=== PATIENT | male | born 1965 | race Caucasian/White ===

== ENCOUNTER 2019-06-09 12:14 | Inpatient (IN) | payer MEDICARE, OTHER ==
[~2019-06-09] VITALS: Ht 180.3 cm; Wt 41.3 kg
[~2019-06-09 12:14] MED LIST: ASPIR 8181 MG PO; B COMPLEX WITH1 EACH PO; Bumetanide PO; CARVEDILOL6.25 MG PO; HUMALOG MI100 UNIT/2 SQ; HUMALOG100 UNIT/1; LEVOTHYROXINE100 MCG PO; Metolazone PO; SIMVASTATIN10 MG PO; SPIRONOLACTONE25 MG PO; TORSEMIDE20 MG PO
--- OUTSIDE RECORDS SUMMARY | 2019-06-09 12:18 | XMS REPORT ---
Author [facility] Address Unknown Phone Unavailable Care Team Providers Care Corporate Responsibility Officer Name Role Phone PRAMOD HANLEY Unavailable Unavailable BEST BAUMANN Unavailable Unavailable Tim COLLIER Unavailable Unavailable Payers Payer Name Policy Type Policy Number Effective Date Expiration Date Problems This patient has no known problems. Allergies, Adverse Reactions, Alerts Allergy Name Allergy Type Status Severity Reaction(s) Onset Date Inactive Date Treating Clinician Comments heparin DA Active U 2018-11-28 00:00:00 heparin DA Active U 2016-02-05 00:00:00 Medications This patient has no known medications. Results Test Description Test Time Test Comments Text Results Atomic Results Result Comments - SP COM CAROTID ANGIO UNIL 2018-12-24 18:20:00 FAX: Nat Mo MD [phone] [place]: St: DIS FAX: Luciano Muller MD [phone] Name: ROHIT MARION [facility] : 1965 Age/S: [address] Unit #: [id number] Loc: [place], [place] [address] Phys: Luciano Muller MD Acct: [id number] Dis Date: 20181203 Status: DIS IN PHONE #: Exam Date: 12/01/2018 1033 FAX #: Reason: SAH EXAMS: CPT CODE: [id number] SP COM CAROTID ANGIO UNIL [id number] PRE PROCEDURAL DIAGNOSIS: 1. Subarachnoid hemorrhage and intracerebral hemorrhage 2. Fall, syncope/dizziness POST PROCEDURAL DIAGNOSIS: 1. Subarachnoid hemorrhage and intracerebral hemorrhage 2. Fall, syncope/dizziness PROCEDURE: 1. Selective catheter ization of bilateral common carotid arteries. 2. Selective catheterization of aortic arch. 3. Selective catheterization of right vertebral artery. 4. Diagnostic angiogram of aortic arch, bilateral common carotid arteries, and right vertebral artery. 5. Ultrasound guided percutaneous entry into right femoral artery. 6. 3-D rotational angiogram via catheterization of the left common carotid artery. 7. 3D rotational angiogram via catheterization of the right vertebral artery. 8. Vascular closure ANESTHESIA: MAC APPROACH: right femoral artery using modified Seldinger technique with a micropuncture set. 5 sheath sheath placed. CONTRAST: 288 cc Omnipaque 300. FLUORO: Time 38.3 min, A plane and B Plane - 2762 mGy PRIMARY SURGEON: Loren Estrada D.O. ESTIMATED BLOOD LOSS: Approximately 150 mL. INFORMED CONSENT: The procedures risks, benefits, and alternatives were discussed with the patient and family. They agreed to proceed. All questions were answered. INDICATION: The patient is a 53 year old Male who presented with syncopal event. The patient was on a treadmill and felt lightheaded. He was found on the ground. He has intracerebral hemorrhage and subarachnoid hemorrhage on CT. CTA of the head done on 11/28/2018 does not reveal any evidence of aneurysm. The cerebral angiogram is considered the gold standard. It is required to best assess for PAGE 1 Signed Report (CONTINUED) FAX: Nat Mo MD [phone] [place]: St: DIS FAX: Luciano Muller MD [phone] Name: ROHIT MARION [facility] : 1965 Age/S: 53/M [address] [place] [address] Blvd Unit #: [id number] Loc: [place], [place] [address] Phys: Luciano Muller MD Acct: [id number] Dis Date: 20181203 Status: DIS IN PHONE #: Exam Date: 12/01/2018 1033 FAX #: Reason: SAH EXAMS: CPT CODE: [id number] SP COM CAROTID ANGIO UNIL [id number] <Continued> evidence of aneurysm or arteriovenous malformation or fistula. Therefore angiographic definition is required to define continued care. TECHNIQUE: After informed consent the patient was brought to the angiography suite and both groin regions were prepped and draped in the usual sterile fashion. The patient demographics, procedure to be performed, patient position, and equipment to be used were confirmed between the performing physicians and support team. Using ultrasound guidance, the right common femoral artery was entered using modified Seldinger technique. A 5 F sheath was placed over a 0.035" PTFE floppy wire using modified Seldinger technique with imaging of the common iliac artery confirming sheath placement. A pigtail catheter was advanced over the aortic arch. Multiple oblique images over the arch at the great vessels was obtained using a pressure injector of 15 cc/sec for 30 cc total. The catheter was straightened with a guide wire and removed. A 5 F diagnostic catheter in conjunction with a .035" angled Glidewire was used to selectively catheterize the bilateral common carotid arteries and right vertebral artery. After each vessel was selected multiple AP, lateral, oblique and magnified angiographic runs were performed with filming over the head and neck. All catheters were removed following confirmation of parent vessel integrity. Hemostasis was attained at the entry site by Mynx. There were no complications during or immediately after the procedure. FINDINGS: AORTIC ARCH: The aortic arch was selectively catheterized. DSA images of aortic arch demonstrate a normal configuration of the arch and great vessels. The arch is class Type I. The origin of the right common carotid artery is on the back wall of the brachiocephalic making it very difficult to access. Visualized daughter branches are normal in distribution. RIGHT COMMON CAROTID: The right common carotid artery was selectively catheterized. The carotid bifurcation is located at the C3-4 level. There is no significant stenosis at the carotid bifurcation. PAGE 2 Signed Report (CONTINUED) FAX: Nat Mo MD [phone] [place]: St: DIS FAX: Luciano Muller MD [phone] Name: ROHIT MARION [facility] : 1965 Age/S: 53/M [address] [place] [address] Blvd Unit #: [id number] Loc: [place] [address] Phys: Luciano Muller MD Acct: [id number] Dis Date: 20181203 Status: DIS IN PHONE #: Exam Date: 12/01/2018 1033 FAX #: Reason: SAH EXAMS: CPT CODE: [id number] SP COM CAROTID ANGIO UNIL [id number] <Continued> RIGHT COMMON CAROTID: The right common carotid artery was selectively catheterized. The upper cervical, petrous, cavernous, and supraclinoid portions of the internal carotid artery opacify normally outside mild atherosclerotic disease and supraclinoid narrowing. The ophthalmic artery opacifies normally. The PCOM artery is small and clears readily. There is duplicate middle cerebral arteries. They opacify normally outside mild atherosclerotic disease. The anterior cerebral artery opacifies normally. There is robust opacification of the anterior communicating artery with opacification of the contralateral A2 distribution. There are normal arterial, capillary and venous phases. No evidence of vasculitis, aneurysm, branch block or AV shunting is seen. There are no areas with absent capillary blush. Major venous sinuses are patent. LEFT COMMON CAROTID (neck): The left common carotid artery was selectively catheterized. The carotid bifurcation is located at the C3-4 level. There is no significant stenosis at the carotid bifurcation. There is mild to moderate narrowing with atherosclerotic plaque at the carotid bulb. This is without flow limitation. LEFT COMMON CAROTID (head): The left common carotid artery was selectively catheterized. The cervical, petrous, cavernous, and supraclinoid portions of the internal carotid artery opacify with mild to moderate atherosclerotic disease. The ophthalmic artery opacifies normally. The PCOM artery opacifies normally. The middle cerebral artery opacifies normally outside some mild atherosclerotic disease. There is a hypoplastic anterior cerebral artery without any significant opacification. There are normal arterial, capillary and venous phases. No evidence of vasculitis, aneurysm, branch block or AV shunting is seen. There are no areas with absent capillary blush. Major venous sinuses are patent. 3D ROTATIONAL ANGIOGRAM (head): 3-D rotational images, post-processed and reviewed on a separate workstation. This was done for better visualization of the left carotid segment over the head. RIGHT VERTEBRAL ARTERY: The right vertebral artery was selectively catheterized. The distal V2, V3, and V4 segments of the right vertebral artery opacify normally. There is a right AICA-PICA complex. There is minimal back-filling of the hypoplastic distal left vertebral artery. There is a left AICA PICA complex. 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 Otherwise the basilar artery, apex, and their branches opacify normally. There is PAGE 3 Signed Report (CONTINUED) FAX: Nat Mo MD [phone] [place]: St: DIS FAX: Luciano Muller MD [phone] Name: ROHIT MARION [facility] : 1965 Age/S: 53/M [address] [place] [address] Blvd Unit #: [id number] Loc: [address] [address] Phys: Luciano Muller MD Acct: [id number] Dis Date: 20181203 Status: DIS IN PHONE #: Exam Date: 12/01/2018 1033 FAX #: Reason: SAH EXAMS: CPT CODE: [id number] [facility] CAROTID ANGIO UNIL [id number] <Continued> also a small fenestration seen in the left proximal GMAT TUTOR. Otherwise the remainder of the left PICA opacifies normally. There is flash filling of the right posterior communicating artery. There is no opacification of the left posterior communicating artery. No evidence of vasculitis, aneurysm, arteriovenous shunting, or branch block. Major venous sinuses are patent. 3D ROTATIONAL ANGIOGRAM (head): A 3D rotational angiogram was required. This allowed for better visualization of the right vertebral artery. This angiogram, distinctly acquired, reconstructed, and reviewed on a separate workstation, demonstrated 3D. IMPRESSION: 1. 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 at 1820 Reported and signed by: Loren Estrada M.D. CC: Nat Castaneda; Luciano Muller MD Technologist: Garfield Young, RT(R); Rolanda Beasley RT(R)(CT) Trnazrd Date/Time/By: 12/24/2018 (1819) : By: [email or web address] Orig Print D/T: S: 12/24/2018 (1822) PAGE 4 Signed Report GLUBED 2018-12-21 15:25:00 GLUBED (test code=GLUBED) 127 MG/DL 70-110 Performed by certified gear milling machine set up operator at [facility] - XR CLAVICLE COMP [id number] 12:07:00 FAX: Nat Mo MD [phone] [place]: St: ADM FAX: Jefferson Miguel [phone] Name: ROHIT MARION [facility] : 1965 Age/S: 53/M [address] [place] [address] Blvd Unit #: [id number] Loc: [place] [address] Phys: Jefferson Charlton MD Acct: [id number] Dis Date: Status: ADM IN PHONE #: [phone] Exam Date: 12/21/2018 1049 FAX #: [phone] Reason: F/U FRACTURE AND ASSESS HEALING EXAMS: CPT CODE: [id number] [place] [id number] CLINICAL HISTORY: Follow-up fracture and assess healing. COMPARISON: Chest x-ray performed on November 29, 2018. Films of left clavicle demonstrate fracture involving the distal end of the left clavicle with fracture line still visible. No significant callus forma tion is noted. Continued follow-up is recommended. Electronically S igned by Cecilia Villareal on 12/21/2018 at 1207 Reported and signed by: Michael Villareal M.D. CC: Nat english; Jefferson Charlton MD Technologist: RT Herrera (R) Trnscrd Date/Time/By: 12/21/2018 (9366) : By: Yuval Orig Print D/T: S: 12/21/2018 (9165) PAGE 1 Signed Report GLUBED 2018-12-21 06:20:00* Test Item Value Reference Range Comments GLUBED (test code=GLUBED) 92 MG/DL 70-110 Performed by certified gear milling machine set up operator at [facility] [id number] 21:39:00* Test Item Value Reference Range Comments GLUBED (test code=GLUBED) 202 MG/DL 70-110 Performed by certified gear milling machine set up operator at [facility] [id number] 18:04:00* Test Item Value Reference Range Comments GLUBED (test code=GLUBED) 123 MG/DL 70-110 Performed by certified gear milling machine set up operator at [facility] CBC W/AUTO [id number] 16:13:00* Test Item Value Reference Range Comments WHITE BLOOD CELL (test code=WBC) 4.81 x10 3/uL 4.5-11.0 RED BLOOD CELL (test code=RBC) 2.37 x10 6/uL 4.00-5.60 HEMOGLOBIN (test code=HGB) 7.6 g/dL 12.5-16.9 HEMATOCRIT (test code=HCT) 23.2 % 37.5-50.7 MEAN CELL VOLUME (test code=MCV) 97.9 fL 81.0-99.0 MEAN CELL HGB (test code=MCH) 32.1 pg 27.0-33.0 MEAN CELL HGB CONCETRATION (test code=MCHC) 32.8 g/dL 33.0-37.0 RED CELL DISTRIBUTION WIDTH CV (test code=RDW) 15.4 % 11.5-14.5 RED CELL DISTRIBUTION WIDTH SD (test code=RDW-SD) 55.2 fL 37.0-54.0 PLATELET COUNT (test code=PLT) 165 x10 3/uL 150-400 MEAN PLATELET VOLUME (test code=MPV) 11.0 fL 7.0-9.0 NEUTROPHIL % (test code=NT%) 78.4 % 56.0-77.0 IMMATURE GRANULOCYTE % (test code=IG%) 0.6 % 0.0-2.0 LYMPHOCYTE % (test code=LY%) 7.9 % 14.0-32.0 MONOCYTE % (test code=MO%) 8.7 % 4.8-9.0 EOSINOPHIL % (test code=EO%) 4.0 % 0.3-3.7 BASOPHIL % (test code=BA%) 0.4 % 0.0-2.0 NUCLEATED RBC % (test code=NRBC%) 0.0 % 0-0 NEUTROPHIL # (test code=NT#) 3.77 x10 3/uL 2.0-7.6 IMMATURE GRANULOCYTE # (test code=IG#) 0.03 x10 3/uL 0.00-0.03 LYMPHOCYTE # (test code=LY#) 0.38 x10 3/uL 1.0-3.8 MONOCYTE # (test code=MO#) 0.42 x10 3/uL 0.1-0.8 EOSINOPHIL # (test code=EO#) 0.19 x10 3/uL 0.0-0.2 BASOPHIL # (test code=BA#) 0.02 x10 3/uL 0.0-0.2 NUCLEATED RBC # (test code=NRBC#) 0.00 x10 3/uL 0.0-0.1 MANUAL DIFF REQUIRED (test code=MDIFF) NO [id number] 11:08:00* Test Item Value Reference Range Comments GLUBED (test code=GLUBED) 137 MG/DL 70-110 Performed by certified gear milling machine set up operator at [facility] [id number] 06:49:00* Test Item Value Reference Range Comments GLUBED (test code=GLUBED) 248 MG/DL 70-110 Performed by certified gear milling machine set up operator at [facility] [id number] 00:24:00* Test Item Value Reference Range Comments GLUBED (test code=GLUBED) 212 MG/DL 70-110 Performed by certified gear milling machine set up operator at [facility] [id number] 22:25:00* Test Item Value Reference Range Comments GLUBED (test code=GLUBED) 137 MG/DL 70-110 Performed by certified gear milling machine set up operator at [facility] [id number] 20:48:00* Test Item Value Reference Range Comments GLUBED (test code=GLUBED) 60 MG/DL 70-110 Performed by certified gear milling machine set up operator at [facility] [id number] 16:25:00* Test Item Value Reference Range Comments GLUBED (test code=GLUBED) 111 MG/DL 70-110 Performed by certified gear milling machine set up operator at [facility] [id number] 12:13:00* Test Item Value Reference Range Comments GLUBED (test code=GLUBED) 121 MG/DL 70-110 Performed by certified gear milling machine set up operator at [facility] [id number] 06:21:00* Test Item Value Reference Range Comments GLUBED (test code=GLUBED) 258 MG/DL 70-110 Performed by certified gear milling machine set up operator at [facility] [id number] 20:46:00* Test Item Value Reference Range Comments GLUBED (test code=GLUBED) 208 MG/DL 70-110 Performed by certified gear milling machine set up operator at [facility] [id number] 16:51:00* Test Item Value Reference Range Comments GLUBED (test code=GLUBED) 87 MG/DL 70-110 Performed by certified gear milling machine set up operator at [facility] [id number] 11:36:00* Test Item Value Reference Range Comments GLUBED (test code=GLUBED) 77 MG/DL 70-110 Performed by certified gear milling machine set up operator at [facility] [id number] 07:45:00* Test Item Value Reference Range Comments GLUBED (test code=GLUBED) 292 MG/DL 70-110 Performed by certified gear milling machine set up operator at [facility] [id number] 06:46:00* Test Item Value Reference Range Comments GLUBED (test code=GLUBED) 459 MG/DL 70-110 Performed by certified gear milling machine set up operator at [facility] [id number] 20:29:00* Test Item Value Reference Range Comments GLUBED (test code=GLUBED) 149 MG/DL 70-110 Performed by certified gear milling machine set up operator at [facility] [id number] 18:03:00* Test Item Value Reference Range Comments GLUBED (test code=GLUBED) 80 MG/DL 70-110 Performed by certified gear milling machine set up operator at [facility] [id number] 12:14:00* Test Item Value Reference Range Comments GLUBED (test code=GLUBED) 129 MG/DL 70-110 Performed by certified gear milling machine set up operator at [facility] [id number] 12:14:00* Test Item Value Reference Range Comments GLUBED (test code=GLUBED) 129 MG/DL 70-110 Performed by certified gear milling machine set up operator at [facility] [id number] 09:39:00* Test Item Value Reference Range Comments GLUBED (test code=GLUBED) 257 MG/DL 70-110 Performed by certified gear milling machine set up operator at [facility] [id number] 06:30:00* Test Item Value Reference Range Comments GLUBED (test code=GLUBED) 122 MG/DL 70-110 Performed by certified gear milling machine set up operator at [facility] [id number] 20:03:00* Test Item Value Reference Range Comments GLUBED (test code=GLUBED) 94 MG/DL 70-110 Performed by certified gear milling machine set up operator at [facility] [id number] 16:25:00* Test Item Value Reference Range Comments GLUBED (test code=GLUBED) 112 MG/DL 70-110 Performed by certified gear milling machine set up operator at [facility] [id number] 14:00:00* Test Item Value Reference Range Comments GLUBED (test code=GLUBED) 123 MG/DL 70-110 Performed by certified gear milling machine set up operator at [facility] [id number] 12:24:00* Test Item Value Reference Range Comments GLUBED (test code=GLUBED) 54 MG/DL 70-110 Performed by certified gear milling machine set up operator at [facility] [id number] 05:49:00* Test Item Value Reference Range Comments GLUBED (test code=GLUBED) 281 MG/DL 70-110 Performed by certified gear milling machine set up operator at [facility] [id number] 20:03:00* Test Item Value Reference Range Comments GLUBED (test code=GLUBED) 177 MG/DL 70-110 Performed by certified gear milling machine set up operator at [facility] [id number] 16:12:00* Test Item Value Reference Range Comments GLUBED (test code=GLUBED) 77 MG/DL 70-110 Performed by certified gear milling machine set up operator at [facility] [id number] 12:09:00* Test Item Value Reference Range Comments GLUBED (test code=GLUBED) 101 MG/DL 70-110 Performed by certified gear milling machine set up operator at [facility] HGB [id number] 07:39:00* Test Item Value Reference Range Comments HEMOGLOBIN (test code=HGB) 8.1 g/dL 12.5-16.9 HEMATOCRIT (test code=HCT) 25.8 % 37.5-50.7 BASIC METABOLIC [id number] 07:29:00* Test Item Value Reference Range Comments SODIUM (test code=NA) 133 mEq/L 134-147 POTASSIUM (test code=K) 5.0 mEq/L 3.4-5.0 CHLORIDE (test code=CL) 98 mEq/L 100-108 CARBON DIOXIDE (test code=CO2) 24 mEq/L 21-33 ANION GAP (test code=GAP) 16 0-20 GLUCOSE (test code=GLU) 280 mg/dL 70-110 BLOOD UREA NITROGEN (test code=BUN) 105 mg/dL 7-18 GLOMERULAR FILTRATION RATE (test code=GFR) 6.8 90-95 Units of measure=ml/min/1.73 m2 CREATININE (test code=CREAT) 8.3 mg/dL 0.6-1.3 CALCIUM (test code=CA) 8.5 mg/dL 8.0-10.5 [id number] 07:29:00* Test Item Value Reference Range Comments PHOSPHOROUS (test code=PHOS) 6.9 MG/DL 2.5-4.9 [id number] 06:21:00* Test Item Value Reference Range Comments GLUBED (test code=GLUBED) 238 MG/DL 70-110 Performed by certified gear milling machine set up operator at [facility] [id number] 05:29:00* Test Item Value Reference Range Comments GLUBED (test code=GLUBED) 54 MG/DL 70-110 Performed by certified gear milling machine set up operator at [facility] [id number] 05:29:00* Test Item Value Reference Range Comments GLUBED (test code=GLUBED) 12 MG/DL 70-110 Performed by certified gear milling machine set up operator at [facility] [id number] 20:44:00* Test Item Value Reference Range Comments GLUBED (test code=GLUBED) 297 MG/DL 70-110 Performed by certified gear milling machine set up operator at [facility] [id number] 17:15:00* Test Item Value Reference Range Comments GLUBED (test code=GLUBED) 85 MG/DL 70-110 Performed by certified gear milling machine set up operator at [facility] [id number] 11:24:00* Test Item Value Reference Range Comments GLUBED (test code=GLUBED) 285 MG/DL 70-110 Performed by certified gear milling machine set up operator at [facility] [id number] 06:20:00* Test Item Value Reference Range Comments GLUBED (test code=GLUBED) 213 MG/DL 70-110 Performed by certified gear milling machine set up operator at [facility] [id number] 21:27:00* Test Item Value Reference Range Comments GLUBED (test code=GLUBED) 150 MG/DL 70-110 Performed by certified gear milling machine set up operator at [facility] [id number] 17:45:00* Test Item Value Reference Range Comments GLUBED (test code=GLUBED) 89 MG/DL 70-110 Performed by certified gear milling machine set up operator at [facility] BASIC METABOLIC [id number] 15:26:00* Test Item Value Reference Range Comments SODIUM (test code=NA) 137 mEq/L 134-147 POTASSIUM (test code=K) 4.6 mEq/L 3.4-5.0 CHLORIDE (test code=CL) 102 mEq/L 100-108 CARBON DIOXIDE (test code=CO2) 21 mEq/L 21-33 ANION GAP (test code=GAP) 19 0-20 GLUCOSE (test code=GLU) 199 mg/dL 70-110 BLOOD UREA NITROGEN (test code=BUN) 129 mg/dL 7-18 GLOMERULAR FILTRATION RATE (test code=GFR) 5.6 90-95 Units of measure=ml/min/1.73 m2 CREATININE (test code=CREAT) 9.8 mg/dL 0.6-1.3 CALCIUM (test code=CA) 8.0 mg/dL 8.0-10.5 [id number] 15:26:00* Test Item Value Reference Range Comments PHOSPHOROUS (test code=PHOS) 7.6 MG/DL 2.5-4.9 CBC W/AUTO [id number] 15:06:00* Test Item Value Reference Range Comments WHITE BLOOD CELL (test code=WBC) 8.38 x10 3/uL 4.5-11.0 RED BLOOD CELL (test code=RBC) 2.57 x10 6/uL 4.00-5.60 HEMOGLOBIN (test code=HGB) 8.1 g/dL 12.5-16.9 HEMATOCRIT (test code=HCT) 25.7 % 37.5-50.7 MEAN CELL VOLUME (test code=MCV) 100.0 fL 81.0-99.0 MEAN CELL HGB (test code=MCH) 31.5 pg 27.0-33.0 MEAN CELL HGB CONCETRATION (test code=MCHC) 31.5 g/dL 33.0-37.0 RED CELL DISTRIBUTION WIDTH CV (test code=RDW) 14.6 % 11.5-14.5 RED CELL DISTRIBUTION WIDTH SD (test code=RDW-SD) 53.8 fL 37.0-54.0 PLATELET COUNT (test code=PLT) 134 x10 3/uL 150-400 MEAN PLATELET VOLUME (test code=MPV) 12.7 fL 7.0-9.0 NEUTROPHIL % (test code=NT%) 83.2 % 56.0-77.0 IMMATURE GRANULOCYTE % (test code=IG%) 0.5 % 0.0-2.0 LYMPHOCYTE % (test code=LY%) 6.1 % 14.0-32.0 MONOCYTE % (test code=MO%) 7.3 % 4.8-9.0 EOSINOPHIL % (test code=EO%) 2.4 % 0.3-3.7 BASOPHIL % (test code=BA%) 0.5 % 0.0-2.0 NUCLEATED RBC % (test code=NRBC%) 0.0 % 0-0 NEUTROPHIL # (test code=NT#) 6.98 x10 3/uL 2.0-7.6 IMMATURE GRANULOCYTE # (test code=IG#) 0.04 x10 3/uL 0.00-0.03 LYMPHOCYTE # (test code=LY#) 0.51 x10 3/uL 1.0-3.8 MONOCYTE # (test code=MO#) 0.61 x10 3/uL 0.1-0.8 EOSINOPHIL # (test code=EO#) 0.20 x10 3/uL 0.0-0.2 BASOPHIL # (test code=BA#) 0.04 x10 3/uL 0.0-0.2 NUCLEATED RBC # (test code=NRBC#) 0.00 x10 3/uL 0.0-0.1 MANUAL DIFF REQUIRED (test code=MDIFF) NO [id number] 11:44:00* Test Item Value Reference Range Comments GLUBED (test code=GLUBED) 312 MG/DL 70-110 Performed by certified gear milling machine set up operator at [facility] [id number] 07:04:00* Test Item Value Reference Range Comments GLUBED (test code=GLUBED) 43 MG/DL 70-110 Performed by certified gear milling machine set up operator at [facility] [id number] 06:10:00* Test Item Value Reference Range Comments GLUBED (test code=GLUBED) 138 MG/DL 70-110 Performed by certified gear milling machine set up operator at [facility] [id number] 20:08:00* Test Item Value Reference Range Comments GLUBED (test code=GLUBED) 357 MG/DL 70-110 Performed by certified gear milling machine set up operator at [facility] [id number] 16:48:00* Test Item Value Reference Range Comments GLUBED (test code=GLUBED) 77 MG/DL 70-110 Performed by certified gear milling machine set up operator at [facility] [id number] 11:57:00* Test Item Value Reference Range Comments GLUBED (test code=GLUBED) 155 MG/DL 70-110 Performed by certified gear milling machine set up operator at [facility] [id number] 06:33:00* Test Item Value Reference Range Comments GLUBED (test code=GLUBED) 148 MG/DL 70-110 Performed by certified gear milling machine set up operator at [facility] [id number] 19:54:00* Test Item Value Reference Range Comments GLUBED (test code=GLUBED) 130 MG/DL 70-110 Performed by certified gear milling machine set up operator at [facility] [id number] 16:11:00* Test Item Value Reference Range Comments GLUBED (test code=GLUBED) 102 MG/DL 70-110 Performed by certified gear milling machine set up operator at [facility] [id number] 11:39:00* Test Item Value Reference Range Comments GLUBED (test code=GLUBED) 176 MG/DL 70-110 Performed by certified gear milling machine set up operator at [facility] [id number] 06:25:00* Test Item Value Reference Range Comments GLUBED (test code=GLUBED) 132 MG/DL 70-110 Performed by certified gear milling machine set up operator at [facility] [id number] 21:22:00* Test Item Value Reference Range Comments GLUBED (test code=GLUBED) 113 MG/DL 70-110 Performed by certified gear milling machine set up operator at [facility] [id number] 21:19:00* Test Item Value Reference Range Comments GLUBED (test code=GLUBED) 164 MG/DL 70-110 Performed by certified gear milling machine set up operator at [facility] [id number] 17:18:00* Test Item Value Reference Range Comments GLUBED (test code=GLUBED) 82 MG/DL 70-110 Performed by certified gear milling machine set up operator at [facility] [id number] 11:23:00* Test Item Value Reference Range Comments GLUBED (test code=GLUBED) 115 MG/DL 70-110 Performed by certified gear milling machine set up operator at [facility] [id number] 06:45:00* Test Item Value Reference Range Comments GLUBED (test code=GLUBED) 137 MG/DL 70-110 Performed by certified gear milling machine set up operator at [facility] [id number] 06:12:00* Test Item Value Reference Range Comments GLUBED (test code=GLUBED) 49 MG/DL 70-110 Performed by certified gear milling machine set up operator at [facility] [id number] 20:46:00* Test Item Value Reference Range Comments GLUBED (test code=GLUBED) 120 MG/DL 70-110 Performed by certified gear milling machine set up operator at [facility] [id number] 19:13:00* Test Item Value Reference Range Comments GLUBED (test code=GLUBED) 189 MG/DL 70-110 Performed by certified gear milling machine set up operator at [facility] [id number] 11:19:00* Test Item Value Reference Range Comments GLUBED (test code=GLUBED) 386 MG/DL 70-110 Performed by certified gear milling machine set up operator at [facility] [id number] 07:38:00* Test Item Value Reference Range Comments GLUBED (test code=GLUBED) 133 MG/DL 70-110 Performed by certified gear milling machine set up operator at [facility] [id number] 07:38:00* Test Item Value Reference Range Comments GLUBED (test code=GLUBED) 30 MG/DL 70-110 Performed by certified gear milling machine set up operator at [facility] [id number] 19:57:00* Test Item Value Reference Range Comments GLUBED (test code=GLUBED) 94 MG/DL 70-110 Performed by certified gear milling machine set up operator at [facility] [id number] 18:21:00* Test Item Value Reference Range Comments GLUBED (test code=GLUBED) 102 MG/DL 70-110 Performed by certified gear milling machine set up operator at [facility] [id number] 16:53:00* Test Item Value Reference Range Comments GLUBED (test code=GLUBED) 135 MG/DL 70-110 Performed by certified gear milling machine set up operator at [facility] [id number] 11:56:00* Test Item Value Reference Range Comments GLUBED (test code=GLUBED) 162 MG/DL 70-110 Performed by certified gear milling machine set up operator at [facility] [id number] 07:00:00* Test Item Value Reference Range Comments GLUBED (test code=GLUBED) 157 MG/DL 70-110 Performed by certified gear milling machine set up operator at [facility] [id number] 21:14:00* Test Item Value Reference Range Comments GLUBED (test code=GLUBED) 211 MG/DL 70-110 Performed by certified gear milling machine set up operator at [facility] [id number] 16:51:00* Test Item Value Reference Range Comments GLUBED (test code=GLUBED) 97 MG/DL 70-110 Performed by certified gear milling machine set up operator at [facility] [id number] 11:28:00* Test Item Value Reference Range Comments GLUBED (test code=GLUBED) 386 MG/DL 70-110 Performed by certified gear milling machine set up operator at [facility] [id number] 06:24:00* Test Item Value Reference Range Comments GLUBED (test code=GLUBED) 239 MG/DL 70-110 Performed by certified gear milling machine set up operator at [facility] T4 [id number] 22:58:00* Test Item Value Reference Range Comments T4 FREE (test code=T4F) 1.4 ng/dL 0.77-1.61 THYROID STIMULATING [id number] 22:58:00* Test Item Value Reference Range Comments THYROID STIMULATING HORMONE (test code=TSH) 1.82 0.42-5.47 Results in brandyn-International Units/mL HGBA1C%2018-12-06 22:56:00* Test Item Value Reference Range Comments HGBA1C% (test code=HGBA1C%) 6.8 %A1C 4.8-6.0 [id number] 22:25:00* Test Item Value Reference Range Comments GLUBED (test code=GLUBED) 398 MG/DL 70-110 Performed by certified gear milling machine set up operator at [facility] [id number] 19:02:00* Test Item Value Reference Range Comments GLUBED (test code=GLUBED) 185 MG/DL 70-110 Performed by certified gear milling machine set up operator at [facility] [id number] 11:29:00* Test Item Value Reference Range Comments GLUBED (test code=GLUBED) 343 MG/DL 70-110 Performed by certified gear milling machine set up operator at [facility] [id number] 09:56:00* Test Item Value Reference Range Comments GLUBED (test code=GLUBED) 433 MG/DL 70-110 Performed by certified gear milling machine set up operator at [facility] [id number] 08:34:00* Test Item Value Reference Range Comments GLUBED (test code=GLUBED) 444 MG/DL 70-110 Performed by certified gear milling machine set up operator at [facility] [id number] 19:45:00* Test Item Value Reference Range Comments GLUBED (test code=GLUBED) 320 MG/DL 70-110 Performed by certified gear milling machine set up operator at [facility] [id number] 16:31:00* Test Item Value Reference Range Comments GLUBED (test code=GLUBED) 302 MG/DL 70-110 Performed by certified gear milling machine set up operator at [facility] [id number] 12:45:00* Test Item Value Reference Range Comments GLUBED (test code=GLUBED) 386 MG/DL 70-110 Performed by certified gear milling machine set up operator at [facility] [id number] 11:44:00* Test Item Value Reference Range Comments GLUBED (test code=GLUBED) 407 MG/DL 70-110 Performed by certified gear milling machine set up operator at [facility] [id number] 07:02:00* Test Item Value Reference Range Comments GLUBED (test code=GLUBED) 143 MG/DL 70-110 Performed by certified gear milling machine set up operator at [facility] [id number] 07:02:00* Test Item Value Reference Range Comments GLUBED (test code=GLUBED) 570 MG/DL 70-110 Performed by certified gear milling machine set up operator at [facility] [id number] 07:02:00* Test Item Value Reference Range Comments GLUBED (test code=GLUBED) 569 MG/DL 70-110 Performed by certified gear milling machine set up operator at [facility] [id number] 07:02:00* Test Item Value Reference Range Comments GLUBED (test code=GLUBED) 497 MG/DL 70-110 Performed by certified gear milling machine set up operator at [facility] [id number] 23:52:00* Test Item Value Reference Range Comments GLUBED (test code=GLUBED) 210 MG/DL 70-110 Performed by certified gear milling machine set up operator at [facility] [id number] 23:52:00* Test Item Value Reference Range Comments GLUBED (test code=GLUBED) 439 MG/DL 70-110 Performed by certified gear milling machine set up operator at [facility] [id number] 11:25:00* Test Item Value Reference Range Comments GLUBED (test code=GLUBED) 262 MG/DL 70-110 Performed by certified gear milling machine set up operator at [facility] VITAMIN [id number] 08:51:00* Test Item Value Reference Range Comments VITAMIN B12 (test code=VITB12) 952 pg/mL 193-986 FOLIC [id number] 08:51:00* Test Item Value Reference Range Comments FOLIC ACID (test code=FOL) 5.7 ng/mL 3.1-17.5 THYROID STIMULATING [id number] 08:51:00* Test Item Value Reference Range Comments THYROID STIMULATING HORMONE (test code=TSH) 2.98 0.42-5.47 Results in brandyn-International Units/mL VITAMIN D 98-[id number] 08:51:00* Test Item Value Reference Range Comments VITAMIN D 25-HYDROXY (test code=VITD25) 14.0 ng/mL 30-100 VITAMIN [id number] 08:32:00* Test Item Value Reference Range Comments VITAMIN B12 (test code=VITB12) pg/mL 193-986 FOLIC [id number] 08:32:00* Test Item Value Reference Range Comments FOLIC ACID (test code=FOL) ng/mL 3.1-17.5 THYROID STIMULATING [id number] 08:32:00* Test Item Value Reference Range Comments THYROID STIMULATING HORMONE (test code=TSH) 0.42-5.47 VITAMIN D 60-[id number] 08:32:00* Test Item Value Reference Range Comments VITAMIN D 25-HYDROXY (test code=VITD25) 14.0 ng/mL 30-100 [id number] 07:56:00* Test Item Value Reference Range Comments GLUBED (test code=GLUBED) 452 MG/DL 70-110 Performed by certified gear milling machine set up operator at [facility] [id number] 07:56:00* Test Item Value Reference Range Comments GLUBED (test code=GLUBED) 466 MG/DL 70-110 Performed by certified gear milling machine set up operator at [facility] [id number] 06:16:00* Test Item Value Reference Range Comments GLUBED (test code=GLUBED) 250 MG/DL 70-110 Performed by certified gear milling machine set up operator at [facility] [id number] 21:22:00* Test Item Value Reference Range Comments GLUBED (test code=GLUBED) 286 MG/DL 70-110 Performed by certified gear milling machine set up operator at [facility] [id number] 18:01:00* Test Item Value Reference Range Comments GLUBED (test code=GLUBED) 440 MG/DL 70-110 Performed by certified gear milling machine set up operator at [facility] [id number] 11:39:00* Test Item Value Reference Range Comments GLUBED (test code=GLUBED) 177 MG/DL 70-110 Performed by certified gear milling machine set up operator at [facility] CBC W/AUTO [id number] 07:28:00* Test Item Value Reference Range Comments WHITE BLOOD CELL (test code=WBC) 8.05 x10 3/uL 4.5-11.0 RED BLOOD CELL (test code=RBC) 3.15 x10 6/uL 4.00-5.60 HEMOGLOBIN (test code=HGB) 10.1 g/dL 12.5-16.9 HEMATOCRIT (test code=HCT) 32.9 % 37.5-50.7 MEAN CELL VOLUME (test code=MCV) 104.4 fL 81.0-99.0 MEAN CELL HGB (test code=MCH) 32.1 pg 27.0-33.0 MEAN CELL HGB CONCETRATION (test code=MCHC) 30.7 g/dL 33.0-37.0 RED CELL DISTRIBUTION WIDTH CV (test code=RDW) 15.5 % 11.5-14.5 RED CELL DISTRIBUTION WIDTH SD (test code=RDW-SD) 59.1 fL 37.0-54.0 PLATELET COUNT (test code=PLT) 126 x10 3/uL 150-400 MEAN PLATELET VOLUME (test code=MPV) 11.4 fL 7.0-9.0 NEUTROPHIL % (test code=NT%) 78.4 % 56.0-77.0 IMMATURE GRANULOCYTE % (test code=IG%) 0.5 % 0.0-2.0 LYMPHOCYTE % (test code=LY%) 8.8 % 14.0-32.0 MONOCYTE % (test code=MO%) 9.1 % 4.8-9.0 EOSINOPHIL % (test code=EO%) 2.6 % 0.3-3.7 BASOPHIL % (test code=BA%) 0.6 % 0.0-2.0 NUCLEATED RBC % (test code=NRBC%) 0.0 % 0-0 NEUTROPHIL # (test code=NT#) 6.31 x10 3/uL 2.0-7.6 IMMATURE GRANULOCYTE # (test code=IG#) 0.04 x10 3/uL 0.00-0.03 LYMPHOCYTE # (test code=LY#) 0.71 x10 3/uL 1.0-3.8 MONOCYTE # (test code=MO#) 0.73 x10 3/uL 0.1-0.8 EOSINOPHIL # (test code=EO#) 0.21 x10 3/uL 0.0-0.2 BASOPHIL # (test code=BA#) 0.05 x10 3/uL 0.0-0.2 NUCLEATED RBC # (test code=NRBC#) 0.00 x10 3/uL 0.0-0.1 MANUAL DIFF REQUIRED (test code=MDIFF) NO BASIC METABOLIC [id number] 07:21:00* Test Item Value Reference Range Comments SODIUM (test code=NA) 141 mEq/L 134-147 POTASSIUM (test code=K) 4.7 mEq/L 3.4-5.0 CHLORIDE (test code=CL) 106 mEq/L 100-108 CARBON DIOXIDE (test code=CO2) 24 mEq/L 21-33 ANION GAP (test code=GAP) 16 0-20 GLUCOSE (test code=GLU) 116 mg/dL 70-110 BLOOD UREA NITROGEN (test code=BUN) 82 mg/dL 7-18 GLOMERULAR FILTRATION RATE (test code=GFR) 5.8 90-95 Units of measure=ml/min/1.73 m2 CREATININE (test code=CREAT) 9.5 mg/dL 0.6-1.3 CALCIUM (test code=CA) 8.1 mg/dL 8.0-10.5 [id number] 05:55:00* Test Item Value Reference Range Comments GLUBED (test code=GLUBED) 114 MG/DL 70-110 Performed by certified gear milling machine set up operator at [facility] [id number] 00:02:00* Test Item Value Reference Range Comments GLUBED (test code=GLUBED) 134 MG/DL 70-110 Performed by certified gear milling machine set up operator at [facility] [id number] 18:44:00* Test Item Value Reference Range Comments GLUBED (test code=GLUBED) 304 MG/DL 70-110 Performed by certified gear milling machine set up operator at [facility] CBC W/AUTO [id number] 13:10:00* Test Item Value Reference Range Comments WHITE BLOOD CELL (test code=WBC) 7.99 x10 3/uL 4.5-11.0 RED BLOOD CELL (test code=RBC) 3.45 x10 6/uL 4.00-5.60 HEMOGLOBIN (test code=HGB) 11.2 g/dL 12.5-16.9 HEMATOCRIT (test code=HCT) 36.4 % 37.5-50.7 MEAN CELL VOLUME (test code=MCV) 105.5 fL 81.0-99.0 MEAN CELL HGB (test code=MCH) 32.5 pg 27.0-33.0 MEAN CELL HGB CONCETRATION (test code=MCHC) 30.8 g/dL 33.0-37.0 RED CELL DISTRIBUTION WIDTH CV (test code=RDW) 15.3 % 11.5-14.5 RED CELL DISTRIBUTION WIDTH SD (test code=RDW-SD) 59.5 fL 37.0-54.0 PLATELET COUNT (test code=PLT) 98 x10 3/uL 150-400 IMMATURE PLATELET FRACTION (test code=IPF) 3.6 % 0.9-11.2 MEAN PLATELET VOLUME (test code=MPV) 11.7 fL 7.0-9.0 NEUTROPHIL % (test code=NT%) 89.2 % 56.0-77.0 IMMATURE GRANULOCYTE % (test code=IG%) 0.3 % 0.0-2.0 LYMPHOCYTE % (test code=LY%) 3.5 % 14.0-32.0 MONOCYTE % (test code=MO%) 6.8 % 4.8-9.0 EOSINOPHIL % (test code=EO%) 0.1 % 0.3-3.7 BASOPHIL % (test code=BA%) 0.1 % 0.0-2.0 NUCLEATED RBC % (test code=NRBC%) 0.0 % 0-0 NEUTROPHIL # (test code=NT#) 7.13 x10 3/uL 2.0-7.6 IMMATURE GRANULOCYTE # (test code=IG#) 0.02 x10 3/uL 0.00-0.03 LYMPHOCYTE # (test code=LY#) 0.28 x10 3/uL 1.0-3.8 MONOCYTE # (test code=MO#) 0.54 x10 3/uL 0.1-0.8 EOSINOPHIL # (test code=EO#) 0.01 x10 3/uL 0.0-0.2 BASOPHIL # (test code=BA#) 0.01 x10 3/uL 0.0-0.2 NUCLEATED RBC # (test code=NRBC#) 0.00 x10 3/uL 0.0-0.1 MANUAL DIFF REQUIRED (test code=MDIFF) NO PLT [id number] 13:10:00* Test Item Value Reference Range Comments PLATELET ESTIMATE (test code=PLTEST) 148-185 THOUSAND ADEQUATE PLATELET MORPHOLOGY (test code=PLTMORPH) LARGE PLATELETS [id number] 12:43:00* Test Item Value Reference Range Comments GLUBED (test code=GLUBED) 338 MG/DL 70-110 Performed by certified gear milling machine set up operator at [facility] [id number] 07:37:00* Test Item Value Reference Range Comments GLUBED (test code=GLUBED) 304 MG/DL 70-110 Performed by certified gear milling machine set up operator at [facility] CBC W/AUTO [id number] 07:28:00* Test Item Value Reference Range Comments WHITE BLOOD CELL (test code=WBC) 7.99 x10 3/uL 4.5-11.0 RED BLOOD CELL (test code=RBC) 3.45 x10 6/uL 4.00-5.60 HEMOGLOBIN (test code=HGB) 11.2 g/dL 12.5-16.9 HEMATOCRIT (test code=HCT) 36.4 % 37.5-50.7 MEAN CELL VOLUME (test code=MCV) 105.5 fL 81.0-99.0 MEAN CELL HGB (test code=MCH) 32.5 pg 27.0-33.0 MEAN CELL HGB CONCETRATION (test code=MCHC) 30.8 g/dL 33.0-37.0 RED CELL DISTRIBUTION WIDTH CV (test code=RDW) 15.3 % 11.5-14.5 RED CELL DISTRIBUTION WIDTH SD (test code=RDW-SD) 59.5 fL 37.0-54.0 PLATELET COUNT (test code=PLT) 98 x10 3/uL 150-400 IMMATURE PLATELET FRACTION (test code=IPF) 3.6 % 0.9-11.2 MEAN PLATELET VOLUME (test code=MPV) 11.7 fL 7.0-9.0 NEUTROPHIL % (test code=NT%) 89.2 % 56.0-77.0 IMMATURE GRANULOCYTE % (test code=IG%) 0.3 % 0.0-2.0 LYMPHOCYTE % (test code=LY%) 3.5 % 14.0-32.0 MONOCYTE % (test code=MO%) 6.8 % 4.8-9.0 EOSINOPHIL % (test code=EO%) 0.1 % 0.3-3.7 BASOPHIL % (test code=BA%) 0.1 % 0.0-2.0 NUCLEATED RBC % (test code=NRBC%) 0.0 % 0-0 NEUTROPHIL # (test code=NT#) 7.13 x10 3/uL 2.0-7.6 IMMATURE GRANULOCYTE # (test code=IG#) 0.02 x10 3/uL 0.00-0.03 LYMPHOCYTE # (test code=LY#) 0.28 x10 3/uL 1.0-3.8 MONOCYTE # (test code=MO#) 0.54 x10 3/uL 0.1-0.8 EOSINOPHIL # (test code=EO#) 0.01 x10 3/uL 0.0-0.2 BASOPHIL # (test code=BA#) 0.01 x10 3/uL 0.0-0.2 NUCLEATED RBC # (test code=NRBC#) 0.00 x10 3/uL 0.0-0.1 MANUAL DIFF REQUIRED (test code=MDIFF) NO PLT [id number] 07:28:00* Test Item Value Reference Range Comments PLATELET ESTIMATE (test code=PLTEST) THOUSAND ADEQUATE CBC W/AUTO [id number] 07:28:00* Test Item Value Reference Range Comments WHITE BLOOD CELL (test code=WBC) 7.99 x10 3/uL 4.5-11.0 RED BLOOD CELL (test code=RBC) 3.45 x10 6/uL 4.00-5.60 HEMOGLOBIN (test code=HGB) 11.2 g/dL 12.5-16.9 HEMATOCRIT (test code=HCT) 36.4 % 37.5-50.7 MEAN CELL VOLUME (test code=MCV) 105.5 fL 81.0-99.0 MEAN CELL HGB (test code=MCH) 32.5 pg 27.0-33.0 MEAN CELL HGB CONCETRATION (test code=MCHC) 30.8 g/dL 33.0-37.0 RED CELL DISTRIBUTION WIDTH CV (test code=RDW) 15.3 % 11.5-14.5 RED CELL DISTRIBUTION WIDTH SD (test code=RDW-SD) 59.5 fL 37.0-54.0 PLATELET COUNT (test code=PLT) 98 x10 3/uL 150-400 IMMATURE PLATELET FRACTION (test code=IPF) 3.6 % 0.9-11.2 MEAN PLATELET VOLUME (test code=MPV) 11.7 fL 7.0-9.0 NEUTROPHIL % (test code=NT%) 89.2 % 56.0-77.0 IMMATURE GRANULOCYTE % (test code=IG%) 0.3 % 0.0-2.0 LYMPHOCYTE % (test code=LY%) 3.5 % 14.0-32.0 MONOCYTE % (test code=MO%) 6.8 % 4.8-9.0 EOSINOPHIL % (test code=EO%) 0.1 % 0.3-3.7 BASOPHIL % (test code=BA%) 0.1 % 0.0-2.0 NUCLEATED RBC % (test code=NRBC%) 0.0 % 0-0 NEUTROPHIL # (test code=NT#) 7.13 x10 3/uL 2.0-7.6 IMMATURE GRANULOCYTE # (test code=IG#) 0.02 x10 3/uL 0.00-0.03 LYMPHOCYTE # (test code=LY#) 0.28 x10 3/uL 1.0-3.8 MONOCYTE # (test code=MO#) 0.54 x10 3/uL 0.1-0.8 EOSINOPHIL # (test code=EO#) 0.01 x10 3/uL 0.0-0.2 BASOPHIL # (test code=BA#) 0.01 x10 3/uL 0.0-0.2 NUCLEATED RBC # (test code=NRBC#) 0.00 x10 3/uL 0.0-0.1 MANUAL DIFF REQUIRED (test code=MDIFF) NO PLT [id number] 07:28:00* Test Item Value Reference Range Comments PLATELET ESTIMATE (test code=PLTEST) THOUSAND ADEQUATE - CT HEAD/BRAIN W/O [id number] 07:15:00 Name: ROHIT MARION [facility] : 1965 Age/S: 53 / M [address] [place] [address] Unit #: [id number] Loc: [facility] [place] [address] Phys: Hakan Gillis SCHOLARSHIP COUNSELOR Acct: [id number] Dis Date: Status: ADM IN PHONE #: [phone] Exam Date: 12/02/2018 0403 FAX #: [phone] Reason: sah EXAMS: CPT CODE: [id number] CT HEAD/BRAIN W/O CONT 26332 CT head without contrast 12/02/2018 HISTORY: Subarachnoid hemorrhage PROCEDURE: Multiple axial images from the skull base to the skull vertex were obtained without contrast. Coronal and sagittal reconstructed images were performed CT imaging performed at this location utilizes radiation dose optimization techniques which include one or more of the following: -Automated exposure control -Adjustment of the mA and/or kV according to patient size -Use of iterative reconstruction technique CT Radiation Dose DLP 1981 mGy-cm Comparison is made to 11/29/2018 FINDINGS: The right basal ganglia hemorrhage is not significantly changed measuring 5.0 x 3.0 x 2.4 cm. Subarachnoid hemorrhage in the right sylvian fissure is slightly decreased. There is new small volume hemorrhage in the dependent portion of the right lateral ventricle on axial image 50 and the atria of the left lateral ventricle on axial image 51. 4 mm of leftward midline shift is not significantly changed. Small volume anterior right frontal subarachnoid hemorrhage is noted. No new infarct is noted. The vasogenic edema around the large right basal ganglia hemorrhage is unchanged. The visualized mastoid air cells are clear. Right nasal septal deviation is noted. There is no air-fluid level in the visualized paranasal sinuses. Distal internal carotid arterial calcifications are present. IMPRESSION: 1. No change in 5.0 cm right basal ganglia hemorrhage with mild surrounding vasogenic edema and 4 mm leftward midline shift. 2. Slight decreased right sylvian fissure subarachnoid hemorrhage. 3. New small volume intraventricular hemorrhage in both lateral ventricles. No hydrocephalus. SL: [id number] at 0715 Reported and signed by: Ariel Granados M.D. PAGE 1 Signed Report (CONTINUED) Name: ROHIT MARION [facility] : 1965 Age/S: 53 / M [address] [place] [address] Unit #: [id number] Loc: [facility] [place] [address] Phys: Elis, SCHOLARSHIP COUNSELOR Acct: [id number] Dis Date: Status: ADM IN PHONE #: [phone] Exam Date: 12/02/2018 040 FAX #: [phone] Reason: sah EXAMS: CPT CODE: [id number] CT HEAD/BRAIN W/O CONT 48160 < Continued> CC: Elis SCHOLARSHIP COUNSELOR; Nat Castaneda; Luciano Muller MD Technologist:RT Darius(R) CTDI: DLP: Trnscb Date/Time: 12/02/2018 (714) [email or web address] Orig Print D/T: S: 12/02/2018 (07) PAGE 2 Signed Report BASIC METABOLIC [id number] 07:14:00* Test Item Value Reference Range Comments SODIUM (test code=NA) 140 mEq/L 134-147 POTASSIUM (test code=K) 5.0 mEq/L 3.4-5.0 CHLORIDE (test code=CL) 107 mEq/L 100-108 CARBON DIOXIDE (test code=CO2) 22 mEq/L 21-33 ANION GAP (test code=GAP) 16 0-20 GLUCOSE (test code=GLU) 309 mg/dL 70-110 BLOOD UREA NITROGEN (test code=BUN) 57 mg/dL 7-18 GLOMERULAR FILTRATION RATE (test code=GFR) 7.4 90-95 Units of measure=ml/min/1.73 m2 CREATININE (test code=CREAT) 7.7 mg/dL 0.6-1.3 CALCIUM (test code=CA) 8.4 mg/dL 8.0-10.5 [id number] 00:59:00* Test Item Value Reference Range Comments SODIUM (test code=NA) 139 mEq/L 134-147 COMMENTS: While on hyperosmolar [id number] 00:34:00* Test Item Value Reference Range Comments GLUBED (test code=GLUBED) 206 MG/DL 70-110 Performed by certified gear milling machine set up operator at [facility] [id number] 18:09:00* Test Item Value Reference Range Comments SODIUM (test code=NA) 140 mEq/L 134-147 COMMENTS: While on hyperosmolar [id number] 18:01:00* Test Item Value Reference Range Comments GLUBED (test code=GLUBED) 199 MG/DL 70-110 Performed by certified gear milling machine set up operator at [facility] COMPREHENSIVE METABOLIC [id number] 13:40:00* Test Item Value Reference Range Comments SODIUM (test code=NA) 137 mEq/L 134-147 POTASSIUM (test code=K) 4.8 mEq/L 3.4-5.0 CHLORIDE (test code=CL) 103 mEq/L 100-108 CARBON DIOXIDE (test code=CO2) 23 mEq/L 21-33 ANION GAP (test code=GAP) 16 0-20 GLUCOSE (test code=GLU) 317 mg/dL 70-110 BLOOD UREA NITROGEN (test code=BUN) 87 mg/dL 7-18 GLOMERULAR FILTRATION RATE (test code=GFR) 5.9 90-95 Units of measure=ml/min/1.73 m2 CREATININE (test code=CREAT) 9.4 mg/dL 0.6-1.3 Previously reported result: 9.4 mg/dLEdited by: LAURA on 12/01/18: 1340: CREAT previously reported as: 9.4 DH mg/dL previous high TOTAL PROTEIN (test code=PROT) 6.9 g/dL 6.4-8.2 ALBUMIN (test code=ALB) 3.30 g/dL 3.4-5.0 CALCIUM (test code=CA) 8.0 mg/dL 8.0-10.5 BILIRUBIN TOTAL (test code=BILT) 0.4 MG/DL <1.5 SGOT/AST (test code=AST) 11 IUnit/L 15-37 SGPT/ALT (test code=ALT) 11 IUnit/L 15-65 ALKALINE PHOSPHATASE TOTAL (test code=ALKP) 139 IUnit/L 20-125 [id number] 12:53:00* Test Item Value Reference Range Comments SODIUM (test code=NA) 134 mEq/L 134-147 COMMENTS: While on hyperosmolar [id number] 12:30:00* Test Item Value Reference Range Comments GLUBED (test code=GLUBED) 224 MG/DL 70-110 Performed by certified gear milling machine set up operator at [facility] ACUTE HEPATITIS [id number] 08:11:00* Test Item Value Reference Range Comments AB HEPATITIS A IGM (test code=HAVMAB) NON REACTIVE INDEX NON REACT. AG HEPATITIS B SURFACE (test code=HBSAG) NON REACTIVE INDEX NonReactive AB HEPATITIS B CORE IGM (test code=HBCMAB) NON REACTIVE INDEX NON REACT. AB HEPATITIS C (test code=HCVAB) NON REACTIVE INDEX NON REACT. COMMENTS: At start of hemodialysisAB HEPATITIS B [id number] 08:11:00* Test Item Value Reference Range Comments AB HEPATITIS B SURFACE (test code=HBSAB) 77.8 mIU/mL Immunity>9.9 Status of Immunity Anti-HBs Level Inconsistent with Immunity 0.0 - 9.9Consistent with Immunity >9.9Performed At: [facility] [address] [id number] Erwin Kolb MD Ph:[phone] COMMENTS: At start of [id number] 06:14:00* Test Item Value Reference Range Comments GLUBED (test code=GLUBED) 298 MG/DL 70-110 Performed by certified gear milling machine set up operator at [facility] PROTHROMBIN [id number] 06:02:00* Test Item Value Reference Range Comments PROTHROMBIN TIME PATIENT (test code=PTP) 12.3 SECONDS 9.3-12.9 INTERNATIONAL NORMAL RATIO (test code=INR) 1.1 0.8-1.2 TARGET INR BY INDICATION Indication INR1. Prophylaxis of venous thrombosis 2.0 - 3.0 (orthopedic surgery), Prophylaxis of venous thrombosis (other than high-risk surgery), Treatment of Deep Vein Thrombosis/Pulmonary Embolism, Prevention of systemic embolism - Tissue heart valves, Acute Myocardial Infarction (to prevent systemic embolism), Valvular heart disease, Atrial Fibrillation, Bileaflet mechanical valve in aortic position.2. Mechanical prosthetic valves (high risk), 2.5 - 3.5 Presence of Lupus Anticoagulant or Antiphospholipid Antibodies, Prevention of systemic embolism - Acute Myocardial Infarction (to prevent recurrent infarct). THROMBOPLASTIN TIME [id number] 06:02:00* Test Item Value Reference Range Comments THROMBOPLASTIN TIME PARTIAL (test code=PTT) 32.3 Seconds 25.0-39.5 Therapeutic Range: 50.4 - 88.3 Seconds Effective 06/01/2018 COMPREHENSIVE METABOLIC [id number] 05:59:00* Test Item Value Reference Range Comments SODIUM (test code=NA) 137 mEq/L 134-147 POTASSIUM (test code=K) 4.8 mEq/L 3.4-5.0 CHLORIDE (test code=CL) 103 mEq/L 100-108 CARBON DIOXIDE (test code=CO2) 23 mEq/L 21-33 ANION GAP (test code=GAP) 16 0-20 GLUCOSE (test code=GLU) 317 mg/dL 70-110 BLOOD UREA NITROGEN (test code=BUN) 87 mg/dL 7-18 GLOMERULAR FILTRATION RATE (test code=GFR) 5.9 90-95 Units of measure=ml/min/1.73 m2 CREATININE (test code=CREAT) 9.4 mg/dL 0.6-1.3 previous high TOTAL PROTEIN (test code=PROT) 6.9 g/dL 6.4-8.2 ALBUMIN (test code=ALB) 3.30 g/dL 3.4-5.0 CALCIUM (test code=CA) 8.0 mg/dL 8.0-10.5 BILIRUBIN TOTAL (test code=BILT) 0.4 MG/DL <1.5 SGOT/AST (test code=AST) 11 IUnit/L 15-37 SGPT/ALT (test code=ALT) 11 IUnit/L 15-65 ALKALINE PHOSPHATASE TOTAL (test code=ALKP) 139 IUnit/L 20-125 CBC W/AUTO [id number] 05:33:00* Test Item Value Reference Range Comments WHITE BLOOD CELL (test code=WBC) 6.62 x10 3/uL 4.5-11.0 RED BLOOD CELL (test code=RBC) 3.12 x10 6/uL 4.00-5.60 HEMOGLOBIN (test code=HGB) 10.1 g/dL 12.5-16.9 HEMATOCRIT (test code=HCT) 32.7 % 37.5-50.7 MEAN CELL VOLUME (test code=MCV) 104.8 fL 81.0-99.0 MEAN CELL HGB (test code=MCH) 32.4 pg 27.0-33.0 MEAN CELL HGB CONCETRATION (test code=MCHC) 30.9 g/dL 33.0-37.0 RED CELL DISTRIBUTION WIDTH CV (test code=RDW) 15.5 % 11.5-14.5 RED CELL DISTRIBUTION WIDTH SD (test code=RDW-SD) 59.4 fL 37.0-54.0 PLATELET COUNT (test code=PLT) 106 x10 3/uL 150-400 MEAN PLATELET VOLUME (test code=MPV) 11.4 fL 7.0-9.0 NEUTROPHIL % (test code=NT%) 74.1 % 56.0-77.0 IMMATURE GRANULOCYTE % (test code=IG%) 0.2 % 0.0-2.0 LYMPHOCYTE % (test code=LY%) 8.0 % 14.0-32.0 MONOCYTE % (test code=MO%) 11.2 % 4.8-9.0 EOSINOPHIL % (test code=EO%) 6.0 % 0.3-3.7 BASOPHIL % (test code=BA%) 0.5 % 0.0-2.0 NUCLEATED RBC % (test code=NRBC%) 0.0 % 0-0 NEUTROPHIL # (test code=NT#) 4.91 x10 3/uL 2.0-7.6 IMMATURE GRANULOCYTE # (test code=IG#) 0.01 x10 3/uL 0.00-0.03 LYMPHOCYTE # (test code=LY#) 0.53 x10 3/uL 1.0-3.8 MONOCYTE # (test code=MO#) 0.74 x10 3/uL 0.1-0.8 EOSINOPHIL # (test code=EO#) 0.40 x10 3/uL 0.0-0.2 BASOPHIL # (test code=BA#) 0.03 x10 3/uL 0.0-0.2 NUCLEATED RBC # (test code=NRBC#) 0.00 x10 3/uL 0.0-0.1 MANUAL DIFF REQUIRED (test code=MDIFF) NO [id number] 01:21:00* Test Item Value Reference Range Comments SODIUM (test code=NA) 134 mEq/L 134-147 COMMENTS: While on hyperosmolar [id number] 01:04:00* Test Item Value Reference Range Comments GLUBED (test code=GLUBED) 323 MG/DL 70-110 Performed by certified gear milling machine set up operator at [facility] [id number] 18:41:00* Test Item Value Reference Range Comments SODIUM (test code=NA) 137 mEq/L 134-147 COMMENTS: While on hyperosmolar [id number] 18:24:00* Test Item Value Reference Range Comments GLUBED (test code=GLUBED) 188 MG/DL 70-110 Performed by certified gear milling machine set up operator at [facility] [id number] 11:34:00* Test Item Value Reference Range Comments GLUBED (test code=GLUBED) 181 MG/DL 70-110 Performed by certified gear milling machine set up operator at [facility] [id number] 07:36:00* Test Item Value Reference Range Comments GLUBED (test code=GLUBED) 326 MG/DL 70-110 Performed by certified gear milling machine set up operator at [facility] [id number] 06:17:00* Test Item Value Reference Range Comments GLUBED (test code=GLUBED) 362 MG/DL 70-110 Performed by certified gear milling machine set up operator at [facility] BASIC METABOLIC [id number] 05:59:00* Test Item Value Reference Range Comments SODIUM (test code=NA) 133 mEq/L 134-147 POTASSIUM (test code=K) 4.9 mEq/L 3.4-5.0 CHLORIDE (test code=CL) 99 mEq/L 100-108 CARBON DIOXIDE (test code=CO2) 28 mEq/L 21-33 ANION GAP (test code=GAP) 11 0-20 GLUCOSE (test code=GLU) 333 mg/dL 70-110 BLOOD UREA NITROGEN (test code=BUN) 50 mg/dL 7-18 GLOMERULAR FILTRATION RATE (test code=GFR) 7.7 90-95 Units of measure=ml/min/1.73 m2 CREATININE (test code=CREAT) 7.4 mg/dL 0.6-1.3 CALCIUM (test code=CA) 8.5 mg/dL 8.0-10.5 CBC W/AUTO [id number] 05:31:00* Test Item Value Reference Range Comments WHITE BLOOD CELL (test code=WBC) 6.58 x10 3/uL 4.5-11.0 RED BLOOD CELL (test code=RBC) 3.24 x10 6/uL 4.00-5.60 HEMOGLOBIN (test code=HGB) 10.4 g/dL 12.5-16.9 HEMATOCRIT (test code=HCT) 33.7 % 37.5-50.7 MEAN CELL VOLUME (test code=MCV) 104.0 fL 81.0-99.0 MEAN CELL HGB (test code=MCH) 32.1 pg 27.0-33.0 MEAN CELL HGB CONCETRATION (test code=MCHC) 30.9 g/dL 33.0-37.0 RED CELL DISTRIBUTION WIDTH CV (test code=RDW) 15.9 % 11.5-14.5 RED CELL DISTRIBUTION WIDTH SD (test code=RDW-SD) 59.6 fL 37.0-54.0 PLATELET COUNT (test code=PLT) 121 x10 3/uL 150-400 MEAN PLATELET VOLUME (test code=MPV) 11.8 fL 7.0-9.0 NEUTROPHIL % (test code=NT%) 75.5 % 56.0-77.0 IMMATURE GRANULOCYTE % (test code=IG%) 0.2 % 0.0-2.0 LYMPHOCYTE % (test code=LY%) 6.5 % 14.0-32.0 MONOCYTE % (test code=MO%) 12.3 % 4.8-9.0 EOSINOPHIL % (test code=EO%) 4.7 % 0.3-3.7 BASOPHIL % (test code=BA%) 0.8 % 0.0-2.0 NUCLEATED RBC % (test code=NRBC%) 0.0 % 0-0 NEUTROPHIL # (test code=NT#) 4.97 x10 3/uL 2.0-7.6 IMMATURE GRANULOCYTE # (test code=IG#) 0.01 x10 3/uL 0.00-0.03 LYMPHOCYTE # (test code=LY#) 0.43 x10 3/uL 1.0-3.8 MONOCYTE # (test code=MO#) 0.81 x10 3/uL 0.1-0.8 EOSINOPHIL # (test code=EO#) 0.31 x10 3/uL 0.0-0.2 BASOPHIL # (test code=BA#) 0.05 x10 3/uL 0.0-0.2 NUCLEATED RBC # (test code=NRBC#) 0.00 x10 3/uL 0.0-0.1 MANUAL DIFF REQUIRED (test code=MDIFF) NO [id number] 00:32:00* Test Item Value Reference Range Comments GLUBED (test code=GLUBED) 269 MG/DL 70-110 Performed by certified gear milling machine set up operator at [facility] ACUTE HEPATITIS [id number] 18:19:00* Test Item Value Reference Range Comments AB HEPATITIS A IGM (test code=HAVMAB) NON REACTIVE INDEX NON REACT. AG HEPATITIS B SURFACE (test code=HBSAG) NON REACTIVE INDEX NonReactive AB HEPATITIS B CORE IGM (test code=HBCMAB) NON REACTIVE INDEX NON REACT. AB HEPATITIS C (test code=HCVAB) NON REACTIVE INDEX NON REACT. COMMENTS: At start of hemodialysisAB HEPATITIS B [id number] 18:19:00* Test Item Value Reference Range Comments AB HEPATITIS B SURFACE (test code=HBSAB) COMMENTS: At start of hemodialysisACUTE HEPATITIS [id number] 17:52:00* Test Item Value Reference Range Comments AB HEPATITIS A IGM (test code=HAVMAB) INDEX NON REACT. AG HEPATITIS B SURFACE (test code=HBSAG) NON REACTIVE INDEX NonReactive AB HEPATITIS B CORE IGM (test code=HBCMAB) INDEX NON REACT. AB HEPATITIS C (test code=HCVAB) INDEX NON REACT. COMMENTS: At start of hemodialysisAB HEPATITIS B [id number] 17:52:00* Test Item Value Reference Range Comments AB HEPATITIS B SURFACE (test code=HBSAB) COMMENTS: At start of [id number] 17:36:00* Test Item Value Reference Range Comments GLUBED (test code=GLUBED) 162 MG/DL 70-110 Performed by certified gear milling machine set up operator at [facility] [id number] 12:46:00* Test Item Value Reference Range Comments GLUBED (test code=GLUBED) 199 MG/DL 70-110 Performed by certified gear milling machine set up operator at [facility] [id number] 11:58:00* Test Item Value Reference Range Comments GLUBED (test code=GLUBED) 144 MG/DL 70-110 Performed by certified gear milling machine set up operator at [facility] - XR CHEST 1 [id number] 09:50:00 FAX: Nat Mo MD [phone] [place]: St: [facility] FAX: Luciano Muller MD [phone] FAX: Loren Lizarraga DO [phone] Name: ROHIT MARION [facility] : 1965 Age/S: 53/M [address] [place] [address] Unit #: [id number] Loc: [address] [address] Phys: Loren Estrada DO Acct: [id number] Dis Date: Status: ADM IN PH ONE #: [phone] Exam Date: 11/29/2018 0950 FAX #: [phone] Reason: PRE PROCEDURE EXAMS: CPT CODE: [id number] XR CHEST 1 V [id number] CHEST RADIOGRA PH ONE VIEW 11/29/2018 AT 0811 HOURS. CLINICAL HISTORY: Preprocedu re. Subarachnoid hemorrhage. COMPARISON STUDIES: Chest one view fr om yesterday at 1245 hours. FINDINGS: One view of the chest was obtained. Enlarged cardiac silhouette with prior coronary stenting and triple lead AICD battery. Mild central pulmonary vascular congestion with no edema or consolidation. Ill-defined bibasilar subsegmental atelectasi s. No pleural effusion. No destructive bone lesions. IMPR ESSION: 1. Mild central pulmonary vascular congestion with no edema or consolidation. 2. Enlarged cardiac silhouette with coronary stent ing and AICD battery. SL: ER-H Elec tronically Signed by Cecilia Diehl on 1 at 0950 Reported and signed by: Archie Diehl M.D. CC: Nat Castaneda; Luciano Muller MD; Loren Estrada DO Technologist: Ines Cormier RT(R) Trnscrd Date/Time/By: 11/29/2018 (0950) : By: [email or web address] Orig Print D/T: S: 11/29/2018 (0953) PAGE 1 Signed Report PROTHROMBIN [id number] 08:27:00* Test Item Value Reference Range Comments PROTHROMBIN TIME PATIENT (test code=PTP) 12.9 SECONDS 9.3-12.9 INTERNATIONAL NORMAL RATIO (test code=INR) 1.2 0.8-1.2 TARGET INR BY INDICATION Indication INR1. Prophylaxis of venous thrombosis 2.0 - 3.0 (orthopedic surgery), Prophylaxis of venous thrombosis (other than high-risk surgery), Treatment of Deep Vein Thrombosis/Pulmonary Embolism, Prevention of systemic embolism - Tissue heart valves, Acute Myocardial Infarction (to prevent systemic embolism), Valvular heart disease, Atrial Fibrillation, Bileaflet mechanical valve in aortic position.2. Mechanical prosthetic valves (high risk), 2.5 - 3.5 Presence of Lupus Anticoagulant or Antiphospholipid Antibodies, Prevention of systemic embolism - Acute Myocardial Infarction (to prevent recurrent infarct). [id number] 06:09:00* Test Item Value Reference Range Comments GLUBED (test code=GLUBED) 497 MG/DL 70-110 Performed by certified gear milling machine set up operator at [facility] [id number] 06:09:00* Test Item Value Reference Range Comments GLUBED (test code=GLUBED) 490 MG/DL 70-110 Performed by certified gear milling machine set up operator at [facility] [id number] 06:07:00* Test Item Value Reference Range Comments GLUBED (test code=GLUBED) 369 MG/DL 70-110 Performed by certified gear milling machine set up operator at [facility] BASIC METABOLIC [id number] 06:02:00* Test Item Value Reference Range Comments SODIUM (test code=NA) 135 mEq/L 134-147 POTASSIUM (test code=K) 5.2 mEq/L 3.4-5.0 CHLORIDE (test code=CL) 98 mEq/L 100-108 CARBON DIOXIDE (test code=CO2) 28 mEq/L 21-33 ANION GAP (test code=GAP) 14 0-20 GLUCOSE (test code=GLU) 205 mg/dL 70-110 BLOOD UREA NITROGEN (test code=BUN) 94 mg/dL 7-18 GLOMERULAR FILTRATION RATE (test code=GFR) 5.6 90-95 Units of measure=ml/min/1.73 m2 CREATININE (test code=CREAT) 9.8 mg/dL 0.6-1.3 CALCIUM (test code=CA) 8.3 mg/dL 8.0-10.5 - CT HEAD/BRAIN W/O [id number] 05:55:00 Name: ROHIT MARION [facility] : 1965 Age/S: 53 / M [address] [place] [address] Blvd Unit #: [id number] Loc: [place] [address] Phys: Elis,June [employer]OLAR[employer] COUNSELOR Acct: [id number] Dis Date: Status: ADM IN PHONE #: [phone] Exam Date: 11/29/2018451 FAX #: [phone] Reason: sah EXAMS: CPT CODE: [id number] CT HEAD/BRAIN W/O CONT 83110 EXAM: CT, CT HEAD/BRAIN W/O CONTRAST: 11/29/2018, 0447 hours HISTORY: sah COMPARISON: CT angiogram head dated 11/28/2018, [address] head dated 11/28/2018, 1139 hours. TECHNIQUE: CT images were obtained from the foramen magnum to the vertex without the use of intravenous contrast on a multidetector CT. CT imaging was performed with exposure control parameters to reduce radiation dose. Coronal and sagittal reconstructions were obtained. CT radiation dose DLP: 993.60 mGy-cm FINDINGS: Beam hardening artifact limits the optimal evaluation of base of brain and posterior fossa. BRAIN PARENCHYMA: Again identified is intra-axial hemorrhage in the right orbitofrontal region measuring 2.6 x 2.2x 2.3 cm ( AP x TR x CC), similar in size as compared to the prior study with interval increase attenuation. There is increa sing edema in the right frontal lobe with partial effacement of the right lateral ventricle and 3 to 4 mm right to left midline shift. Stable sligh t shift of the interhemispheric fissure to the left. Interval new intra -axial hemorrhage in the right temporal lobe versus accumulating right temporal area subarachnoid hemorrhage. Follow-up noncontrast CT of the head can be obtained for further assessment. Subarachnoid hemorrhage along the right frontal temporal region extending into the sylvian fissure and suprasellar cisterns as seen previously,, grossly stable, however limited limited for evaluation due to recent contrast injection. Intracra nial vascular calcification seen. ORBITS, MASTOIDS AND PARANASAL S INUSES: The visualized orbits are unremarkable. The visualized paranasal s inuses are unremarkable. The mastoid air cells are clear. SKULL: There are no osseous abnormalities. If there is furt her concern for intracranial pathology or acute stroke, MRI of the brain m ay be performed for complete assessment. PAGE 1 Signed Report (CONTINUED) Name: ROHIT MARION [facility] : 1965 Age/S: 53 / M [address] [place] [address] Blvd Unit #: [id number] Loc: [place] [address] Phys: Hakan Gillis NP Acct: [id number] Dis Date: Status: ADM IN PHONE #: [phone] Exam Date: 11/29 045 FAX #: [phone] Reason: sah EXAMS: CPT CODE: [id number] CT HEAD/BRAIN W/O CONT 70 450 <Continued> IMPRESSION: 1. Recently injected contrast limiting the evaluation of the intracranial hemorrhage. 2. Right frontal orbital region intra-axial hemorrhage slightly dense in appearance, stable in size with increase edema since prior study. 3 to 4 mm right to left midline shift and partial effacement of the frontal horn of the left lateral ventricle. Interval new intra-axial hemorrhage in the right temporal lobe versus accumulating right temporal area subarachnoid hemorrhage. Follow-up noncontrast CT of the head can be obtained for further assessment. 3. Right frontotemporal region subarachnoid hemorrhage extending into sylvian fissure and suprasellar cistern. SL: JSAPRILD-H at 0555 Reported and signed by: Solis Ernst M.D. CC: Hakan Gillis NP; Nat Castaneda; Luciano Muller MD Technologist:RT Bowen(R)(CT) CTDI: DLP: Trnscb Date/Time: 11/29/2018 (0555) [email or web address] Orig Print D/T: S: 11/29/2018 (0558) PAGE 2 Signed Report THROMBOPLASTIN TIME [id number] 05:14:00* Test Item Value Reference Range Comments THROMBOPLASTIN TIME PARTIAL (test code=PTT) 34.6 Seconds 25.0-39.5 Therapeutic Range: 50.4 - 88.3 Seconds Effective 06/01/2018 CBC W/AUTO [id number] 04:49:00* Test Item Value Reference Range Comments WHITE BLOOD CELL (test code=WBC) 6.03 x10 3/uL 4.5-11.0 RED BLOOD CELL (test code=RBC) 3.14 x10 6/uL 4.00-5.60 HEMOGLOBIN (test code=HGB) 10.1 g/dL 12.5-16.9 HEMATOCRIT (test code=HCT) 32.2 % 37.5-50.7 MEAN CELL VOLUME (test code=MCV) 102.5 fL 81.0-99.0 MEAN CELL HGB (test code=MCH) 32.2 pg 27.0-33.0 MEAN CELL HGB CONCETRATION (test code=MCHC) 31.4 g/dL 33.0-37.0 RED CELL DISTRIBUTION WIDTH CV (test code=RDW) 15.6 % 11.5-14.5 RED CELL DISTRIBUTION WIDTH SD (test code=RDW-SD) 57.0 fL 37.0-54.0 PLATELET COUNT (test code=PLT) 118 x10 3/uL 150-400 MEAN PLATELET VOLUME (test code=MPV) 11.3 fL 7.0-9.0 NEUTROPHIL % (test code=NT%) 75.4 % 56.0-77.0 IMMATURE GRANULOCYTE % (test code=IG%) 0.2 % 0.0-2.0 LYMPHOCYTE % (test code=LY%) 8.8 % 14.0-32.0 MONOCYTE % (test code=MO%) 13.8 % 4.8-9.0 EOSINOPHIL % (test code=EO%) 1.3 % 0.3-3.7 BASOPHIL % (test code=BA%) 0.5 % 0.0-2.0 NUCLEATED RBC % (test code=NRBC%) 0.0 % 0-0 NEUTROPHIL # (test code=NT#) 4.55 x10 3/uL 2.0-7.6 IMMATURE GRANULOCYTE # (test code=IG#) 0.01 x10 3/uL 0.00-0.03 LYMPHOCYTE # (test code=LY#) 0.53 x10 3/uL 1.0-3.8 MONOCYTE # (test code=MO#) 0.83 x10 3/uL 0.1-0.8 EOSINOPHIL # (test code=EO#) 0.08 x10 3/uL 0.0-0.2 BASOPHIL # (test code=BA#) 0.03 x10 3/uL 0.0-0.2 NUCLEATED RBC # (test code=NRBC#) 0.00 x10 3/uL 0.0-0.1 MANUAL DIFF REQUIRED (test code=MDIFF) NO [id number] 02:49:00* Test Item Value Reference Range Comments GLUBED (test code=GLUBED) 260 MG/DL 70-110 Performed by certified gear milling machine set up operator at [facility] [id number] 01:56:00* Test Item Value Reference Range Comments TROPONIN-I (test code=TROPI) 0.058 ng/mL 0.000-0.045 Negative: <=0.045 Positive: >=0.046 Correlation with serial results, other cardiac markers andclinical findings is necessary to determine the clinicalsignificance of this result. Results using different methodologies should not be comparedto one another as quantitative results may vary by method. VENOUS BLOOD [id number] 01:05:00* Test Item Value Reference Range Comments VENOUS BLOOD GAS PH (test code=PHV) 7.44 7.33-7.45 VENOUS BLOOD GAS PCO2 (test code=PCO2V) 45 mmHg 43-47 VENOUS BLOOD GAS PO2 (test code=PO2V) 53 mmHg 10-50 VBG HCO3 (test code=HCO3V) 30.6 mmol/L 22-27 VBG BASE EXCESS (test code=POORNIMA) 6.0 mmol/L -4.0-4.0 VENOUS BLOOD GAS O2 SAT. (test code=O2SATV) 89 % 60-80 VENOUS BLOOD GAS DELIVERY (test code=DELV) Room Air Performed by certified gear milling machine set up operator at [facility] VENOUS BLOOD GAS TEMP (test code=TEMPV) 98.0 F VENOUS BLOOD GAS SITE (test code=SITEV) Other VENOUS TCO2 (test code=TCO2V) 32 BASIC METABOLIC [id number] 00:24:00* Test Item Value Reference Range Comments SODIUM (test code=NA) 132 mEq/L 134-147 POTASSIUM (test code=K) 5.3 mEq/L 3.4-5.0 CHLORIDE (test code=CL) 95 mEq/L 100-108 CARBON DIOXIDE (test code=CO2) 27 mEq/L 21-33 ANION GAP (test code=GAP) 15 0-20 GLUCOSE (test code=GLU) 529 mg/dL 70-110 BLOOD UREA NITROGEN (test code=BUN) 92 mg/dL 7-18 GLOMERULAR FILTRATION RATE (test code=GFR) 5.7 90-95 Units of measure=ml/min/1.73 m2 CREATININE (test code=CREAT) 9.7 mg/dL 0.6-1.3 CALCIUM (test code=CA) 8.1 mg/dL 8.0-10.5 [id number] 00:24:00* Test Item Value Reference Range Comments PHOSPHOROUS (test code=PHOS) 3.5 MG/DL 2.5-4.9 [id number] 00:24:00* Test Item Value Reference Range Comments MAGNESIUM (test code=MAG) 2.80 mg/dL 1.8-2.4 CBC W/AUTO [id number] 00:04:00* Test Item Value Reference Range Comments WHITE BLOOD CELL (test code=WBC) 6.67 x10 3/uL 4.5-11.0 RED BLOOD CELL (test code=RBC) 3.12 x10 6/uL 4.00-5.60 HEMOGLOBIN (test code=HGB) 10.1 g/dL 12.5-16.9 HEMATOCRIT (test code=HCT) 32.5 % 37.5-50.7 MEAN CELL VOLUME (test code=MCV) 104.2 fL 81.0-99.0 MEAN CELL HGB (test code=MCH) 32.4 pg 27.0-33.0 MEAN CELL HGB CONCETRATION (test code=MCHC) 31.1 g/dL 33.0-37.0 RED CELL DISTRIBUTION WIDTH CV (test code=RDW) 15.5 % 11.5-14.5 RED CELL DISTRIBUTION WIDTH SD (test code=RDW-SD) 58.4 fL 37.0-54.0 PLATELET COUNT (test code=PLT) 101 x10 3/uL 150-400 MEAN PLATELET VOLUME (test code=MPV) 11.4 fL 7.0-9.0 NEUTROPHIL % (test code=NT%) 87.7 % 56.0-77.0 IMMATURE GRANULOCYTE % (test code=IG%) 0.4 % 0.0-2.0 LYMPHOCYTE % (test code=LY%) 3.4 % 14.0-32.0 MONOCYTE % (test code=MO%) 7.9 % 4.8-9.0 EOSINOPHIL % (test code=EO%) 0.3 % 0.3-3.7 BASOPHIL % (test code=BA%) 0.3 % 0.0-2.0 NUCLEATED RBC % (test code=NRBC%) 0.0 % 0-0 NEUTROPHIL # (test code=NT#) 5.84 x10 3/uL 2.0-7.6 IMMATURE GRANULOCYTE # (test code=IG#) 0.03 x10 3/uL 0.00-0.03 LYMPHOCYTE # (test code=LY#) 0.23 x10 3/uL 1.0-3.8 MONOCYTE # (test code=MO#) 0.53 x10 3/uL 0.1-0.8 EOSINOPHIL # (test code=EO#) 0.02 x10 3/uL 0.0-0.2 BASOPHIL # (test code=BA#) 0.02 x10 3/uL 0.0-0.2 NUCLEATED RBC # (test code=NRBC#) 0.00 x10 3/uL 0.0-0.1 MANUAL DIFF REQUIRED (test code=MDIFF) NO [id number] 21:43:00* Test Item Value Reference Range Comments TROPONIN-I (test code=TROPI) 0.045 ng/mL 0.000-0.045 Negative: <=0.045 Positive: >=0.046 Correlation with serial results, other cardiac markers andclinical findings is necessary to determine the clinicalsignificance of this result. Results using different methodologies should not be comparedto one another as quantitative results may vary by method. [id number] 21:25:00* Test Item Value Reference Range Comments GLUBED (test code=GLUBED) 428 MG/DL 70-110 Performed by certified gear milling machine set up operator at [facility] BASIC METABOLIC [id number] 20:31:00* Test Item Value Reference Range Comments SODIUM (test code=NA) 133 mEq/L 134-147 POTASSIUM (test code=K) 5.2 mEq/L 3.4-5.0 CHLORIDE (test code=CL) 97 mEq/L 100-108 CARBON DIOXIDE (test code=CO2) 25 mEq/L 21-33 ANION GAP (test code=GAP) 16 0-20 GLUCOSE (test code=GLU) 323 mg/dL 70-110 BLOOD UREA NITROGEN (test code=BUN) 73 mg/dL 7-18 GLOMERULAR FILTRATION RATE (test code=GFR) 6.4 90-95 Units of measure=ml/min/1.73 m2 CREATININE (test code=CREAT) 8.7 mg/dL 0.6-1.3 CALCIUM (test code=CA) 8.4 mg/dL 8.0-10.5 LIPID PROFILE (CORONARY RISK)[id number] 20:31:00* Test Item Value Reference Range Comments TRIGLYCERIDES (test code=TRIG) 53 mg/dL 40-150 CHOLESTEROL (test code=CHOL) 108 mg/dL <200 CHOLESTEROL/HDL RATIO (test code=CHOLHDL) 2.00 RATIO 3.43-4.97 RISK ASSOCIATED WITH CHOL/HDL RATIOS: RISK MALE FEMALE1/2 AVERAGE 3.43 3.27AVERAGE 4.97 4.442X AVERAGE 9.55 7.053X AVERAGE 23.39 11.04 NOTE THAT THE REFERENCE VALUE IS RELATEDTO RISK LEVELS RECOMMENDED BY THE NATL.HEART, LUNG, AND BLOOD INST. HDL CHOLESTEROL (test code=HDL) 54.0 mg/dL 32-72 LIPOPROTEIN LDL (test code=LDL) 55 mg/dL 0-100 <100 [id number] NEAR OPTIMAL/ABOVE [id number] [id number] HIGH>BE=182 VERY HIGH*Guidelines provided by the National Cholesterol EducationProgram Adult Treatment Panel III HEPATIC FUNCTION [id number] 20:31:00* Test Item Value Reference Range Comments TOTAL PROTEIN (test code=PROT) 7.1 g/dL 6.4-8.2 ALBUMIN (test code=ALB) 3.70 g/dL 3.4-5.0 BILIRUBIN TOTAL (test code=BILT) 0.6 MG/DL <1.5 BILIRUBIN DIRECT (test code=BILD) 0.20 MG/DL 0.0-0.30 BILIRUBIN INDIRECT (test code=BILIND) 0.40 MG/DL SGOT/AST (test code=AST) 16 IUnit/L 15-37 SGPT/ALT (test code=ALT) 15 IUnit/L 15-65 ALKALINE PHOSPHATASE TOTAL (test code=ALKP) 167 IUnit/L 20-125 [id number] 20:31:00* Test Item Value Reference Range Comments PHOSPHOROUS (test code=PHOS) 3.7 MG/DL 2.5-4.9 [id number] 20:31:00* Test Item Value Reference Range Comments MAGNESIUM (test code=MAG) 2.80 mg/dL 1.8-2.4 THYROID STIMULATING [id number] 20:31:00* Test Item Value Reference Range Comments THYROID STIMULATING HORMONE (test code=TSH) 2.56 0.42-5.47 Results in brandyn-International Units/mL CALCIUM [id number] 20:31:00* Test Item Value Reference Range Comments CALCIUM IONIZED (test code=MARVA) 1.06 MMOL/L 1.12-1.32 HGBA1C%2018-11-28 20:17:00* Test Item Value Reference Range Comments HGBA1C% (test code=HGBA1C%) 5.6 %A1C 4.8-6.0 CBC W/AUTO [id number] 20:09:00* Test Item Value Reference Range Comments WHITE BLOOD CELL (test code=WBC) 9.11 x10 3/uL 4.5-11.0 RED BLOOD CELL (test code=RBC) 3.45 x10 6/uL 4.00-5.60 HEMOGLOBIN (test code=HGB) 11.1 g/dL 12.5-16.9 HEMATOCRIT (test code=HCT) 36.0 % 37.5-50.7 MEAN CELL VOLUME (test code=MCV) 104.3 fL 81.0-99.0 MEAN CELL HGB (test code=MCH) 32.2 pg 27.0-33.0 MEAN CELL HGB CONCETRATION (test code=MCHC) 30.8 g/dL 33.0-37.0 RED CELL DISTRIBUTION WIDTH CV (test code=RDW) 15.6 % 11.5-14.5 RED CELL DISTRIBUTION WIDTH SD (test code=RDW-SD) 58.8 fL 37.0-54.0 PLATELET COUNT (test code=PLT) 122 x10 3/uL 150-400 MEAN PLATELET VOLUME (test code=MPV) 11.8 fL 7.0-9.0 NEUTROPHIL % (test code=NT%) 86.6 % 56.0-77.0 IMMATURE GRANULOCYTE % (test code=IG%) 0.3 % 0.0-2.0 LYMPHOCYTE % (test code=LY%) 4.0 % 14.0-32.0 MONOCYTE % (test code=MO%) 8.6 % 4.8-9.0 EOSINOPHIL % (test code=EO%) 0.2 % 0.3-3.7 BASOPHIL % (test code=BA%) 0.3 % 0.0-2.0 NUCLEATED RBC % (test code=NRBC%) 0.0 % 0-0 NEUTROPHIL # (test code=NT#) 7.89 x10 3/uL 2.0-7.6 IMMATURE GRANULOCYTE # (test code=IG#) 0.03 x10 3/uL 0.00-0.03 LYMPHOCYTE # (test code=LY#) 0.36 x10 3/uL 1.0-3.8 MONOCYTE # (test code=MO#) 0.78 x10 3/uL 0.1-0.8 EOSINOPHIL # (test code=EO#) 0.02 x10 3/uL 0.0-0.2 BASOPHIL # (test code=BA#) 0.03 x10 3/uL 0.0-0.2 NUCLEATED RBC # (test code=NRBC#) 0.00 x10 3/uL 0.0-0.1 MANUAL DIFF REQUIRED (test code=MDIFF) NO PLT [id number] 20:09:00* Test Item Value Reference Range Comments PLATELET ESTIMATE (test code=PLTEST) 144-180 THOUSAND ADEQUATE PLATELET MORPHOLOGY (test code=PLTMORPH) NORMAL BASIC METABOLIC [id number] 20:05:00* Test Item Value Reference Range Comments SODIUM (test code=NA) 133 mEq/L 134-147 POTASSIUM (test code=K) 5.2 mEq/L 3.4-5.0 CHLORIDE (test code=CL) 97 mEq/L 100-108 CARBON DIOXIDE (test code=CO2) 25 mEq/L 21-33 ANION GAP (test code=GAP) 16 0-20 GLUCOSE (test code=GLU) 323 mg/dL 70-110 BLOOD UREA NITROGEN (test code=BUN) 73 mg/dL 7-18 GLOMERULAR FILTRATION RATE (test code=GFR) 90-95 CREATININE (test code=CREAT) mg/dL 0.6-1.3 CALCIUM (test code=CA) 8.4 mg/dL 8.0-10.5 LIPID PROFILE (CORONARY RISK)2018-11-28 20:05:00* Test Item Value Reference Range Comments TRIGLYCERIDES (test code=TRIG) mg/dL 40-150 CHOLESTEROL (test code=CHOL) mg/dL <200 CHOLESTEROL/HDL RATIO (test code=CHOLHDL) RATIO 3.43-4.97 HDL CHOLESTEROL (test code=HDL) mg/dL 32-72 LIPOPROTEIN LDL (test code=LDL) mg/dL 0-100 HEPATIC FUNCTION [id number] 20:05:00* Test Item Value Reference Range Comments TOTAL PROTEIN (test code=PROT) g/dL 6.4-8.2 ALBUMIN (test code=ALB) g/dL 3.4-5.0 BILIRUBIN TOTAL (test code=BILT) MG/DL <1.5 BILIRUBIN DIRECT (test code=BILD) MG/DL 0.0-0.30 SGOT/AST (test code=AST) IUnit/L 15-37 SGPT/ALT (test code=ALT) IUnit/L 15-65 ALKALINE PHOSPHATASE TOTAL (test code=ALKP) IUnit/L 20-125 [id number] 20:05:00* Test Item Value Reference Range Comments PHOSPHOROUS (test code=PHOS) MG/DL 2.5-4.9 [id number] 20:05:00* Test Item Value Reference Range Comments MAGNESIUM (test code=MAG) mg/dL 1.8-2.4 THYROID STIMULATING [id number] 20:05:00* Test Item Value Reference Range Comments THYROID STIMULATING HORMONE (test code=TSH) 0.42-5.47 CALCIUM [id number] 20:05:00* Test Item Value Reference Range Comments CALCIUM IONIZED (test code=MARVA) 1.06 MMOL/L 1.12-1.32 BASIC METABOLIC [id number] 20:01:00* Test Item Value Reference Range Comments SODIUM (test code=NA) mEq/L 134-147 POTASSIUM (test code=K) mEq/L 3.4-5.0 CHLORIDE (test code=CL) mEq/L 100-108 CARBON DIOXIDE (test code=CO2) mEq/L 21-33 ANION GAP (test code=GAP) 0-20 GLUCOSE (test code=GLU) mg/dL 70-110 BLOOD UREA NITROGEN (test code=BUN) mg/dL 7-18 GLOMERULAR FILTRATION RATE (test code=GFR) 90-95 CREATININE (test code=CREAT) mg/dL 0.6-1.3 CALCIUM (test code=CA) mg/dL 8.0-10.5 LIPID PROFILE (CORONARY RISK)2018-11-28 20:01:00* Test Item Value Reference Range Comments TRIGLYCERIDES (test code=TRIG) mg/dL 40-150 CHOLESTEROL (test code=CHOL) mg/dL <200 CHOLESTEROL/HDL RATIO (test code=CHOLHDL) RATIO 3.43-4.97 HDL CHOLESTEROL (test code=HDL) mg/dL 32-72 LIPOPROTEIN LDL (test code=LDL) mg/dL 0-100 HEPATIC FUNCTION [id number] 20:01:00* Test Item Value Reference Range Comments TOTAL PROTEIN (test code=PROT) g/dL 6.4-8.2 ALBUMIN (test code=ALB) g/dL 3.4-5.0 BILIRUBIN TOTAL (test code=BILT) MG/DL <1.5 BILIRUBIN DIRECT (test code=BILD) MG/DL 0.0-0.30 SGOT/AST (test code=AST) IUnit/L 15-37 SGPT/ALT (test code=ALT) IUnit/L 15-65 ALKALINE PHOSPHATASE TOTAL (test code=ALKP) IUnit/L 20-125 [id number] 20:01:00* Test Item Value Reference Range Comments PHOSPHOROUS (test code=PHOS) MG/DL 2.5-4.9 [id number] 20:01:00* Test Item Value Reference Range Comments MAGNESIUM (test code=MAG) mg/dL 1.8-2.4 THYROID STIMULATING [id number] 20:01:00* Test Item Value Reference Range Comments THYROID STIMULATING HORMONE (test code=TSH) 0.42-5.47 CALCIUM [id number] 20:01:00* Test Item Value Reference Range Comments CALCIUM IONIZED (test code=MARVA) 1.06 MMOL/L 1.12-1.32 CBC W/AUTO [id number] 19:47:00* Test Item Value Reference Range Comments WHITE BLOOD CELL (test code=WBC) 9.11 x10 3/uL 4.5-11.0 RED BLOOD CELL (test code=RBC) 3.45 x10 6/uL 4.00-5.60 HEMOGLOBIN (test code=HGB) 11.1 g/dL 12.5-16.9 HEMATOCRIT (test code=HCT) 36.0 % 37.5-50.7 MEAN CELL VOLUME (test code=MCV) 104.3 fL 81.0-99.0 MEAN CELL HGB (test code=MCH) 32.2 pg 27.0-33.0 MEAN CELL HGB CONCETRATION (test code=MCHC) 30.8 g/dL 33.0-37.0 RED CELL DISTRIBUTION WIDTH CV (test code=RDW) 15.6 % 11.5-14.5 RED CELL DISTRIBUTION WIDTH SD (test code=RDW-SD) 58.8 fL 37.0-54.0 PLATELET COUNT (test code=PLT) 122 x10 3/uL 150-400 MEAN PLATELET VOLUME (test code=MPV) 11.8 fL 7.0-9.0 NEUTROPHIL % (test code=NT%) 86.6 % 56.0-77.0 IMMATURE GRANULOCYTE % (test code=IG%) 0.3 % 0.0-2.0 LYMPHOCYTE % (test code=LY%) 4.0 % 14.0-32.0 MONOCYTE % (test code=MO%) 8.6 % 4.8-9.0 EOSINOPHIL % (test code=EO%) 0.2 % 0.3-3.7 BASOPHIL % (test code=BA%) 0.3 % 0.0-2.0 NUCLEATED RBC % (test code=NRBC%) 0.0 % 0-0 NEUTROPHIL # (test code=NT#) 7.89 x10 3/uL 2.0-7.6 IMMATURE GRANULOCYTE # (test code=IG#) 0.03 x10 3/uL 0.00-0.03 LYMPHOCYTE # (test code=LY#) 0.36 x10 3/uL 1.0-3.8 MONOCYTE # (test code=MO#) 0.78 x10 3/uL 0.1-0.8 EOSINOPHIL # (test code=EO#) 0.02 x10 3/uL 0.0-0.2 BASOPHIL # (test code=BA#) 0.03 x10 3/uL 0.0-0.2 NUCLEATED RBC # (test code=NRBC#) 0.00 x10 3/uL 0.0-0.1 MANUAL DIFF REQUIRED (test code=MDIFF) NO PLT [id number] 19:47:00* Test Item Value Reference Range Comments PLATELET ESTIMATE (test code=PLTEST) THOUSAND ADEQUATE CBC W/AUTO [id number] 19:47:00* Test Item Value Reference Range Comments WHITE BLOOD CELL (test code=WBC) 9.11 x10 3/uL 4.5-11.0 RED BLOOD CELL (test code=RBC) 3.45 x10 6/uL 4.00-5.60 HEMOGLOBIN (test code=HGB) 11.1 g/dL 12.5-16.9 HEMATOCRIT (test code=HCT) 36.0 % 37.5-50.7 MEAN CELL VOLUME (test code=MCV) 104.3 fL 81.0-99.0 MEAN CELL HGB (test code=MCH) 32.2 pg 27.0-33.0 MEAN CELL HGB CONCETRATION (test code=MCHC) 30.8 g/dL 33.0-37.0 RED CELL DISTRIBUTION WIDTH CV (test code=RDW) 15.6 % 11.5-14.5 RED CELL DISTRIBUTION WIDTH SD (test code=RDW-SD) 58.8 fL 37.0-54.0 PLATELET COUNT (test code=PLT) 122 x10 3/uL 150-400 MEAN PLATELET VOLUME (test code=MPV) 11.8 fL 7.0-9.0 NEUTROPHIL % (test code=NT%) 86.6 % 56.0-77.0 IMMATURE GRANULOCYTE % (test code=IG%) 0.3 % 0.0-2.0 LYMPHOCYTE % (test code=LY%) 4.0 % 14.0-32.0 MONOCYTE % (test code=MO%) 8.6 % 4.8-9.0 EOSINOPHIL % (test code=EO%) 0.2 % 0.3-3.7 BASOPHIL % (test code=BA%) 0.3 % 0.0-2.0 NUCLEATED RBC % (test code=NRBC%) 0.0 % 0-0 NEUTROPHIL # (test code=NT#) 7.89 x10 3/uL 2.0-7.6 IMMATURE GRANULOCYTE # (test code=IG#) 0.03 x10 3/uL 0.00-0.03 LYMPHOCYTE # (test code=LY#) 0.36 x10 3/uL 1.0-3.8 MONOCYTE # (test code=MO#) 0.78 x10 3/uL 0.1-0.8 EOSINOPHIL # (test code=EO#) 0.02 x10 3/uL 0.0-0.2 BASOPHIL # (test code=BA#) 0.03 x10 3/uL 0.0-0.2 NUCLEATED RBC # (test code=NRBC#) 0.00 x10 3/uL 0.0-0.1 MANUAL DIFF REQUIRED (test code=MDIFF) NO PLT [id number] 19:47:00* Test Item Value Reference Range Comments PLATELET ESTIMATE (test code=PLTEST) THOUSAND ADEQUATE PLT RESPONSE TO [id number] 19:02:00* Test Item Value Reference Range Comments PLT RESPONSE TO ASPIRIN (test code=ASPRES) 460 ARU Reference RangePre-Aspirin 620-672 ARU>=550 ARU - Platelet dysfunction consistent with aspirin has not has not been detected.< 550 ARU - Platelet dysfunction consistent with aspirin has been detected.Results should be interpreted in conjunction with otherlaboratory and clinical data available to the clinician. PLT RESPONSE TO [id number] 19:02:00* Test Item Value Reference Range Comments PLT RESPONSE TO PLAVIX (test code=PLAVRES) 169 PRU 182-335 Values <180 PRU are specific evidence of a P2Y12 inhibitoreffect LIPOPROTEIN [id number] 19:01:00* Test Item Value Reference Range Comments LIPOPROTEIN LDL (test code=LDL) 54 mg/dL 0-100 <100 [id number] NEAR OPTIMAL/ABOVE [id number] [id number] HIGH>LK=878 VERY HIGH*Guidelines provided by the National Cholesterol EducationProgram Adult Treatment Panel III [id number] 18:38:00* Test Item Value Reference Range Comments TROPONIN-I (test code=TROPI) 0.046 ng/mL 0.000-0.045 Negative: <=0.045 Positive: >=0.046 Correlation with serial results, other cardiac markers andclinical findings is necessary to determine the clinicalsignificance of this result. Results using different methodologies should not be comparedto one another as quantitative results may vary by method. COMMENTS: 3 troponins total (including troponin done in ED)- XR KNEE 1 OR 2 V BI 2018-11-28 18:32:00 FAX: Denita Moncada [phone] [place]: St: ADM FAX: Nat Mo MD [phone] FAX: Luciano Muller MD [phone] Name: ROHIT MARION [facility] : 1965 Age/S: 53/M [address] [place] [address] Unit #: [id number] Loc: [address] [address] Phys: Denita Moncada Acct: [id number] Dis Date: Status: ADM IN PH ONE #: [phone] Exam Date: 11/28/2018 1820 FAX #: [phone] Reason: PAIN, EDEMA EXAMS: CPT CODE: [id number] XR KNEE 1 OR 2 [place] BI [address] PROCEDURE: Right knee AP lateral radiographs. Left knee AP lateral radiographs. INDICATION: PAIN, EDEMA . COMPARISON: None. FINDINGS: RIGHT: Extensive severe vascular wall calcifications are p resent. No acute bony fracture or dislocation. No joint effusion. LEFT: Extensive severe vascular wall calcifications. No acute bony fracture or dislocation. No joint effusion. IMPRESSION: 1. No acute abnormality identified in the right knee. 2. No acute a bnormality identified in the left knee. 3. Extensive severe vascular wa ll calcifications bilaterally. SL: LORENA at 1832 Reported and si gned by: Jefferson Amador M.D. CC: Denita Moncada; Nat Castaneda; Luciano Muller MD Technologist: RT Vikash(R) Trnscrd Date/Time/By: 11/28/2018 (1831) : By: [email or web address] Orig Print D/T: S: 11/28/2018 (1834) PAGE 1 Signed Report [id number] 18:09:00* Test Item Value Reference Range Comments GLUBED (test code=GLUBED) 312 MG/DL 70-110 Performed by certified gear milling machine set up operator at [facility] - CT ANGIO [id number] 16:05:00 Name: ROHIT MARION [facility] : 1965 Age/S: 53 / M [address] [place] [address] Unit #: [id number] Loc: [place] [address] Phys: Fran Zapata MD Acct: [id number] Dis Date: Status: ADM IN PHONE #: [phone] Exam Date: 11/28/2018 1511 FAX #: [phone] Reason: acute injury, CT w/ SAH EXAMS: CPT CODE: [id number] CT [place] HEAD [address] Clinical Indication: Subarachnoid hemorrhage. Comparison: Brain CT 11/28/2018 TECHNIQUE: Sequential trans-axial images of the head was obtained with a multi-detector helical CT after iodinated contrast administration. Axial, coronal and sagittal MIP reconstructions were obtained. IV CONTRAST: 100 mL of Isovue IV. CT Radiation Dose DLP: 374.24 mGy-cm. DLP means Dose Length Product, a radiation dose metric that does not report individual patient dose, but is a reference value related to the radiation output of the scanner used for this exam. CT imaging performed at this location utilizes radiation dose optimization techniques which include one or more of the following: -Automated exposure control -Adjustment of the mA and/or kV according to patient size -Use of iterative reconstruction technique FINDINGS: ANTERIOR CIRCULATION: Right internal carotid artery: Atherosclerosis results in moderate stenosis. No aneurysm. Right anterior cerebral artery: Patent. No aneurysm. Right middle cerebral artery: Markedly attenuated M1 segment and sylvian segments. No aneurysm identified. Left internal carotid artery: Atherosclerosis results in moderate stenosis. Left anterior cerebral artery: Hypoplastic A1 segment, variant of normal. Otherwise patent. Left middle cerebral artery: Patent. Anterior communicating artery: No signs of aneurysm. Posterior communicating artery: Patent on the left and not visualized on the right. PAGE 1 Signed Report (CONTINUED) Name: ROHIT MARION [facility] : 1965 Age/S: 53 / M [address] [place] [address] Blvd Unit #: [id number] Loc: [place] [address] Phys: Fran Zapata MD Acct: [id number] Dis Date: Status: ADM IN PHONE #: [phone] Exam Date: 11/28/2018 1511 FAX #: [phone] Reason: acute injury, CT w/ SAH EXAMS: CPT CODE: [id number] CT [place] HEAD [address] < Continued> POSTERIOR CIRCULATION: Right vertebral artery: Atherosclerotic results in mild/moderate stenosis. Right posterior inferior cerebellar artery: Patent. Left vertebral artery: Marked atherosclerosis in the intracranial segment. Severe stenosis beginning at partially imaged distal V2 segment and intracranially, with partial occlusion suspected (series 2, image 145). Left posterior inferior cerebellar artery: Not well-visualized. Basilar artery: Fenestrated proximally, variant of normal. No occlusion Right superior cerebellar artery: Patent. Right posterior cerebral artery: Patent. Left superior cerebellar artery: Patent. Left posterior cerebral artery: Patent. CONTRAST ENHANCED BRAIN: There appears to be new intra-axial hemorrhage in the right orbital frontal region that measures approximately 2.6 cm x 2.2 cm (series 2, image 98). Redemonstration of subarachnoid hemorrhage in the right cerebral hemisphere. Gliosis in the superior right frontal lobe. IMPRESSION: 1. No signs of aneurysm despite the presence of subarachnoid hemorrhage centered in the right suprasellar cistern. Despite this, ruptured aneurysm cannot be excluded. 2. New intra-axial hemorrhage in the right orbitofrontal region measures 2.6 cm x 2.2 cm. 3. Markedly attenuated right middle cerebral artery, which can represent spasm due to the subarachnoid hemorrhage. 4. 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 PAGE 2 Signed Report (CONTINUED) Name: ROHIT MARION [facility] : 1965 Age/S: 53 / M [address] [place] [address] Blvd Unit #: [id number] Loc: [place] [address] Phys: Fran Zapata MD Acct: [id number] Dis Date: Status: ADM IN PHONE #: [phone] Exam Date: 11/28/2018 1511 FAX #: [phone] Reason: acute injury, CT w/ SAH EXAMS: CPT CODE: [id number] CT [place] HEAD [address] <Continued> Dr. Dave discussed the results via phone with Dr. Zapata at 4:03 PM, 11/28/2018 SL: [id number] at 1605 Reported and signed by: Nelson Dave M.D. CC: Nat Castaneda; Fran Zapata MD Technologist:Shalini Isbell, RT(R)(CT) CTD I: DLP: Trnscb Date/Time: 11/28/2018 (160) [email or web address] Orig Print D/T: S: 11/28/2018 (1608) PAGE 3 Signed Report [id number] 15:55:00* Test Item Value Reference Range Comments GLUBED (test code=GLUBED) 252 MG/DL 70-110 Performed by certified gear milling machine set up operator at [facility] [id number] 14:58:00* Test Item Value Reference Range Comments TROPONIN-I (test code=TROPI) 0.032 ng/mL 0.000-0.045 Negative: <=0.045 Positive: >=0.046 Correlation with serial results, other cardiac markers andclinical findings is necessary to determine the clinicalsignificance of this result. Results using different methodologies should not be comparedto one another as quantitative results may vary by method. COMMENTS: 3 troponins total (including troponin done in ED)- XR SHOULDER 2 + V [id number] 14:36:00 FAX: Nat Mo MD [phone] [place]: St: PRE FAX: Fran Ambrose MD [phone] Name: ROHIT MARION [facility] : 1965 Age/S: 53/M [address] [place] [address] Unit #: [id number] Loc: [address] [place] [address] Phys: Fran Zapata MD Acct: [id number] Dis Date: Status: PRE ER PHONE #: [phone] Exam Date: 11/28/2018 1422 FAX #: [phone] Reason: acute injury EXAMS: CPT CODE: [id number] XR SHOULDER 2 + V [place] [address]226 Patient: ROHIT MARION. : 1965; Age: 53 years; Gender: Male. MR: [id number]. Ordering physician: Fran Zapata MD. LEFT SHOULDER 3 VIEWS. HISTORY: Acute injury of left shoulder with pain. COMPARISON: None. IMPRESSION: Transscapular, internal and external rotation views of the left shoulder were obtained. Mildly displaced fracture of distal left clavicle noted, with clavicular shaft mildly displaced inferiorly in relation to distal fracture fragment. There is also suggestion of possible mild malalignment of the AC joint possibly representing grade 1-2 AC joint injury. Glenohumeral joint is well-preserved. Surrounding soft tissue is unremarkable. SL: [id number] at 1436 Reported and signed by: Dave Montoya M.D. CC: Nat Castaneda; Fran Zapata MD Technologist: Tana Hoyt, RT(R); Quin Candelaria, RT(R) [facility] Date/Time/By: 11/28/2018 (1291) : By: [email or web address] Orig Print D/T: S: 11/28/2018 (5403) PAGE 1 Signed Report [id number] 14:35:00* Test Item Value Reference Range Comments GLUBED (test code=GLUBED) 66 MG/DL 70-110 Performed by certified gear milling machine set up operator at [facility] - XR CHEST 1 [id number] 12:56:00 FAX: Nat Mo MD [phone] [place]: St: REG FAX: Zain Bolanos MD Name: ROHIT MARION [facility] : 1965 Age/S: 53/M [address] [facility] Unit #: [id number] Loc: [place] [address] Phys: Zain Bolanos MD Acct: [id number] Dis Date: Status: REG ER PHONE #: [phone] Exam Date: 11/28/2018 1250 FAX #: [phone] Reason: trauma EXAMS: CPT CODE: [id number] XR CHEST 1 V 17987 HISTORY: Syncope. COMPARISON: September 30, 2016. Small bibasal effusions with dependent changes without infiltrates or congestion. Mild bullous changes in the upper lobes. Left ICD with the leads in the right atrium and right ventricle remains unchanged. Mild cardiomegaly.. IMPRESSION: Small bibasal effusions with dependent changes without infiltrates or congestion. Mild bullous changes in the upper lobes. at 8898 Reported and signed by: Orlando Mendez M.D. CC: Nat Castaneda; Zain Bolanos MD Technologist: LILIAM GANNON RT(R) Trnscrd Date/Time/By: 11/28/2018 (1256) : By: [email or web address] Orig Print D/T: S: 11/28/2018 (1821) PAGE 1 Signed Report - CT C-SPINE W/O [id number] 12:38:00 Name: ROHIT MARION [facility] : 1965 Age/S: 53 / M [address] Unit #: [id number] Loc: [place] [address] Phys: Zain Bolanos MD Acct: [id number] Dis Date: Status: REG ER PHONE #: [phone] Exam Date: 11/28/2018 1205 FAX #: [phone] Reason: fall EXAMS: CPT CODE: [id number] CT C-SPINE W/O CONTRAST 57938 HISTORY: Pain after fall. COMPARISON: None available. CT cervical spine without contrast: Automated exposure control. No acute fracture of the cervical spine. No prevertebral soft tissue swelling. Scattered posterior osteophytes. No canal or foraminal stenosis. Heterogeneous thyroid glands. Superior mediastinum is unremarkable. Lung apices are clear. Anatomic alignment. Vertebral body heights are maintained. Disc spaces are preserved. Uncovertebral joints are narrowed. IMPRESSION: No acute fracture. Anatomic alignment. Vertebral body heights are maintained. at 1238 Reported and signed by: Orlando Mendez M.D. CC: Nat Castaneda; Zain Bolanos MD Technologist:Malika Muse RT(R),CT CTDI: DLP: Trnscb Date/Time: 11/28/2018 (1238) [email or web address] Orig Print D/T: S: 11/28/2018 (1241) PAGE 1 Signed Report B- TYPE NATRIURETIC [id number] 12:19:00* Test Item Value Reference Range Comments B-TYPE NATRIURETIC PEPTIDE (test code=BNP) 1048.12 pgram/mL 0-100 - CT HEAD/BRAIN W/O [id number] 11:54:00 Name: ROHIT MARION [facility] : 1965 Age/S: 53 / M [address] Unit #: [id number] Loc: [place] [address] Phys: Zain Bolanos MD Acct: [id number] Dis Date: Status: REG ER PHONE #: [phone] Exam Date: 11/28/2018 1145 FAX #: [phone] Reason: syncope, head trauma, plavix EXAMS: CPT CODE: [id number] CT HEAD/BRAIN W/O CONT 54836 HISTORY: Syncope and head trauma and on Plavix. COMPARISON: None available. CT brain without contrast: Automated exposure control Subarachnoid hemorrhage in the right frontal and temporal cortex extending slightly into the suprasellar cistern. Minimal inferior left frontal subarachnoid hemorrhage as well. No extra-axial fluid collections. No acute territorial vascular infarction. Alonso-white matter differentiation is preserved. The sulci, gyri, ventricles, subarachnoid spaces and basal cisterns otherwise are normal for patient's age. No herniation, hydrocephalus or midline shift. Mild chronic white matter ischemic disease. 4th ventricle is midline. Intraorbital contents are unremarkable. Visualized paranasal sinuses are clear. No bony calvarial defect is noted. IMPRESSION: Acute right frontal and temporal subarach noid hemorrhage extending into the suprasellar cistern without mass effe ct. These findings were discussed with Dr. Bolanos at 11:52 AM. FOR INTERNAL CODING PURPOSES ONLY RESULT CODE: CVR at 1154 Reported and signed by: Orlando Mendez M.D. CC: Zain Bolanos MD chnologist:Ilda Lizama RT(R)(CT) CTDI: DLP: Trnscb Date/ Time: 11/28/2018 (5568) [email or web address] Orig Print D/T: S: 11/16 (2908) PAGE 1 Signed Report BASIC METABOLIC [id number] 11:42:00* Test Item Value Reference Range Comments SODIUM (test code=NA) 141 mmol/L 136-145 POTASSIUM (test code=K) 5.3 mmol/L 3.5-5.1 Specimen 1+ Hemolysed.Some results MAY NOT be accurate due to hemolysis. CHLORIDE (test code=CL) 100.0 mmol/L 98-107 CARBON DIOXIDE (test code=CO2) 31.0 mmol/L 21-32 ANION GAP (test code=GAP) 15.3 10-20 GLUCOSE (test code=GLU) 90 mg/dL 74-106 BLOOD UREA NITROGEN (test code=BUN) 72 mg/dL 7-18 GLOMERULAR FILTRATION RATE (test code=GFR) 7 mL/min >=60 Estimated GFR by using Modified MDRD formula.Chronic kidney disease is defined as either kidney damageor GFR <60 mL/min/1.73 m2 for >3 months. CREATININE (test code=CREAT) 8.50 mg/dL 0.7-1.3 BUN/CREATININE RATIO (test code=BUN/CREA) 8.5 10-20 CALCIUM (test code=CA) 8.9 mg/dL 8.5-10.1 [id number] 11:42:00* Test Item Value Reference Range Comments TROPONIN-I (test code=TROPI) 0.026 ng/mL 0-0.045 PROTHROMBIN [id number] 11:37:00* Test Item Value Reference Range Comments PROTHROMBIN TIME PATIENT (test code=PTP) 12.0 seconds 9.0-14.0 INTERNATIONAL NORMAL RATIO (test code=INR) 1.0 0.8-1.2 The therapeutic range for oral anticoagulant therapy formost indications is an international normalized ratio (INR)of between 2.0 and 3.0. The recommended therapeutic INRrange for various clinical situations is listed below: Clinical Situation INR range Pulmonary e mbolism treatment (2.0-3.0)Venous thrombosis treatmentVenous thrombosis prophylaxis (high risk surgery)Prevention of systemic embolism from: Acute myocardial infarction Valvular heart disease Atrial fibrillation Mechanical prosthetic heart valves (2.5-3.5) IS PATIENT ON ANTICOAGULANTS? NTHROMBOPLASTIN TIME [id number] 11:37:00* Test Item Value Reference Range Comments THROMBOPLASTIN TIME PARTIAL (test code=PTT) 33.0 seconds 25.0-36.5 IS PATIENT ON ANTICOAGULANTS? [id number] 11:37:00* Test Item Value Reference Range Comments MAGNESIUM (test code=MAG) 3.0 mg/dL 1.8-2.4 BASIC METABOLIC [id number] 11:35:00* Test Item Value Reference Range Comments SODIUM (test code=NA) 141 mmol/L 136-145 POTASSIUM (test code=K) 5.3 mmol/L 3.5-5.1 Specimen 1+ Hemolysed.Some results MAY NOT be accurate due to hemolysis. CHLORIDE (test code=CL) 100.0 mmol/L 98-107 CARBON DIOXIDE (test code=CO2) mmol/L 21-32 ANION GAP (test code=GAP) 10-20 GLUCOSE (test code=GLU) mg/dL 74-106 BLOOD UREA NITROGEN (test code=BUN) mg/dL 7-18 GLOMERULAR FILTRATION RATE (test code=GFR) mL/min >=60 CREATININE (test code=CREAT) mg/dL 0.7-1.3 BUN/CREATININE RATIO (test code=BUN/CREA) 10-20 CALCIUM (test code=CA) mg/dL 8.5-10.1 [id number] 11:35:00* Test Item Value Reference Range Comments TROPONIN-I (test code=TROPI) ng/mL 0-0.045 CBC W/O [id number] 11:29:00* Test Item Value Reference Range Comments WHITE BLOOD CELL (test code=WBC) 6.8 K/mm3 4.5-12.5 RED BLOOD CELL (test code=RBC) 3.82 mill/mm3 4.0-5.8 HEMOGLOBIN (test code=HGB) 12.0 gram/dL 13.0-17.5 HEMATOCRIT (test code=HCT) 39.4 % 42.0-52.0 MEAN CELL VOLUME (test code=MCV) 103.1 fL 80-98 MEAN CELL HGB (test code=MCH) 31.4 picogram 27.0-33.0 MEAN CELL HGB CONCETRATION (test code=MCHC) 30.5 gram/dL 33.0-36.0 RED CELL DISTRIBUTION WIDTH (test code=RDW) 15.6 % 11.6-16.2 PLATELET COUNT (test code=PLT) 156 K/mm3 150-450 MEAN PLATELET VOLUME (test code=MPV) 11.3 fL 6.7-11.0 BASIC METABOLIC [id number] 11:29:00* Test Item Value Reference Range Comments SODIUM (test code=NA) 141 mmol/L 136-145 POTASSIUM (test code=K) 5.3 mmol/L 3.5-5.1 CHLORIDE (test code=CL) 100.0 mmol/L 98-107 CARBON DIOXIDE (test code=CO2) mmol/L 21-32 ANION GAP (test code=GAP) 10-20 GLUCOSE (test code=GLU) mg/dL 74-106 BLOOD UREA NITROGEN (test code=BUN) mg/dL 7-18 GLOMERULAR FILTRATION RATE (test code=GFR) mL/min >=60 CREATININE (test code=CREAT) mg/dL 0.7-1.3 BUN/CREATININE RATIO (test code=BUN/CREA) 10-20 CALCIUM (test code=CA) mg/dL 8.5-10.1 [id number] 11:29:00* Test Item Value Reference Range Comments TROPONIN-I (test code=TROPI) ng/mL 0-0.045 T4, [id number] 16:41:00* Test Item Value Reference Range Comments FREE T4 (BEAKER) (test fznp=806) 1.42 ng/dL 0.70-1.48 TSH/FREE T4 IF [id number] 15:31:00* Test Item Value Reference Range Comments THYROID STIMULATING HORMONE (BEAKER) (test rxfv=592) 6.50 uIU/mL 0.35-4.94 HEMOGLOBIN [id number] 13:25:00* Test Item Value Reference Range Comments HEMOGLOBIN A1C (BEAKER) (test vepu=255) 6.0 % 4.3-6.1 COMPREHENSIVE METABOLIC [id number] 10:26:00* Test Item Value Reference Range Comments TOTAL PROTEIN (BEAKER) (test odpk=299) 7.3 gm/dL 6.0-8.3 ALBUMIN (BEAKER) (test pdvb=5263) 4.0 g/dL 3.5-5.0 ALKALINE PHOSPHATASE (BEAKER) (test qfbv=474) < U/L 40-150 BILIRUBIN TOTAL (BEAKER) (test qdjg=471) 0.6 mg/dL 0.2-1.2 SODIUM (BEAKER) (test htsu=095) 141 meq/L 136-145 POTASSIUM (BEAKER) (test tvpw=633) 4.0 meq/L 3.5-5.1 CHLORIDE (BEAKER) (test vxfl=188) 98 meq/L 98-107 CO2 (BEAKER) (test ubsr=436) 30 meq/L 22-29 BLOOD UREA NITROGEN (BEAKER) (test owvf=498) < mg/dL 7-21 CREATININE (BEAKER) (test cjyv=667) 4.69 mg/dL 0.57-1.25 GLUCOSE RANDOM (BEAKER) (test jywy=480) 119 mg/dL 70-105 CALCIUM (BEAKER) (test cfcn=770) 8.8 mg/dL 8.4-10.2 AST (SGOT) (BEAKER) (test vxow=002) 12 U/L 5-34 ALT (SGPT) (BEAKER) (test zeio=034) 11 U/L 6-55 EGFR (BEAKER) (test lado=1075) 13 mL/min/1.73 sq m ESTIMATED GFR IS NOT ACCURATE CREATININE CLEARANCE IN PREDICTING GLOMERULAR FILTRATION RATE. ESTIMATED GFR IS NOT APPLICABLE FOR DIALYSIS PATIENTS. [id number] 10:19:00* Test Item Value Reference Range Comments MAGNESIUM (BEAKER) (test aeme=867) 2.0 mg/dL 1.6-2.6 CBC W/PLT COUNT & AUTO [id number] 10:08:00* Test Item Value Reference Range Comments WHITE BLOOD CELL COUNT (BEAKER) (test zhtq=952) 6.3 K/ L 3.5-10.5 RED BLOOD CELL COUNT (BEAKER) (test moea=781) 3.47 M/ L 4.63-6.08 HEMOGLOBIN (BEAKER) (test nowe=025) 10.6 GM/DL 13.7-17.5 HEMATOCRIT (BEAKER) (test suvg=183) 35.1 % 40.1-51.0 MEAN CORPUSCULAR VOLUME (BEAKER) (test lrpl=032) 101.2 fL 79.0-92.2 MEAN CORPUSCULAR HEMOGLOBIN (BEAKER) (test rhda=351) 30.5 pg 25.7-32.2 MEAN CORPUSCULAR HEMOGLOBIN CONC (BEAKER) (test oept=236) 30.2 GM/DL 32.3-36.5 RED CELL DISTRIBUTION WIDTH (BEAKER) (test ylxi=489) 16.1 % 11.6-14.4 PLATELET COUNT (BEAKER) (test uemf=485) 168 K/CU MM 150-450 MEAN PLATELET VOLUME (BEAKER) (test ehru=987) 10.3 fL 9.4-12.4 NUCLEATED RED BLOOD CELLS (BEAKER) (test grep=137) 0 /100 WBC 0-0 NEUTROPHILS RELATIVE PERCENT (BEAKER) (test ykzy=310) 77 % LYMPHOCYTES RELATIVE PERCENT (BEAKER) (test rcow=836) 8 % MONOCYTES RELATIVE PERCENT (BEAKER) (test aymi=845) 10 % EOSINOPHILS RELATIVE PERCENT (BEAKER) (test mepj=593) 5 % BASOPHILS RELATIVE PERCENT (BEAKER) (test osbl=999) 1 % NEUTROPHILS ABSOLUTE COUNT (BEAKER) (test txgy=141) 4.79 K/ L 1.78-5.38 LYMPHOCYTES ABSOLUTE COUNT (BEAKER) (test zcut=667) 0.47 K/ L 1.32-3.57 MONOCYTES ABSOLUTE COUNT (BEAKER) (test pixe=693) 0.63 K/ L 0.30-0.82 EOSINOPHILS ABSOLUTE COUNT (BEAKER) (test bzvk=283) 0.29 K/ L 0.04-0.54 BASOPHILS ABSOLUTE COUNT (BEAKER) (test mnsd=343) 0.06 K/ L 0.01-0.08 IMMATURE GRANULOCYTES-RELATIVE PERCENT (BEAKER) (test glvj=4252) 0 % 0-1 FLOW PRA CLASS I AND [id number] 15:25:00* Test Item Value Reference Range Comments DATE OF SERUM (BEAKER) (test ntqq=9867) 148093 SERUM # (BEAKER) (test hifm=0667) [id number] FLOW PRA CLASS I AND II (test ognd=3785) See Scanned Report HEMOGLOBIN [id number] 15:51:00* Test Item Value Reference Range Comments HEMOGLOBIN A1C (BEAKER) (test ivfq=083) 6.0 % 4.3-6.1 TSH/FREE T4 IF [id number] 12:34:00* Test Item Value Reference Range Comments THYROID STIMULATING HORMONE (BEAKER) (test jkuy=557) 2.22 uIU/mL 0.35-4.94 [id number] 12:12:00* Test Item Value Reference Range Comments PREALBUMIN (BEAKER) (test vfbk=904) 28 mg/dL 14-45 B-TYPE NATRIURETIC FACTOR (BNP)2016-07-29 11:57:00* Test Item Value Reference Range Comments B-TYPE NATRIURETIC PEPTIDE (BEAKER) (test lkzf=139) 918 pg/mL 0-100 BASIC METABOLIC [id number] 11:56:00* Test Item Value Reference Range Comments SODIUM (BEAKER) (test slqg=241) 137 meq/L 136-145 POTASSIUM (BEAKER) (test pnys=983) 4.4 meq/L 3.5-5.1 CHLORIDE (BEAKER) (test kmek=595) 96 meq/L 98-107 CO2 (BEAKER) (test rccp=556) 28 meq/L 22-29 BLOOD UREA NITROGEN (BEAKER) (test wgzl=793) 63 mg/dL 7-21 CREATININE (BEAKER) (test ewth=666) 4.73 mg/dL 0.57-1.25 GLUCOSE RANDOM (BEAKER) (test atfi=352) 188 mg/dL 70-105 CALCIUM (BEAKER) (test bqco=266) 9.0 mg/dL 8.4-10.2 EGFR (BEAKER) (test slol=4878) 13 mL/min/1.73 sq m ESTIMATED GFR IS NOT ACCURATE CREATININE CLEARANCE IN PREDICTING GLOMERULAR FILTRATION RATE. ESTIMATED GFR IS NOT APPLICABLE FOR DIALYSIS PATIENTS. URIC [id number] 11:54:00* Test Item Value Reference Range Comments URIC ACID (BEAKER) (test gwnl=281) 7.8 mg/dL 2.6-7.2 [id number] 11:54:00* Test Item Value Reference Range Comments MAGNESIUM (BEAKER) (test byfm=079) 2.5 mg/dL 1.6-2.6 LIPID [id number] 11:54:00* Test Item Value Reference Range Comments TRIGLYCERIDES (BEAKER) (test itod=907) 51 mg/dL CHOLESTEROL (BEAKER) (test qazg=857) 128 mg/dL HDL CHOLESTEROL (BEAKER) (test ivyz=566) 54 mg/dL LDL CHOLESTEROL CALCULATED (BEAKER) (test qhtt=304) 64 mg/dL Triglyceride Reference Range: Low Risk <150 Borderline 150-199 High Risk 200-499 Very High Risk >=500Cholesterol Reference Range: Low Risk <200 Borderline 200-239 High Risk >240HDL Cholesterol Reference Range: Low Risk >=60 High Risk <40LDL Cholesterol Reference Range: Optimal <100 Near Optimal 100-129 Borderline 130-159 High 160-189 Very High >=190 HEPATIC FUNCTION [id number] 11:54:00* Test Item Value Reference Range Comments TOTAL PROTEIN (BEAKER) (test olzy=299) 7.5 gm/dL 6.0-8.3 ALBUMIN (BEAKER) (test pddd=4527) 4.3 g/dL 3.5-5.0 BILIRUBIN TOTAL (BEAKER) (test zeem=731) 0.7 mg/dL 0.2-1.2 BILIRUBIN DIRECT (BEAKER) (test hami=286) 0.3 mg/dL 0.1-0.5 ALKALINE PHOSPHATASE (BEAKER) (test ised=777) 125 U/L 40-150 AST (SGOT) (BEAKER) (test mbql=831) 14 U/L 5-34 ALT (SGPT) (BEAKER) (test nijl=645) 16 U/L 6-55 CBC W/PLT COUNT & AUTO [id number] 11:48:00* Test Item Value Reference Range Comments WHITE BLOOD CELL COUNT (BEAKER) (test bvyr=058) 5.6 K/ L 4.0-10.0 RED BLOOD CELL COUNT (BEAKER) (test ovbt=127) 3.74 M/ L 4.20-5.80 HEMOGLOBIN (BEAKER) (test znsq=701) 12.3 GM/DL 13.0-16.8 HEMATOCRIT (BEAKER) (test oaan=811) 37.5 % 40.0-50.0 MEAN CORPUSCULAR VOLUME (BEAKER) (test gikm=538) 100.0 fL 82.0-98.0 MEAN CORPUSCULAR HEMOGLOBIN (BEAKER) (test oilg=192) 33.0 pg 27.0-33.0 MEAN CORPUSCULAR HEMOGLOBIN CONC (BEAKER) (test yjtf=166) 32.8 GM/DL 32.0-36.0 RED CELL DISTRIBUTION WIDTH (BEAKER) (test iqsp=904) 13.8 % 10.3-14.2 PLATELET COUNT (BEAKER) (test khkp=273) 118 K/CU MM 150-430 MEAN PLATELET VOLUME (BEAKER) (test slhq=084) 8.1 fL 6.5-10.5 NUCLEATED RED BLOOD CELLS (BEAKER) (test mqix=365) 0 /100 WBC 0-0 NEUTROPHILS RELATIVE PERCENT (BEAKER) (test wlea=761) 69 % LYMPHOCYTES RELATIVE PERCENT (BEAKER) (test sugu=712) 12 % MONOCYTES RELATIVE PERCENT (BEAKER) (test zgip=876) 10 % EOSINOPHILS RELATIVE PERCENT (BEAKER) (test hmzg=149) 8 % BASOPHILS RELATIVE PERCENT (BEAKER) (test jpoj=210) 1 % NEUTROPHILS ABSOLUTE COUNT (BEAKER) (test adio=913) 3.87 K/ L 1.80-8.00 LYMPHOCYTES ABSOLUTE COUNT (BEAKER) (test yuda=873) 0.68 K/ L 1.48-4.50 MONOCYTES ABSOLUTE COUNT (BEAKER) (test dapg=714) 0.57 K/ L 0.00-1.30 EOSINOPHILS ABSOLUTE COUNT (BEAKER) (test aamo=060) 0.43 K/ L 0.00-0.50 BASOPHILS ABSOLUTE COUNT (BEAKER) (test ivuw=447) 0.03 K/ L 0.00-0.20 0.00PROTHROMBIN [id number] 11:45:00* Test Item Value Reference Range Comments PROTIME (BEAKER) (test qytf=186) 14.5 seconds 11.7-14.7 INR (BEAKER) (test ztwe=139) 1.1 <=5.9 RECOMMENDED COUMADIN/WARFARIN INR THERAPY RANGESSTANDARD DOSE: 2.0 - 3.0 Inclu johnny: PROPHYLAXIS for venous thrombosis, systemic embolization; TREATMENT for brynn ous thrombosis and/or pulmonary embolus.HIGH RISK: Target INR is 2.5-3.5 for pat ients with mechanical heart valves.TISSUE [id number] 13:42:00Surgical Pathology Report Case: [id number] Authorizing Provider: Birdie Collier M D Ordering Provider: Birdie Collier MD Ordering Location: [facility] Collected: 05/01/2016 0933 Patholog ist: Izabel Sy, Received: 05/01/2016 1100 MD Specimens: A) - Polyp, Colon - R ight/Ascending, w/ hot snare B) - Polyp, Colon - Rectum, w/ hot snare A. COLON, RIGHT /ASCENDING, HOT SNARE POLYPECTOMY: - TUBULOVILLOUS ADENOMA - INKED MARGIN IS FREE OF DYSPLASIA - NO HIGH GRADE DYSPLASIA OR INVASIVE CARCINOMA SEENB. RECTUM, POLYP, HOT SNARE POLYPECTOMY: - TUBULOVILLOUS ADENOM A - INKED MARGIN IS FREE OF DYSPLASIA - NO HIGH GRADE DYSPLASIA OR INVASIV E CARCINOMA SEEN Signing Pathologist Direct Phone Line: [phone] X [facility] Right/ascending colon polypB . Rectum polypSpecimen A: Received in formalin labeled "polyp, colon right/ascen ding" is a 2.5 x 2.0 x 0.6 cm, pink-goodson, irregular, polypoid fragment of soft ti ssue.The resection margin is inked, the specimen is serially sectioned and entir aden submitted in cassettes A1-A2.Specimen B: Received in formalin labeled "polyp , colon rectum" is a 1.0 x 0.6 x 0.5 cm, pink-goodson, irregular, polypoid fragment of soft tissue. The specimen is bisected and entirely submitted in cassette B1. DB/ewPERFORMEDPOCT-GLUCOSE [id number] 10:20:00* Test Item Value Reference Range Comments POC-GLUCOSE METER (ZipMatch) (test xpgm=3192) 198 mg/dL 70-110 TESTED AT [facility] [address] [facility] [address] [id number] 08:09:00* Test Item Value Reference Range Comments GLUCOSE RANDOM (GAIL) (test jzni=995) 159 mg/dL 70-105 Effective 01/03/2014: Reference Range Change-Adult onlyNew: 70-105 Previous: [id number] 07:39:00* Test Item Value Reference Range Comments HEMOGLOBIN (GAIL) (test qauu=530) 11.9 GM/DL 13.0-16.8
--- OUTSIDE RECORDS SUMMARY | 2019-06-09 12:19 | XMS REPORT | Summary of Care ---
Author Author Kelvin Campbell, [employer] Unknown Address [facility] Phone Unavailable Care Team Providers Care Land Le[employer] Information Clerk Name Role Phone MEG Brooks, LAURENT Paulino Unavailable WYATT Brooks, JAMIE Unavailable Unavailable YOLANDA Brooks, DANIEL Unavailable Unavailable MEG RIVERA GA, LAURENT Benjamin Unavailable Unavailable BUCK RIVERA GA, NIRAJ RIVERA Unavailable Unavailable FELICIA BENNETT MD, CARON Cm Unavailable Unavailable Wyatt RIVERA, Jamie Unavailable Unavailable Unavailable Unavailable Functional Status Name Dates Details Functional status health issues are not documented Status: Name Dates Details Cognitive status health issues are not documented Status: Problems Name Dates Details Anemia (285.9, D64.9) Status: Active Essential hypertension (401.9, I10) Status: Active Edema (782.3, R60.9) Status: Active Fracture of metatarsal (825.25, S92.309A) Status: Active Type 1 diabetes mellitus on insulin therapy (250.01, E10.9) Status: Active Visual impairment (369.9, H54.7) Status: Active Abnormal chest x-ray (793.2, R93.89) Status: Active Venous stasis ulcer, unspecified laterality Status: Active Atherosclerosis of [place] coronary artery without angina pectoris (414.01, I25.10) Status: Active Bilateral leg ulcer (707.10, L97.919) Status: Active Congestive heart failure (428.0, I50.9) Status: Active Diabetes mellitus type 1 (250.01, E10.9) Status: Active Hyperlipidemia (272.4, E78.5) Status: Active Callus of foot (700, L84) Status: Active Neuropathy, diabetic (250.60, E11.40) Status: Active Hypothyroidism (244.9, E03.9) Status: Active End stage renal failure on dialysis (585.6, N18.6) Status: Active 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 * Refills: 0 Active GlucaGen HypoKit 1 MG Injection Solution Reconstituted USE DIRECTED in case of severe hypoglycemia * Quantity: 1 Refills: 4 LAURENT WEAVER M.D. * Start : 06-Sep-2013 Active BD Pen Needle Mini U/F 31G X 5 MM use to inject insulin 5 times daily * Quantity: 5 Refills: 1 JAMIE ZAVALA M.D. * Start : 13-Sep-2013 Active 100 Unit Box HumaLOG KwikPen 100 UNIT/ML Subcutaneous Solution Pen-injector inject per ICR 1:15 g qAC, but 1:20 g on exercise days, and CF 1:60>180 mg/dL MDD:40 U * Quantity: 3 Refills: 0 JAMIE ZAVALA M.D. * Start : 22-May-2015 Active 5 x 3 ML Pen Plavix 75 MG Oral Tablet TAKE 1 TABLET DAILY. * Refills: 0 Active Renvela 800 MG Oral Tablet Take 1 tablet 3 times daily; * Refills: 0 Active Simvastatin 10 MG Oral Tablet TAKE 1 TABLET DAILY. * Refills: 0 Active Accu-Chek Guide In Vitro Strip USE TO CHECK GLUCOSE FIVE TIMES DAILY TO SIX TIMES DAILY * Quantity: 600 Refills: 0 DANIEL GUERRERO M.D. * Start : 17-Apr-2016 Active Carvedilol 3.125 MG Oral Tablet TAKE 1 TABLET TWICE DAILY WITH MEALS. * Quantity: 180 Refills: 1 Active Lasix 20 MG Oral Tablet TAKE 1 TABLET DAILY. * Refills: 0 Active Lantus SoloStar 100 UNIT/ML Subcutaneous Solution Pen-injector INJECT 9 UNITS SUBCUTANEOUSLY IN THE MORNING AND THEN INJECT 5 UNITS SUBCUTANEOU SLY IN THE EVENING (MAX OF 30 UNITS PER DAY) * Quantity: 2 Refills: 0 JAMIE ZAVALA M.D. * Start : 11-Aug-2016 Active 5 x 3 ML Pen Amiodarone HCl - 200 MG Oral Tablet 1 tab bid * Refills: 0 Active Mexiletine HCl - 150 MG Oral Capsule * Refills: 0 Active Accu-Chek FastClix Lancets check BS 5-6 times daily * Quantity: 6 Refills: 0 JAMIE ZAVALA M.D. * Start : 19-Mar-2017 Active 102 Unit Box Sensipar 30 MG Oral Tablet 1 tab 3 times a week * Refills: 0 Active Gabapentin 100 MG Oral Capsule take 1 cap PO QHS * Quantity: 90 Refills: 0 JAMIE ZAVALA M.D. 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 History of hypertension (V12.59, Z86.79) Status: Resolved Procedures Procedure Dates Details History of Thyroid Surgery Sub-Total Thyroidectomy Completed History of Cataract Surgery Completed History of Knee Arthroscopy (Therapeutic) Completed History of Cardio-defib Pulse Generator Implantation Date Completed History of Cardiac Cath Procedure Outcome: Successful Completed Immunization Name Dates Details Influenza on: 03-Dec-2016 Influenza on: 26-Oct-2017 Fluzone Quadrivalent 0.5 ML Intramuscular Suspension on: 22-Oct-2018 Family History Name Dates Details Family history of malignant neoplasm (V16.9, Z80.9) Status: Active Social History Name Dates Details - Status: Name Dates Details Never smoked tobacco (finding) Vital Signs Date Test Result Details [id number] Systolic blood pressure 101 mm[Hg] Status: Comments: Location: LUE; Position: Sitting Diastolic blood pressure 65 mm[Hg] Status: Comments: Location: LUE; Position: Sitting Body height 71 in Status: Weight 155.125 lb Status: Body mass index (BMI) [Ratio] 21.64 kg/m2 Status: Body surface area Derived from formula 1.89 m2 Status: Heart Rate 69 /min Status: Results Date Description Value Details Results not documented Plan of Care Name Dates Details Planned Observations Planned Goals not documented Planned Encounters Appointment; LAURENT WEAVER M.D. On: 13-May-2019 14:45 Instructions Name Dates Details Instructions not documented Encounters Appointment; JAMIE ZAVALA M.D. Encounter Diagnosis: Problem not documented On: 18-Jun-2017 9:00 Appointment; JAMIE ZAVALA M.D. Encounter Diagnosis: Problem not documented On: 22-Sep-2017 9:00 Appointment; SHYANNE LAKHANI M.D. Encounter Diagnosis: Problem not documented On: 06-Oct-2017 11:30 Appointment; CARON DUARTE Encounter Diagnosis: Problem not documented On: 12-Nov-2017 14:45 Appointment; JAMIE ZAVALA M.D. Encounter Diagnosis: Problem not documented On: 22-Dec-2017 9:30 Appointment; TARA, LATONIA Encounter Diagnosis: Problem not documented On: 20-Jan-2018 8:45 Appointment; JAMIE ZAVALA M.D. Encounter Diagnosis: Problem not documented On: 23-Mar-2018 9:00 Appointment; CARON DUARTE Encounter Diagnosis: Problem not documented On: 22-Apr-2018 14:00 Appointment; LAURENT WEAVER M.D. Encounter Diagnosis: Problem not documented On: 04-May-2018 11:00 Appointment; JAMIE ZAVALA M.D. Encounter Diagnosis: Problem not documented On: 24-Jun-2018 9:00 Appointment; JAMIE ZAVALA M.D. Encounter Diagnosis: Problem not documented On: 28-Sep-2018 9:00 Appointment; CARON DUARTE Encounter Diagnosis: Problem not documented On: 21-Oct-2018 14:00 Appointment; LAURENT WEAVER M.D. Encounter Diagnosis: Problem not documented On: 12-Nov-2018 13:30 Appointment; JAMIE ZAVALA M.D. Encounter Diagnosis: Problem not documented On: 18-Apr-2019 14:00
--- OUTSIDE RECORDS SUMMARY | 2019-06-09 12:19 | XMS REPORT | Summary of Care ---
Author Author [facility] Address [address] [place] [address] Phone Unavailable Care Team Providers Care Line Puller Name Role Phone MEG Brooks, LAURENT Unavailable Unavailable WYATT Brooks, JAMIE Unavailable Unavailable YOLANDA Brooks, DANIEL Unavailable Unavailable MEG RIVERA [place], LAURENT Benjamin Unavailable Lora JANE MD [place], NIRAJ RIVERA Unavailable Unavailable FELICIA BENNETT MD, [...] ulcer, unspecified laterality Status: Active Atherosclerosis of [place] coronary artery without angina pectoris (414.01, I25.10) Status: Active Bilateral leg ulcer (707.10, L97.919) Status: Active Congestive heart failure (428.0, I50.9) Status: Active Diabetes mellitus type 1 (250.01, E10.9) Status: Active Hyperlipidemia (272.4, E78.5) Status: Active Callus of foot (700, L84) Status: Active Neuropathy, diabetic (250.60, E11.40) Status: Active 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 * Quantity: 180 Refills: 1 Active Gabapentin 100 MG Oral Capsule take 1 cap PO QHS * Quantity: 90 Refills: 0 JAMIE ZAVALA M.D. * Start : 23-Mar-2018 Active BD Pen Needle Mini U/F 31G X 5 MM use to inject insulin 5 times daily * Quantity: 5 Refills: 1 JAMIE ZAVALA M.D. * Start : 13-Sep-2013 Active 100 Unit Box Amiodarone HCl - 200 MG Oral Tablet 1 tab bid * Refills: 0 Active Lantus SoloStar 100 UNIT/ML Subcutaneous Solution Pen-injector INJECT 9 UNITS SUBCUTANEOUSLY IN THE MORNING AND THEN INJECT 5 UNITS SUBCUTANEOU SLY IN THE EVENING (MAX OF 30 UNITS PER DAY) * Quantity: 2 Refills: 0 JAMIE ZAVALA M.D. * Start : 11-Aug-2016 Active 5 x 3 ML Pen Accu-Chek FastClix Lancets check BS 5-6 times daily * Quantity: 6 Refills: 0 JAMIE ZAVALA M.D. * Start : 19-Mar-2017 Active 102 Unit Box Sensipar 30 MG Oral Tablet 1 tab 3 times a week * Refills: 0 Active HumaLOG KwikPen 100 UNIT/ML Subcutaneous Solution Pen-injector inject per ICR 1:15 g qAC, but 1:20 g on exercise days, and CF 1:60>180 mg/dL MDD:40 U * Quantity: 3 Refills: 0 JAMIE ZAVALA M.D. * Start : 22-May-2015 Active 5 x 3 ML Pen Accu-Chek Guide In Vitro Strip USE TO CHECK GLUCOSE FIVE TIMES DAILY TO SIX TIMES DAILY * Quantity: 600 Refills: 0 DANIEL GUERRERO M.D. * Start : 17-Apr-2016 Active Simvastatin 10 MG Oral Tablet TAKE 1 TABLET DAILY. * Refills: 0 Active Renvela 800 MG Oral Tablet Take 1 tablet 3 times daily; * Refills: 0 Active Plavix 75 MG Oral Tablet TAKE 1 TABLET DAILY. * Refills: 0 Active GlucaGen HypoKit 1 MG Injection Solution Reconstituted USE DIRECTED in case of severe hypoglycemia * Quantity: 1 Refills: 4 LAURENT WEAVER M.D. * Start : 06-Sep-2013 Active Aspirin 81 MG TABS TAKE 1 TABLET DAILY. * Refills: 0 Active Lasix 20 MG Oral Tablet TAKE 1 TABLET DAILY. * Refills: 0 Active Mexiletine HCl - 150 MG Oral Capsule * Refills: 0 Active Allergies and Adverse Reactions Name Dates [...] (finding) Vital Signs Date Test Result Details No Known Vitals to report Results Date Description Value Details Results not documented Plan of Care Name Dates Details Planned Observations Planned Goals not documented Planned Encounters Appointment; JAMIE ZAVALA M.D. On: 18-Apr-2019 14:00 Appointment; LAURENT WEAVER M.D. On: 13-May-2019 14:45 [...] Problem not documented On: 22-Dec-2017 9:30 Appointment; LATONIA PACHECO Encounter Diagnosis: Problem not documented On: 20-Jan-2018 [...]
--- OUTSIDE RECORDS SUMMARY | 2019-06-09 12:19 | XMS REPORT | Summary of Care ---
Author Author Kanchan Warren R.N. Unknown Address [facility] Phone Unavailable Care Team Providers Care Milk Pasteurizer Name Role Phone MEG Brooks, LAURENT Unavailable Unavailable Kelvin Campbell, Kanchan Unavailable Unavailable WYATT Brooks, JAMIE Unavailable Unavailable YOLANDA Brooks, DANIEL Unavailable Unavailable MEG RIVERA [place], LAURENT Benjamin Unavailable Unavailable BUCK RIVERA [place], NIRAJ RIVERA Unavailable Unavailable FELICIA BENNETT MD, [...] ulcer, unspecified laterality Status: Active Atherosclerosis of [place] coronary artery without angina pectoris (414.01, I25.10) [...] ONE TABLET BY MOUTH DAILY Quantity: 90 LAURENT WEAVER M.D. * Start : 30-May-2015 Active Aspirin 81 [...] Appointment; LAURENT WEAVER M.D. On: 13-May-2019 14:45 Interventions Provided Medication Changes* Accu-Chek FastClix Lancets - Renew * Accu-Chek Guide In Vitro Strip - Renew Instructions Name Dates Details Instructions not documented [...] Problem not documented On: 22-Dec-2017 9:30 Appointment; [facility], [facility] Encounter Diagnosis: Problem not documented On: 20-Jan-2018 [...]
--- OUTSIDE RECORDS SUMMARY | 2019-06-09 12:19 | XMS REPORT | Summary of Care ---
Author Author LUCAS Brooks, JAMIE Organization Unknown Address [facility] Phone Unavailable Care Team Providers Care Engineering Research Manager Name Role Phone MEG Brooks, LAURENT Unavailable Unavailable LUCAS Brooks, JAMIE Unavailable Unavailable MEG RIVERA [place], LAURENT Benjamin Unavailable Unavailable BUCK RIVERA [place], NIRAJ RIVERA Unavailable Unavailable FELICIA BENNETT MD, CARON Cm Unavailable Unavailable Jamie Schneider MD Unavailable Unavailable Unavailable Unavailable Functional Status Name [...] ulcer, unspecified laterality Status: Active Atherosclerosis of [place] coronary artery without angina pectoris (414.01, I25.10) Status: Active Bilateral leg ulcer (707.10, L97.919) Status: Active Congestive heart failure (428.0, I50.9) Status: Active Diabetes mellitus type 1 (250.01, E10.9) Status: Active Hyperlipidemia (272.4, E78.5) Status: Active Callus of foot (700, L84) Status: Active Hypothyroidism (244.9, E03.9) Status: Active End stage renal failure on dialysis (585.6, N18.6) Status: Active Uncontrolled type 1 diabetes mellitus with chronic kidney disease on chronic dialysis (250.43, E10.22) Status: Active Neuropathy, diabetic (250.60, E11.40) Status: Active Medications Name Dates Details Levothyroxine [...] 5 times daily * Quantity: 5 Refills: 0 JAMIE SCHNEIDER M.D. * Start : 13-Sep-2013 Active 100 Unit Box HumaLOG KwikPen 100 UNIT/ML Subcutaneous Solution Pen-injector inject per ICR 1:15 g qAC, but 1:20 g on exercise days, and CF 1:60>180 mg/dL MDD:40 U * Quantity: 3 Refills: 0 JAMIE SCHNEIDER M.D. * Start : 22-May-2015 Active 5 [...] TIMES DAILY * Quantity: 600 Refills: 0 JAMEI SCHNEIDER M.D. * Start : 17-Apr-2016 Active Carvedilol 3.125 MG Oral Tablet TAKE 1 TABLET TWICE DAILY WITH MEALS. * Quantity: 180 Refills: 1 Active Lasix 20 MG Oral Tablet TAKE 1 TABLET DAILY. * Refills: 0 Active Lantus SoloStar 100 UNIT/ML Subcutaneous Solution Pen-injector INJECT 9 UNITS SUBCUTANEOUSLY IN THE MORNING AND THEN INJECT 4 UNITS SUBCUTANEOU SLY IN THE EVENING (MAX OF 30 UNITS PER DAY) * Quantity: 2 Refills: 0 JAMIE SCHNEIDER M.D. * Start : 11-Aug-2016 Active 5 x 3 ML Pen Amiodarone HCl - 200 MG Oral Tablet 1 tab bid * Refills: 0 Active Mexiletine HCl - 150 MG Oral Capsule * Refills: 0 Active Accu-Chek FastClix Lancets check BS 5-6 times daily * Quantity: 6 Refills: 0 JAMIE SCHNEIDER M.D. * Start : 19-Mar-2017 Active 102 Unit Box Sensipar 30 MG Oral Tablet 1 tab 3 times a week * Refills: 0 Active Gabapentin 100 MG Oral Capsule take 1 cap PO QHS * Quantity: 90 Refills: 0 JAMIE SCHNEIDER M.D. * Start : 23-Mar-2018 Active Allergies [...] (finding) Vital Signs Date Test Result Details :03 Systolic blood pressure 101 mm[Hg] Status: Comments: Location: LUE; Position: Sitting Diastolic blood pressure 65 mm[Hg] Status: Comments: Location: LUE; Position: Sitting Body height 71 in Status: Weight 155.125 lb Status: Body mass index (BMI) [Ratio] 21.64 kg/m2 Status: Body surface area Derived from formula 1.89 m2 Status: Heart Rate 69 /min Status: Results Date Description Value Details :03 Glucose (Point of Care In Office) Glucose POC Lifescan 120 :04 [O] Hemoglobin A1c (in office) HEMOGLOBIN A1c 5.4 Plan of Care Name Dates Details Planned Observations Planned Goals not documented Planned Encounters Appointment; LAURENT WEAVER M.D. On: 13-May-2019 14:45 Appointment; JAMIE SCHNEIDER M.D. On: 19-Jul-2019 9:30 Interventions Provided Medication Changes* Accu-Chek Guide In Vitro Strip - Renew * BD Pen Needle Mini U/F 31G X 5 MM - Renew * Gabapentin 100 MG Oral Capsule - Renew * HumaLOG KwikPen 100 UNIT/ML Subcutaneous Solution Pen-injector - Renew * Lantus SoloStar 100 UNIT/ML Subcutaneous Solution Pen-injector - Renew Labs/Procedures/Imaging* [O] Hemoglobin A1c (in office); Done: 18 Apr 2019 * Glucose (Point of Care In Office); Done: 18 Apr 2019 Discussion/Summary* 54 yo M with DM1 on HD and has diabetic neuropathy here for f/u. * A1c is 5.4%, has trended down considerably with increase in hypoglycemia. Cont SMBG 6-8xs daily. Rec continuing Lantus 9 U in AM but decrease to 4 U in PM, should not be snacking every night to avoid hypoglycemia. Stressed using his Humalog ICR 1:15 g qAC and CF 1:60>180, which he reports still having the scale. If only having 15 g then take only 1 U not 4 U to avoid lows. He reported he understood. Cont ICR 1:20 g on days he exercises. Rec mnt and exercise. BP is good. Cont gabapentin 100 mg qHS PRN. F/U in 3 mos. Instructions Name Dates Details Instructions not documented Encounters Appointment; JAMIE SCHNEIDER M.D. Encounter Diagnosis: Problem not documented On: 18-Jun-2017 9:00 Appointment; JAMIE SCHNEIDER M.D. Encounter Diagnosis: Problem not documented On: 22-Sep-2017 9:00 Appointment; SYHANNE LAKHANI M.D. Encounter Diagnosis: Problem not documented On: 06-Oct-2017 11:30 Appointment; CARON DUARTE Encounter Diagnosis: Problem not documented On: 12-Nov-2017 14:45 Appointment; JAMIE SCHNEIDER M.D. Encounter Diagnosis: Problem not documented On: 22-Dec-2017 9:30 Appointment; LATONIA PACHECO Encounter Diagnosis: Problem not documented On: 20-Jan-2018 8:45 Appointment; JAMIE SCHNEIDER M.D. Encounter Diagnosis: Problem not documented On: 23-Mar-2018 9:00 Appointment; CARON DUARTE Encounter Diagnosis: Problem not documented On: 22-Apr-2018 14:00 Appointment; LAURENT WEAVER M.D. Encounter Diagnosis: Problem not documented On: 04-May-2018 11:00 Appointment; JAMIE SCHNEIDER M.D. Encounter Diagnosis: Problem not documented On: 24-Jun-2018 9:00 Appointment; JAMIE SCHNEIDER M.D. Encounter Diagnosis: Problem not documented On: 28-Sep-2018 9:00 Appointment; CARON DUARTE Encounter Diagnosis: Problem not documented On: 21-Oct-2018 14:00 Appointment; LAURENT WEAVER M.D. Encounter Diagnosis: Problem not documented On: 12-Nov-2018 13:30 Appointment; JAMIE SCHNEIDER M.D. Encounter Diagnosis: Problem not documented On: 18-Apr-2019 14:00
--- OUTSIDE RECORDS SUMMARY | 2019-06-09 12:19 | XMS REPORT | Summary of Care ---
Author Author [facility] Address [address] [place] [address] Phone Unavailable Care Team Providers Care Practice Consultant Name Role Phone MEG Brooks, LAURENT Unavailable Unavailable WYATT Brooks, JAMIE Unavailable Unavailable YOLANDA Brooks, DANIEL Unavailable Unavailable MEG RIVERA [place], LAURENT Benjamin Unavailable Lora JANE MD [place], NIRAJ RIVERA Unavailable Unavailable FELICIA BENNETT MD, [...] ulcer, unspecified laterality Status: Active Atherosclerosis of [place] coronary artery without angina pectoris (414.01, I25.10) [...] N18.6) Status: Active Medications Name Dates Details Aspirin 81 MG TABS TAKE 1 TABLET DAILY. Active GlucaGen HypoKit 1 MG Injection Solution Reconstituted USE DIRECTED in case of severe hypoglycemia * Quantity: 1 Refills: 4 LAURENT WEAVER M.D. * Start : 06-Sep-2013 Active Levothyroxine Sodium 88 MCG Oral Tablet TAKE ONE TABLET BY MOUTH DAILY * Quantity: 90 Refills: 1 LAURENT WEAVER M.D. * Start : 30-May-2015 Active BD Pen Needle Mini U/F 31G [...] 1 TABLET DAILY. * Refills: 0 Active Simvastatin 10 MG Oral Tablet TAKE 1 TABLET DAILY. * Refills: 0 Active Renvela 800 MG Oral Tablet Take 1 tablet 3 times daily; * Refills: 0 Active Carvedilol 3.125 MG Oral Tablet TAKE 1 TABLET TWICE DAILY WITH MEALS. * Quantity: 180 Refills: 1 Active Lasix 20 MG Oral Tablet TAKE 1 TABLET DAILY. * Refills: 0 Active Mexiletine HCl - 150 MG Oral Capsule * Refills: 0 Active Amiodarone HCl - 200 MG Oral Tablet 1 tab bid * Refills: 0 Active Sensipar 30 MG Oral Tablet 1 tab 3 times a week * Refills: 0 Active Gabapentin 100 MG Oral Capsule take 1 cap PO QHS * Quantity: 90 Refills: 0 JAMIE ZAVALA M.D. * Start : 23-Mar-2018 Active Accu-Chek FastClix Lancets check BS 5-6 times daily * Quantity: 6 Refills: 0 JAMIE ZAVALA M.D. * Start : 19-Mar-2017 Active 102 Unit Box Accu-Chek Guide In Vitro Strip USE TO CHECK GLUCOSE FIVE TIMES DAILY TO SIX TIMES DAILY * Quantity: 600 Refills: 0 DANIEL GUERRERO M.D. * Start : 17-Apr-2016 Active Lantus SoloStar 100 UNIT/ML Subcutaneous Solution Pen-injector INJECT 9 UNITS SUBCUTANEOUSLY IN THE MORNING AND THEN INJECT 5 UNITS SUBCUTANEOU SLY IN THE EVENING (MAX OF 30 UNITS PER DAY) * Quantity: 2 Refills: 0 JAMIE ZAVALA M.D. Start : 11-Aug-2016 Active 5 x 3 ML Pen Allergies and Adverse Reactions Name Dates Details [...] Details - Status: Name Dates Details Never smoker Vital Signs Date Test Result Details No [...] M.D. Encounter Diagnosis: Problem not documented On: 19-Mar-2017 9:30 Appointment; LAURENT WEAVER M.D. Encounter Diagnosis: Problem not documented On: 31-Mar-2017 9:45 Appointment; JAMIE ZAVALA M.D. Encounter Diagnosis: Problem [...]
--- OUTSIDE RECORDS SUMMARY | 2019-06-09 12:19 | XMS REPORT | Summary of Care ---
Author Author YOLANDA Brooks, DANIEL Garza Unknown Address Unknown Phone Unavailable Care Team Providers Care Mass Spectrometry Manager Name Role Phone MEG Brooks, LAURENT Unavailable Unavailable Kelvin Campbell, Kanchan Unavailable Unavailable WYATT Brooks, JAMIE Unavailable Unavailable YOLANDA Brooks, DANIEL Unavailable Unavailable MEG RIVERA [place], LAURENT Benjamin Unavailable Unavailable BUCK RIVERA [place], NIRAJ RIVERA Unavailable Unavailable FELICIA BENNETT MD, [...] ulcer, unspecified laterality Status: Active Atherosclerosis of [place] coronary artery without angina pectoris (414.01, I25.10) [...]
--- OUTSIDE RECORDS SUMMARY | 2019-06-09 12:19 | XMS REPORT | Summary of Care ---
Author Author Malika Martel M.A. Organization Unknown Address Unknown Phone Unavailable Care Team Providers Care Chemistry Intern Name Role Phone Malika Martel M.A. Unavailable Unavailable MEG Brooks, LAURENT Unavailable Unavailable WYATT Brooks, JAMIE Unavailable Unavailable MEG RIVERA [place], LAURENT Benjamin Unavailable Unavailable BUCK RIVERA [place], NIRJA RIVERA Unavailable Unavailable FELICIA MARTEL MD, CARON Cm Unavailable Unavailable Wyatt RIVERA, [...] ulcer, unspecified laterality Status: Active Atherosclerosis of [place] coronary artery without angina pectoris (414.01, I25.10) [...] TAKE ONE TABLET BY MOUTH DAILY Quantity: 30 MEG Barth.Aba, LAURENT * Start : 30-May-2015 Active Aspirin 81 MG TABS TAKE 1 TABLET DAILY. * Refills: 0 Active GlucaGen HypoKit 1 MG Injection Solution Reconstituted USE DIRECTED in case of severe hypoglycemia * Quantity: 1 Refills: 4 MEG Brooks, LAURENT * Start : 06-Sep-2013 Active BD Pen Needle Mini U/F 31G X 5 MM use to inject insulin 5 times daily * Quantity: 5 Refills: 0 JAMIE ZAVALA M.D. * Start : 13-Sep-2013 [...] TIMES DAILY * Quantity: 600 Refills: 0 JAMIE ZAVALA M.D. * Start : 17-Apr-2016 Active Carvedilol [...] Planned Encounters Appointment; LAURENT WEAVER M.D. On: 16-Jun-2019 9:30 Appointment; JAMIE ZAVALA M.D. On: 19-Jul-2019 9:30 Interventions Provided Medication Changes* Levothyroxine Sodium 88 MCG Oral Tablet - Renew Instructions Name Dates Details Instructions [...]
--- OUTSIDE RECORDS SUMMARY | 2019-06-09 12:19 | XMS REPORT | Summary of Care ---
Author Author [facility] Address [address] [place] [address] Phone Unavailable Care Team Providers Care Buttonhole Maker Hand Name Role Phone MEG Brooks, LAURENT Unavailable Unavailable WYATT Brooks, JAMIE Unavailable Unavailable YOLANDA Brooks, DANIEL Unavailable Unavailable MEG RIVERA [place], LAURENT Benjamin Unavailable Lora JANE MD [place], NIRAJ RIVERA Unavailable Unavailable FELICIA BENNETT MD, [...] ulcer, unspecified laterality Status: Active Atherosclerosis of [place] coronary artery without angina pectoris (414.01, I25.10) [...] (finding) Vital Signs Date Test Result Details [id number] Systolic blood pressure 101 mm[Hg] Status: Comments: Location: E; Position: Sitting Diastolic blood pressure 65 mm[Hg] [...]
--- OUTSIDE RECORDS SUMMARY | 2019-06-09 12:19 | XMS REPORT | Summary of Care ---
Author Author WYATT Brooks, JAMIE Garza Unknown Address [facility] Phone Unavailable Care Team Providers Care Electric Scoop Operator Name Role Phone MEG Brooks, LAURENT Unavailable Unavailable Kelvin Campbell, Kanchan Unavailable Unavailable WYATT Brooks, JAMIE Unavailable Unavailable YOLANDA Brooks, DANIEL Unavailable Unavailable MEG RIVERA [place], LAURENT Benjamin Unavailable Unavailable BUCK RIVERA [place], NIRAJ RIVERA Unavailable Unavailable FELICIA BENNETT MD, [...] ulcer, unspecified laterality Status: Active Atherosclerosis of [place] coronary artery without angina pectoris (414.01, I25.10) [...]
--- OUTSIDE RECORDS SUMMARY | 2019-06-09 12:19 | XMS REPORT | Summary of Care ---
Author Author [facility] Address [address] [place] [address] Phone Unavailable Care Team Providers Care Accounts Receivable Accountant Name Role Phone MEG Brooks, LAURENT Unavailable Unavailable WYATT Brooks, JAMIE Unavailable Unavailable YOLANDA Brooks, DANIEL Unavailable Unavailable MEG RIVERA [place], LAURENT Benjamin Unavailable Lora JANE MD [place], NIRAJ RIVERA Unavailable Unavailable FELICIA BENNETT MD, [...] ulcer, unspecified laterality Status: Active Atherosclerosis of [place] coronary artery without angina pectoris (414.01, I25.10) [...] TABLET BY MOUTH DAILY Quantity: 90 MEG Brooks, LAURENT * Start : 30-May-2015 Active Aspirin 81 MG TABS TAKE 1 TABLET DAILY. * Refills: 0 Active GlucaGen HypoKit 1 MG Injection Solution Reconstituted USE DIRECTED in case of severe hypoglycemia * Quantity: 1 Refills: 4 MEG Brooks, LAURENT * Start : 06-Sep-2013 Active Carvedilol 3.125 MG Oral Tablet TAKE 1 TABLET TWICE DAILY WITH MEALS. * Quantity: 180 Refills: 1 Active Accu-Chek FastClix Lancets check BS 5-6 times daily * Quantity: 6 Refills: 0 JAMIE ZAVALA M.D. * Start : 19-Mar-2017 Active 102 Unit Box Lantus SoloStar 100 UNIT/ML Subcutaneous Solution Pen-injector [...] GUERRERO M.D. * Start : 17-Apr-2016 Active Lasix 20 MG Oral Tablet TAKE 1 TABLET DAILY. * Refills: 0 Active Amiodarone HCl - 200 MG Oral Tablet 1 tab bid * Refills: 0 Active Mexiletine HCl - 150 MG Oral Capsule * Refills: 0 Active Sensipar 30 MG [...] MDD:40 U * Quantity: 3 Refills: 0 WYATT M.D., JAMIE * Start : 22-May-2015 Active 5 x 3 ML Pen Plavix 75 MG Oral Tablet TAKE 1 TABLET DAILY. * Refills: 0 Active Renvela 800 MG Oral Tablet Take 1 tablet 3 times daily; * Refills: 0 Active Simvastatin 10 MG Oral Tablet TAKE 1 TABLET DAILY. * Refills: 0 Active Allergies and Adverse [...]
[2019-06-09 12:56] LABS: BASOPHILS # (AUTO) 0.1 (0.0-0.1); EOSINOPHILS # (AUTO) 0.1 (0.0-0.4); EOSINOPHILS % 1.8 % (0.0-6.0); HEMATOCRIT 34.7 % (38.2-49.6); HEMOGLOBIN 10.3 g/dL (14.0-18.0); LYMPHOCYTES # (AUTO) 0.4 (1.0-3.2); LYMPHOCYTES % 8.4 % (18.0-39.1); MEAN CORPUSCULAR HEMOGLOBIN 30.5 pg (28-32); MEAN CORPUSCULAR HGB CONC 29.7 g/dL (31-35); MEAN CORPUSCULAR VOLUME 102.7 fL (81-99); MONOCYTES # (AUTO) 0.5 (0.2-0.8); MONOCYTES % 10.6 % (4.4-11.3); NEUTROPHILS % 77.8 % (38.7-80.0); PLATELET COUNT 112 x10e3/uL (140-360); RED BLOOD COUNT 3.38 x10e6/uL (4.3-5.7)
[2019-06-09 13:14] LABS: ALBUMIN 3.2 g/dL (3.5-5.0); ALBUMIN/GLOBULIN RATIO 0.9 (0.8-2.0); ANION GAP 14.9 mmol/L (8-16); CALCIUM 8.9 mg/dL (8.4-10.2); CREATININE, SERUM 4.6 mg/dL (0.72-1.25); POTASSIUM 4.9 mmol/L (3.5-5.1)
[2019-06-09 13:21] LABS: CREATINE KINASE MB 4.9 ng/mL (0-5.0)
[2019-06-09 15:04] LABS: INR 1.22; PROTHROMBIN TIME 16.2 seconds (11.9-14.5)
[2019-06-09 15:05] LABS: PARTIAL THROMBOPLASTIN TIME 39.4 seconds (23.8-35.5)
--- NOTE | 2019-06-09 16:00 | Consultation ---
DATE OF CONSULTATION: 06/09/2019 HISTORY OF PRESENT ILLNESS: A 54-year-old gentleman, who has underlying history of end-stage renal disease on dialysis, has a right upper arm AV fistula, history of hypothyroidism, type 2 diabetes, coronary artery disease, status post PCI and stenting, maintained on aspirin and Plavix at home, where finished his dialysis yesterday and then when he went home, he urinated and urinated mike blood. This happened one more time during the night and this morning. He has never had hematuria before. Denies any history of prostate issues. Denies any history of kidney stone disease. Currently lying supine, in no apparent distress. Denies any abdominal pain, nausea, vomiting, headache, fever, or chills. PAST MEDICAL HISTORY: Diabetes, diabetic kidney disease, end-stage renal disease, peripheral neuropathy, retinopathy, history of hypertension, and hyperlipidemia. He has coronary artery disease, status post implantable cardioverter-defibrillator, history of hypothyroidism. SOCIAL HISTORY: The patient does not smoke or drink. FAMILY HISTORY: Significant for hypertension. PHYSICAL EXAMINATION: GENERAL: The patient awake, alert, lying supine, in no apparent distress. VITAL SIGNS: Blood pressure 114/78, pulse rate 65, and respiratory rate 18. HEAD AND NECK: Cornea clear. Oral mucosa moist. LUNGS: Relatively clear. No rales or rhonchi. HEART: S1 and S2 audible. ABDOMEN: Otherwise soft and nontender. No apparent visceromegaly. EXTREMITIES: Lower extremity examination, no edema. IMPRESSION AND PLAN: Gross hematuria. Dr. Wallace has been consulted, will likely end up with cystoscopy, retrograde pyelogram. Defer workup to Dr. Wallace. Today's lab; white count 5, hemoglobin 10.3. No sign of infection. Sodium 141, potassium 4.9, creatinine 4.6. LFTs within normal range. I will send a PT/INR as well as a PTT. Arrange for dialysis tomorrow. Renal diet. Please see orders. MD PAUL Ortiz/ANGEL /[id number]
[2019-06-09 16:15] LABS: CLARITY,URINE CLOUDY (CLEAR); COLOR,URINE RED (YELLOW); LEUKOCYTE ESTERASE ,URINE 1+ (NEGATIVE); NITRITE,URINE NEGATIVE (NEGATIVE)
[2019-06-09 16:16] LABS: BILIRUBIN,URINE SMALL (NEGATIVE); KETONES,URINE TRACE (NEGATIVE); PROTEIN,URINE DIPSTICK >=300 (NEGATIVE); URINE UROBILINOGEN 1 mg/dL (0.2 - 1)
[2019-06-09 16:34] LABS: BACTERIA,URINE RARE /HPF; EPITHELIAL CELLS,URINE RARE /LPF
[2019-06-09] MEDS ORDERED: SEVELAMER CARBONATE PO (16:39)
[2019-06-09] MEDS ORDERED: AMIODARONE HCL200 MG PO (16:39)
[2019-06-09] MEDS ORDERED: LEVOTHYROXINE88 MCG PO (16:39)
[2019-06-09] MEDS ORDERED: ASPIRIN81 MG PO (16:39)
[2019-06-09] MEDS ORDERED: CLOPIDOGREL75 MG PO (16:39)
[2019-06-09] MEDS ORDERED: GABAPENTIN100 MG PO (16:39)
[2019-06-09] MEDS ORDERED: LANTUS 3ML100 UNITS/ SQ ×2 (16:39)
[2019-06-09] MEDS ORDERED: MEXILETINE HCL150 MG PO (16:39)
[2019-06-09] MEDS ORDERED: FUROSEMIDE40 MG PO (16:39)
[2019-06-09] MEDS ORDERED: CARVEDILOL3.125 MG PO (16:39)
[2019-06-09 16:49] VITALS: BP 108/76
[2019-06-09 16:50] VITALS: BP 108/76
--- NOTE | 2019-06-09 16:50 | NUR ---
Received patient from ER to room 289. Patient is in stable condition. Oriented to room and policies. Admission and initial history completed and documented. Call light within reach. Bed in the lowest position.
[2019-06-09 17:00] VITALS: BP 108/76
--- NOTE | 2019-06-09 17:46 | NUR ---
Paged Dr. Pena to ask if dialysis has been set up or if nurse has to call to set up. Awaiting delinquency prevention officer back.
--- NOTE | 2019-06-09 17:50 | NUR ---
Paged Dr. Mendoza to get a diet change order due to patient being a ESRD patient. Also need to let him know about continuing home medications.
[2019-06-09] MEDS ORDERED: DEXTROSE 50% SYRINGE 50 ML IV PRN (18:00)
[2019-06-09] MEDS: FUROSEMIDE 40 MG TAB PO SCH (18:00)
--- NOTE | 2019-06-09 18:09 | NUR ---
Spoke to Dr. Wallace in regards to patient taking Plavix and admitting wanting to continue, per MD patient is bleeding, hold medication for now.
--- NOTE | 2019-06-09 19:04 | NUR ---
Dr. Silverio returned call and stated that according to labs, patient does not need to be dialyzed today. Patient can be dialyzed tomorrow after procedure if labs look good. Also received order for BMP in AM.
--- NOTE | 2019-06-09 19:24 | NUR ---
Called [facility] to notify that patient needs HD tomorrow morning, spoke to Sima.
--- NOTE | 2019-06-09 19:26 | NUR ---
Bedside shift report given to oncoming nurse. Patient is resting in recliner. No acute distress noted. Call light within reach. Bed in the lowest position.
--- NOTE | 2019-06-09 20:26 | Consultation ---
DATE OF CONSULTATION: 06/09/2019 Urology Consultation REASON FOR CONSULTATION: Gross hematuria. HISTORY OF PRESENT ILLNESS: Ken Ragland is a 54-year-old man with end-stage renal disease. He is on Thursday, Thursday, and Thursday early shift hemodialysis. The patient starting yesterday noted gross hematuria every time he voids. He thinks it is pure blood with a very little urine. His ordinary urine volume was approximately one-half what it was prior to dialysis. The patient denies previous hematuria, dysuria, urinary tract infections, or urolithiasis. He has never seen a urologist. The patient does take aspirin and Plavix. PAST MEDICAL AND SURGICAL HISTORY: 1. End-stage renal disease, on hemodialysis. 2. Hypertension. 3. Diabetes mellitus. 4. Hypercholesterolemia. 5. Congestive heart failure. 6. Coronary artery disease, status post PTCA and stent x2. 7. Status post implantation of pacemaker and defibrillator. 8. Status post excision of a thyroid nodule. FAMILY MEDICAL HISTORY: Noncontributory to the active urological problems. ALLERGIES: NONE KNOWN. CURRENT MEDICATIONS: Please refer to the MAR. SOCIAL HISTORY: The patient denies smoking, ethanol, and drug use. The patient is a disabled product support representative. REVIEW OF SYSTEMS: Discussed as above in history of present illness and past medical history, otherwise negative for all systems. PHYSICAL EXAMINATION: GENERAL: Very pleasant 54-year-old man, walking around the room, in no apparent distress. VITAL SIGNS: He is currently afebrile. Vital signs are currently stable. ABDOMEN: Soft, nondistended, nontender without costovertebral angle tenderness. Kidneys not palpable without hepatosplenomegaly. No obvious evidence of hernia. GENITOURINARY: Testes descended bilaterally. Testes and epididymides bilaterally palpably normal. The patient has a normal circumcised male phallus with normal meatus without any lesion. Digital rectal examination is deferred at the present time. For the remaining physical examination systems, please refer to the admission history and physical in the ERT sheet. LABORATORY STUDIES: White blood cell count is 5100, hemoglobin 10.3, and platelets low at 112,000. The patient's creatinine is 4.6, potassium is within normal limits. PT is slightly elevated at 16.2, INR is 1.22, PTT slightly elevated at 39.4. Urinalysis significant for 11 to 20 rbc's, 6 to 10 wbc's, rare epithelial cells, and rare bacteria. The patient does have proteinuria greater than 300. Urine culture is pending. No radiology tests have yet to be done as part of this workup. ASSESSMENT: 1. Persistent gross hematuria for 2 days. 2. End-stage renal disease, on hemodialysis. 3. Anemia. 4. Thrombocytopenia. 5. Coagulopathy, that is mild. 6. Proteinuria. 7. Pyuria. PLAN: 1. Urine culture and sensitivity are pending. 2. The patient needs to have cystoscopy and retrograde ureteropyelograms. We will add him to the surgery schedule tomorrow. 3. Hold the patient's aspirin and Plavix due to the fact that he is bleeding. 4. I will order a CT to image the urinary tract. 5. Ongoing urological followup is a must. Thank you much for involving us in the care of your patient. We will be happy to follow him along with you as well as an outpatient. William MD Rodrigo [facility]/MODL /[id number] cc: Nat Castaneda MD
[2019-06-09 20:31] VITALS: BP 108/69
--- NOTE | 2019-06-09 20:40 | Diagnostic Imaging Report ---
EXAM: CT Abdomen and Pelvis WITHOUT contrast INDICATION: ^STONE PROTOCOL. ESRD. GROSS HEMATURIA. ^[id number] ^[id number] COMPARISON: None. TECHNIQUE: Abdomen and pelvis were scanned utilizing a multidetector helical scanner from the lung base to the pubic symphysis without administration of IV contrast. Absence of intravenous contrast decreases sensitivity for detection of focal lesions and vascular pathology. Coronal and sagittal reformations were obtained. Routine protocol was performed. IV CONTRAST: None ORAL CONTRAST: None. COMPLICATIONS: None RADIATION DOSE: Total DLP: 251.01 mGy*cm Estimated effective dose: (DLP x 0.015 x size factor) mSv CTDIvol has been reviewed. It is below the limits set by the Radiation Protocol Committee (RPC). FINDINGS: LINES and TUBES: None. LOWER THORAX: Cardiomegaly. Partially seen distal leads of cardiac device and atherosclerotic calcification of coronary arteries and stents. Moderate right pleural effusion. Bibasilar atelectasis/scarring. Bilateral patchy and groundglass opacities. HEPATOBILIARY: Unenhanced liver is unremarkable. No biliary ductal dilation. GALLBLADDER: Suspected sludge or gallstones. Mild wall thickening. SPLEEN: No splenomegaly. PANCREAS: Atrophic. No focal masses or ductal dilatation. ADRENALS: No adrenal nodules KIDNEYS/URETERS: Atrophic kidneys. No hydronephrosis. Limited for evaluation of renal parenchyma without intravenous contrast. No stones. Extensive renal vascular calcifications. GI TRACT: No evidence of bowel obstruction. Appendix is normal. Mildly patulous distal esophagus. Mild to moderately distended stomach with ingested material and air. Gaseous distention of redundant sigmoid colon. PELVIC ORGANS/BLADDER: Bladder is not distended, demonstrating wall thickening. Pelvic phleboliths and seminal vesicle calcifications. LYMPH NODES: No lymphadenopathy. VESSELS: Limited evaluation without intravenous contrast. Moderate aortoiliac atherosclerotic disease. Severe peripheral arteriosclerosis. PERITONEUM / RETROPERITONEUM: No free air. Small volume dependent ascites. BONES: Unremarkable. Left iliac sclerotic focus, likely a bone island. SOFT TISSUES: Small bilateral fat-containing inguinal hernia. IMPRESSION: 1. Cardiomegaly and moderate size right pleural effusion. Bilateral lower lobe groundglass and patchy airspace opacities, representing edema and/or pneumonia in the appropriate clinical context. 2. Atrophic kidneys. No nephrolithiasis or evidence of obstructive urolithiasis. Severe bilateral renal arterial calcifications. 3. Small volume dependent ascites. 4. Bladder wall thickening, could be due to underdistention or cystitis in the appropriate clinical context. 5. Mild gallbladder wall thickening and suspected sludge or cholelithiasis. No gallbladder distention or pericholecystic fluid. Signed by: Dr. Fortino Pulido MD on 06/09/2019 8:36 PM
[2019-06-09] MEDS ORDERED: NON-FORMULARY MEDICATION (Simvastatin 10 MG) PO SCH (21:00)
[2019-06-09] MEDS: INSULIN LISPRO 100 UNIT/1 ML 3ML VIAL SQ SCH (21:00)
[2019-06-09] MEDS ORDERED: GABAPENTIN 100 MG CAP PO PRN (21:00)
[2019-06-09] MEDS: CARVEDILOL 3.125 MG TAB PO SCH (22:02)
[2019-06-09] MEDS: SIMVASTATIN 20 MG TAB PO SCH (22:03)
[2019-06-09] MEDS: MEXILETINE HCL 150 MG PO SCH (22:03)
[2019-06-10] VITALS (8 sets, daily range): BP systolic 108–130; BP diastolic 66–83
[2019-06-10] MEDS: AMIODARONE HCL 200 MG TAB PO SCH (04:38)
[2019-06-10] MEDS: CARVEDILOL 3.125 MG TAB PO SCH (04:38)
[2019-06-10] MEDS: FUROSEMIDE 40 MG TAB PO SCH ×2 (04:39→17:28)
[2019-06-10] MEDS: LEVOTHYROXINE SODIUM 88 MCG TAB PO SCH (05:27)
[2019-06-10] MEDS: MEXILETINE HCL 150 MG PO SCH ×2 (05:27→14:00)
[2019-06-10] MEDS: INSULIN GLARGINE 100 UNITS/ML VIAL SQ SCH ×3 (05:34→17:39)
[2019-06-10] MEDS ORDERED: NON-FORMULARY MEDICATION (Insulin Glargine (Lantus 3ML Pen) 8 UNITS) SQ SCH (06:00)
[2019-06-10 06:33] LABS: BASOPHILS % 0.4 % (0.0-1.0); EOSINOPHILS # (AUTO) 0.2 (0.0-0.4); EOSINOPHILS % 1.8 % (0.0-6.0); HEMATOCRIT 34.6 % (38.2-49.6); HEMOGLOBIN 10.5 g/dL (14.0-18.0); LYMPHOCYTES # (AUTO) 0.3 (1.0-3.2); LYMPHOCYTES % 4.1 % (18.0-39.1); MEAN CORPUSCULAR HEMOGLOBIN 30.9 pg (28-32); MEAN CORPUSCULAR HGB CONC 30.3 g/dL (31-35); MEAN CORPUSCULAR VOLUME 101.8 fL (81-99); MONOCYTES # (AUTO) 0.7 (0.2-0.8); MONOCYTES % 8.1 % (4.4-11.3); NEUTROPHILS # (AUTO) 7.1 (2.1-6.9); NEUTROPHILS % 85.2 % (38.7-80.0); PLATELET COUNT 115 x10e3/uL (140-360); RED CELL DISTRIBUTION WIDTH 17.7 % (11.7-14.4)
[2019-06-10 07:06] LABS: ALBUMIN 3.2 g/dL (3.5-5.0); ANION GAP 15.4 mmol/L (8-16); CALCIUM 9.3 mg/dL (8.4-10.2); CREATININE, SERUM 5.52 mg/dL (0.72-1.25); POTASSIUM 4.4 mmol/L (3.5-5.1)
[2019-06-10] MEDS: INSULIN LISPRO 100 UNIT/1 ML 3ML VIAL SQ SCH ×4 (07:30→21:00)
[2019-06-10] MEDS: SEVELAMER CARBONATE 800 MG TAB PO SCH ×3 (07:55→17:28)
[2019-06-10 07:57] LABS: EOSINOPHILS % (MANUAL) 1 % (0-7); LYMPHOCYTES % (MANUAL) 8 % (19-48); MONOCYTES % (MANUAL) 3 % (3.4-9.0); NEUTROPHILS % (MANUAL) 88 % (40-74)
[2019-06-10 07:58] LABS: ANISOCYTOSIS SLIGHT; OVALOCYTES FEW
[2019-06-10 07:59] LABS: PLATELET ESTIMATE SLIGHTLY DECREASED; PLATELET MORPHOLOGY COMMENT NORMAL; RBC MORPHOLOGY COMMENT NORMAL
[2019-06-10] MEDS ORDERED: SEVELAMER CARBONATE 800 MG PO SCH (08:00)
--- NOTE | 2019-06-10 08:00 | NUR ---
The pt. is maintained n p o for surgery this morning and will dialyze post surgery.
[2019-06-10] MEDS ORDERED: SODIUM CHLORIDE 0.9% 500ML 500 ML ONE (08:14)
--- NOTE | 2019-06-10 08:14 | NUR ---
To surgery via stretcher.
[2019-06-10] MEDS ORDERED: IOPAMIDOL 300MG/ML 50ML INFUS..BTL IV ONE (08:29)
[2019-06-10] MEDS ORDERED: B&O 60MG R/S 60 MG SUPP PR ONE (08:29)
[2019-06-10] MEDS ORDERED: IOPAMIDOL 200 MG/ML 20 ML VIAL IT ONE (08:29)
--- NOTE | 2019-06-10 11:30 | NUR ---
Returned from surgery in bed awake and without comp of pain. The pt is to dialyze this afternoon and needs consenting.
--- NOTE | 2019-06-10 11:42 | Consultation ---
DATE OF CONSULTATION: 06/10/2019 Cardiology Consultation CONSULTING PHYSICIAN: Twin Burkett MD, Interventional Cardiology REASON FOR CONSULTATION: Management of cardiovascular disease. HISTORY OF PRESENT ILLNESS: Ken presents with hematuria. He has severe chronic systolic heart failure with dilated cardiomyopathy, coronary artery disease with prior LAD stent, diabetes mellitus, end-stage renal disease on scheduled dialysis and dyslipidemia, history of ventricular tachycardia. He has no current complaints. Denies chest pain or shortness of breath. REVIEW OF SYSTEMS: Twelve-system review negative except for as noted above. PAST MEDICAL HISTORY: As per HPI. SOCIAL HISTORY: Negative for smoking, alcohol, or drugs. FAMILY HISTORY: Noncontributory. PHYSICAL EXAMINATION: VITAL SIGNS: Temperature 98.5, heart rate 70, blood pressure 113/66, respiratory rate 16, and O2 saturation 94%. GENERAL: In no acute distress. Alert. NECK: No JVD. CHEST: Clear to auscultation. CARDIOVASCULAR: Regular rate and rhythm. Normal S1, S2. No S3, no S4. Systolic ejection murmur. ABDOMEN: Soft. Bowel sounds positive. EXTREMITIES: No edema. CARDIOVASCULAR MEDICATIONS: Reviewed. Carvedilol 3.125 mg every 12 hours, furosemide 80 mg b.i.d., simvastatin 10 mg at bedtime, amiodarone 200 mg daily, antiplatelets on hold. STUDIES: Reviewed. Potassium 4.4, bicarbonate 30, creatinine 5.5, and glucose 142. White blood cells 8.3, hemoglobin 10.5, platelets 115. INR 1.22. PT 16.2, PTT 39.4. AST 13, ALT 13, alkaline phosphatase 122. ASSESSMENT AND PLAN: A 54-year-old man presents with: 1. Hematuria, for which Urology is evaluating. Chronic severe systolic heart failure, hypertension, diabetes, dyslipidemia, coronary artery disease, history of ventricular tachycardia, anemia, end-stage renal disease. Recommend continue beta-yesi and amiodarone. 2. Hold antiplatelets for now. 3. Elevated risk for adverse cardiovascular outcomes with noncardiac surgery. At the current time, no unstable cardiac conditions identified. Twin Burkett MD [facility]/MODL /[id number]
[2019-06-10] MEDS ORDERED: INSULIN GLARGINE SQ SCH (17:00)
[2019-06-10] MEDS: B&O 60MG R/S 60 MG SUPP PR PRN (17:29)
--- NOTE | 2019-06-10 19:20 | NUR ---
RECEIVED THE PATIENT IN REPORT.LYEING IN THE BED.ON CBI.PINK COLORED URINE DRAINING.BED LOCKED AND IN LOWEST POSITION.STABLE CONDITION.
[2019-06-10] MEDS ORDERED: DEXAMETHASONE SOD PHOS INJ 4 MG/ML VIAL ONE (19:39)
[2019-06-10] MEDS ORDERED: LIDOCAINE HCL 2% LOCAL INJ 5 ML SDV VIAL INJ ONE (19:39)
[2019-06-10] MEDS ORDERED: SEVOFLURANE INHAL SOLN 250 ML PEN BTL ONE (19:39)
[2019-06-10] MEDS ORDERED: PROPOFOL IV EMULSION 10 MG/ML 20 ML VIAL ONE (19:39)
[2019-06-10] MEDS ORDERED: ONDANSETRON HCL INJ 2MG/ML 2ML 2 MG/ML VIAL ONE (19:39)
--- NOTE | 2019-06-10 20:15 | NUR ---
ASSESSMENT DONE.NO RESP.DISTRESS.DIALYSIS STARTED.
--- NOTE | 2019-06-10 21:09 | History and Physical ---
HISTORY OF PRESENT ILLNESS: The patient is a 54-year-old male, who has a past medical history positive for coronary artery disease, status post stent in the past; history of end-stage renal disease, on dialysis; history of diabetes mellitus type 2; history of congestive heart failure, implantable defibrillator; hypertension; who came to the hospital because he was having blood in the urine. The patient underwent cystoscopy done by Dr. Wallace, which showed some blood coming from the right ureter, clots in the bladder, stent was placed in the right kidney, and he was placed under observation. REVIEW OF SYSTEMS: CARDIOVASCULAR: No chest pain or palpitation. RESPIRATORY: No shortness of breath. No cough. GASTROINTESTINAL: No nausea or vomiting. No diarrhea. GENITOURINARY: He did see blood in the urine. ALLERGIES: NOT ALLERGIC TO ANY MEDICATION. SOCIAL HISTORY: He does not smoke, does not drink. MEDICAL HISTORY: As I said, end-stage renal disease, on dialysis Thursday, Thursday, Thursday; coronary artery disease, status post stent placement; diabetes mellitus; hypertension. PHYSICAL EXAMINATION: HEART: Showed regular rhythm. Normal S1 and S2 sound. LUNGS: Clear bilaterally. ABDOMEN: Soft. EXTREMITIES: Show no evidence of cyanosis, edema, or trauma. He has a Earl catheter, which is draining bloody urine. He is connected to continuous bladder irrigation system. LABORATORY DATA: On the blood work we have the following numbers. On the CBC; white blood count 9.30, hemoglobin 10.5, hematocrit 34.6, and platelet count of 115,000. On the BMP; sodium 141, potassium 4.4, chloride 100, CO2 of 30, BUN 41, creatinine 5.52, GFR is 11, blood glucose is 103, calcium 9.3, total bilirubin 0.9, AST 13, ALT 13, alkaline phosphatase 122, total protein 6.5, albumin 3.2, globulin is 3.3. PT 16.2, INR 1.22, PTT 39.4. Urinalysis of course showed ketones, leukocytes, red blood cells, and white cells. Urine culture has been sent and the report is pending. So far, no growth. Also, he did have a CT of the abdomen and pelvis, which showed cardiomegaly, moderate right pleural effusion. Bilateral lower lobe ground-glass and patchy air space opacity representing pneumonia in the appropriate clinical context. Atrophic kidneys. No nephrolithiasis or evidence of obstructive urolithiasis. Severe bilateral renal artery calcifications. Small volume dependent ascites. Mild bladder wall thickening, which could be due to underdistention or cystitis in the appropriate clinical context. Mild gallbladder wall thickening and suspect cholelithiasis. No bladder distention or pericholecystic fluid. FINAL IMPRESSION: 1. Hematuria. 2. Coronary artery disease, status post stent placement. 3. End-stage renal disease, on dialysis. 4. Uncontrolled diabetes mellitus type 2 with diabetic nephropathy. 5. Hypertension with hypertensive nephropathy. 6. Dialysis dependent. 7. Pneumonia. 8. Right pleural effusion. PLAN OF TREATMENT: Of course, cystoscopy done with stent placement. We are going to hold on aspirin and Plavix obviously because of the bleeding. Continue amiodarone 200 mg daily, carvedilol 3.125 mg twice a day, furosemide 40 mg twice a day, gabapentin 100 mg as needed for neuropathy. Continue to monitor blood sugar before meals and at bedtime. He is on Lantus 8 units daily and 4 units daily for a total of 12 units daily. Continue with levothyroxine 88 mcg daily, sevelamer 800 mg three times a day, and Zocor 10 mg daily. Diet, renal diabetic diet. We are going to continue monitoring the patient. MD SILVANO Schultz/ANGEL /[id number]
[2019-06-11] VITALS (7 sets, daily range): BP systolic 97–118; BP diastolic 60–74
[2019-06-11] MEDS: CARVEDILOL 3.125 MG TAB PO SCH ×3 (01:03→21:00)
[2019-06-11] MEDS: MEXILETINE HCL 150 MG PO SCH ×4 (01:03→21:32)
[2019-06-11] MEDS: SIMVASTATIN 20 MG TAB PO SCH ×2 (01:03→20:39)
--- NOTE | 2019-06-11 01:04 | NUR ---
DIALYSIS COMPLETED 2.5 LITRE REMOVED.STABLE CONDITION.DUE MEDICATION GIVEN.PHONE AND CALL LIGHT WITHIN REACH.INSTRUCTED TO CALL FOR ASSISTANCE NEEDED.
--- NOTE | 2019-06-11 03:52 | NUR ---
RESTING IN THE BED.STABLE CONDITION.
[2019-06-11] MEDS: LEVOTHYROXINE SODIUM 88 MCG TAB PO SCH (06:15)
[2019-06-11] MEDS: AMIODARONE HCL 200 MG TAB PO SCH (06:15)
[2019-06-11] MEDS: FUROSEMIDE 40 MG TAB PO SCH ×2 (06:15→17:07)
[2019-06-11] MEDS: INSULIN GLARGINE 100 UNITS/ML VIAL SQ SCH (06:16)
[2019-06-11 06:31] LABS: BASOPHILS % 0.4 % (0.0-1.0); EOSINOPHILS # (AUTO) 0.1 (0.0-0.4); EOSINOPHILS % 1.5 % (0.0-6.0); HEMATOCRIT 35.2 % (38.2-49.6); LYMPHOCYTES # (AUTO) 0.4 (1.0-3.2); LYMPHOCYTES % 4.7 % (18.0-39.1); MEAN CORPUSCULAR HEMOGLOBIN 31.3 pg (28-32); MEAN CORPUSCULAR HGB CONC 31.3 g/dL (31-35); MONOCYTES # (AUTO) 0.7 (0.2-0.8); MONOCYTES % 9.1 % (4.4-11.3); NEUTROPHILS # (AUTO) 6.2 (2.1-6.9); NEUTROPHILS % 83.9 % (38.7-80.0); PLATELET COUNT 109 x10e3/uL (140-360); RED BLOOD COUNT 3.52 x10e6/uL (4.3-5.7); RED CELL DISTRIBUTION WIDTH 17.8 % (11.7-14.4)
[2019-06-11 06:49] LABS: ANION GAP 15.8 mmol/L (8-16); CREATININE, SERUM 3.97 mg/dL (0.72-1.25); POTASSIUM 4.8 mmol/L (3.5-5.1)
--- NOTE | 2019-06-11 07:04 | NUR ---
BED SIDE SHIFT REPORT GIVEN TO ONCOMING RN.STABLE CONDITION.
--- NOTE | 2019-06-11 07:25 | NUR ---
PT UP IN BED ,DENIES PAIN NO DISTRESS NTOED,BLADDER IRRIGATION IN PROCESS NO BLOD CLOTS NOTED
[2019-06-11] MEDS: INSULIN LISPRO 100 UNIT/1 ML 3ML VIAL SQ SCH ×4 (07:30→21:00)
[2019-06-11] MEDS: SEVELAMER CARBONATE 800 MG TAB PO SCH ×3 (09:05→17:00)
[2019-06-11] MEDS ORDERED: ACETAMINOPHEN 325 MG TAB PO PRN (11:45)
[2019-06-11] MEDS: CEFTRIAXONE SOD 2 GM/NS 100 ML 100 ML IV SCH (13:30)
--- NOTE | 2019-06-11 13:36 | Progress Note ---
DATE: SUBJECTIVE: The patient is doing well today. The urine is pinkish today. OBJECTIVE: VITAL SIGNS: Show blood pressure 119/65, temperature 98.3, heart rate 66 per minute, respiratory rate 16 per minute, and oxygen saturation 91%. LABORATORY DATA: CBC: White blood count 7.44, hemoglobin 11.0, hematocrit 35.2, , platelet count of 109,000. BMP; sodium 139, potassium 4.8, chloride 100, CO2 of 28, BUN 24, creatinine 3.97, glucose 94, calcium 9.0. IMPRESSION: 1. Hematuria, status post cystoscopy and stent placement in the right kidney. 2. History of coronary artery disease, status post stent placement. 3. End-stage renal disease, on dialysis. 4. Dialysis dependence. 5. Uncontrolled diabetes mellitus type 2 with diabetic nephropathy. 6. Hypertension with hypertensive nephropathy. 7. Lobar pneumonia. 8. Right pleural effusion. PLAN OF TREATMENT: Continue monitoring blood sugar before meals and at bedtime. Continue diabetic and renal diet. Continue amiodarone 200 mg daily, levothyroxine 88 mcg daily, carvedilol 3.125 mg twice a day, furosemide 80 mg twice a day, gabapentin 100 mg at bedtime, sevelamer 800 mg three times a day, Lantus 8 units daily, daily, simvastatin 10 mg at bedtime. We are going to start also the patient on antibiotics Zithromax 250 mg p.o. daily because of possible interaction with amiodarone. Dr. Wallace is going to follow the case from the Urology point of view. The patient has stent placement that he has to continue. Continued bladder irrigation. MD SILVANO Schultz/ANGEL /[id number]
--- NOTE | 2019-06-11 14:42 | Progress Note ---
DATE: 06/11/2019 SUBJECTIVE: Denies any chest pain or shortness of breath. OBJECTIVE: VITAL SIGNS: Temperature 97.6, heart rate 63, blood pressure 101/61, respiratory rate 16, and O2 saturation 95%. GENERAL: In no acute distress. Alert. NECK: No JVD. CHEST: Clear to auscultation. CARDIOVASCULAR: Regular rate and rhythm. Normal S1 and S2. ABDOMEN: Soft. Bowel sounds positive. EXTREMITIES: No edema. Earl in place. CARDIOVASCULAR MEDICATIONS: Reviewed. Amiodarone 200 mg daily, carvedilol 3.125 mg b.i.d., furosemide 80 mg b.i.d., and simvastatin 10 mg at bedtime. STUDIES: Reviewed. Sodium 139, potassium 4.8, chloride 100, bicarbonate 28, BUN 24, creatinine 3.9, and glucose 94. White blood cells 7.4, hemoglobin 11, and platelets 199. PT 16.3, PTT 39.4, and INR 1.22. AST 13, ALT 13, and alkaline phosphatase 122. ASSESSMENT AND PLAN: A 54-year-old man with anemia, ventricular tachycardia, history of severe chronic systolic heart failure, diabetes, hypertension, end-stage renal disease, dyslipidemia, coronary artery disease, presenting with hematuria, now status post cystoscopy. Await recommendations from Urology. The patient reports possible need for further surgery. If so, the patient is at elevated risk for adverse cardiovascular outcomes given his known severe systolic heart failure and dilated cardiomyopathy. However, at this point there is no active unstable cardiac conditions, the patient is on beta-yesi and amiodarone. PVCs noted on telemetry. No additional arrhythmia so far. Continue to monitor on a daily basis. Twin Burkett MD [facility]/MODL /[id number]
--- NOTE | 2019-06-11 17:07 | NUR ---
PT UP IN BED NO DISTRESS NOTTED ,DENIES PAIN ,BLADDER IRRIGATION IN PROCESS.
--- NOTE | 2019-06-11 20:03 | NUR ---
Received change of shift report from AM nurse. Walking rounds completed.
--- NOTE | 2019-06-11 22:03 | Operative Report ---
DATE OF PROCEDURE: 06/10/2019 SURGEON: William Wallace MD PREOPERATIVE DIAGNOSIS: Gross hematuria. POSTOPERATIVE DIAGNOSIS: 1. Gross hematuria. 2. Filling defects within the right renal pelvis. OPERATIONS PERFORMED: 1. Cystourethroscopy with bilateral ureteral catheterization and retrograde ureteropyelography. 2. Interpretation of retrograde ureteropyelography. 3. Right ureteroscopy (separate procedure performed to evaluate the right side in light of the gross hematuria coming from the right ureteral orifice). 4. Cystoscopy with insertion of right indwelling ureteral stent (separate procedure performed to allow filling defects to not obstruct the kidney and hopefully allow him to pass). 5. Interpretation of cystography. ANESTHESIA: General. COMPLICATIONS: None. CLINICAL SUMMARY: Please refer to consultation dictation from the prior date. This procedure was of course an emergency due to the fact the patient is actively bleeding and that needs to be evaluated despite the COVID-19 emergency. OPERATIVE PROCEDURE IN DETAIL: Informed consent was verified. Ken Ragland was properly identified, taken to the operating room, and placed on the cystoscopy table in supine position. Anesthesia was uneventfully begun. The patient was then carefully and gently repositioned in dorsal lithotomy position with all pressure points well padded. His genitalia were prepared and draped in usual sterile fashion. The cystoscope sheath with the visual obturator in place was atraumatically inserted. The patient's urethra was guided down the unremarkable urethra through the normal sphincteric region through the prostate bed, which was significant for BPH and into the patient's bladder. We identified several small old clots. Panendoscopy revealed grade 1 trabeculations, but no tumors and no stones. Blood jetted out the right ureteral orifice. This happened several times and under observation. A ureteral catheter was used to cannulate the left ureter and retrograde pyelograms were performed. Inserted the right ureter and retrograde ureteropyelograms were performed. A guidewire was then placed in the right ureter and guided to the level of the patient's kidney. Flexible ureteroscope was then placed over the guidewire and guided up to the patient's kidney. Panendoscopy revealed there were blood clots within the patient's kidney. We performed very careful panendoscopy, but could not find any tumors, did not find an exact point of bleeding, but no question there was bleeding occurring due to the fact that there was blood clots there and we had to irrigate the renal pelvis in order to get any visualization. We tried to aspirate the filling defects and there were blood clots, but this was not successful. With cystoscopic and fluoroscopic guidance, we carefully evaluated the ureter as we exited and it was unremarkable. With cystoscopic and fluoroscopic guidance, a right-sided indwelling ureteral stent was then placed, it was coiled in the patient's kidneys as well as the patient's bladder. The retaining suture was cut short. Earl catheter was then placed, it was irrigated to and fro to ensure it worked properly. Contrast was then injected in the Earl catheter and performed cystography. Interpretation of retrograde ureteropyelography, no radiologist present. Contrast was injected in retrograde fashion bilaterally. The left side was relatively unremarkable. There were no tumors, no stones, no diverticula. No filling defects. The right side exhibited filling defects within the renal pelvis. The right side will also show some degree of ptosis and some fullness. The stent was in good position, coiled the patient's kidneys as well as the patient's bladder at the end of the case. Interpretation of cystography, no radiologist present. Contrast was injected via the Earl catheter. The Earl catheter balloon was within the patient's bladder. There were trabeculations noted. There were no diverticula. The sphincteric reflexes difficult to traffic expert, having had recent retrograde pyelograms. The patient's bladder was drained. Cystoscope was withdrawn. Belladonna and opium suppository were placed, revealing a 40 g prostate, that is smooth, nonfluctuant without any nodules. The patient was then uneventfully reversed from anesthesia and taken to recovery room in stable condition. There were no complications to the procedure. He tolerated the procedure well. Explicit postop instructions were given and we will follow the patient up during hospitalization, of course, we will follow the patient up later remove his stent. Should the patient have persistent bleeding in the right kidney, right nephrectomy will be in order. William Wallace MD [facility]/MODL /[id number] cc: Nat Castaneda MD
[2019-06-11] MEDS: B&O 60MG R/S 60 MG SUPP PR PRN (22:52)
[2019-06-12] VITALS (7 sets, daily range): BP systolic 97–120; BP diastolic 60–82
--- NOTE | 2019-06-12 | NUR ---
Patient AAOx3. Continue bladder irrg. pink color urine with very small clots. Patient requested B and O supp. for slight discomfort. IV intact left FA Right dialysis fiscular intact. Blood pressure at 88/62 and 97/60 held coreg. BS at 138 refused insulin. Continue monitor.
--- NOTE | 2019-06-12 03:45 | NUR ---
Patient resting quitly at this time. Continue monitor.
[2019-06-12] MEDS: FUROSEMIDE 40 MG TAB PO SCH ×2 (05:18→17:27)
[2019-06-12] MEDS: CARVEDILOL 3.125 MG TAB PO SCH ×2 (05:18→21:00)
[2019-06-12] MEDS: LEVOTHYROXINE SODIUM 88 MCG TAB PO SCH (05:18)
[2019-06-12] MEDS: AMIODARONE HCL 200 MG TAB PO SCH (05:18)
[2019-06-12] MEDS: MEXILETINE HCL 150 MG PO SCH ×3 (05:18→21:41)
[2019-06-12] MEDS: INSULIN GLARGINE 100 UNITS/ML VIAL SQ SCH ×2 (06:00→17:00)
[2019-06-12] MEDS: INSULIN LISPRO 100 UNIT/1 ML 3ML VIAL SQ SCH ×4 (07:30→21:00)
--- NOTE | 2019-06-12 07:39 | NUR ---
PT UP IN BED ,DENIES PAIN,BLADDER IRRIGATION IN PROCESS
[2019-06-12] MEDS: SEVELAMER CARBONATE 800 MG TAB PO SCH ×3 (08:00→17:00)
[2019-06-12] MEDS: B&O 60MG R/S 60 MG SUPP PR PRN (11:30)
--- NOTE | 2019-06-12 11:30 | NUR ---
PT C/O BLADDER SPASMS MEDICATED
[2019-06-12] MEDS: CEFTRIAXONE SOD 2 GM/NS 100 ML 100 ML IV SCH (12:39)
--- NOTE | 2019-06-12 14:07 | NUR ---
PT REQUESTED SHAH TO BE FLUSHED .FLUSHED WITH 20CC WATER,NO BLOOD CLOTS NOTED
--- NOTE | 2019-06-12 14:21 | Progress Note ---
DATE: Internal Medicine Progress Note SUBJECTIVE: The patient is doing well. No significant complaint today. PHYSICAL EXAMINATION: VITAL SIGNS: We have a blood pressure of 109/66, temperature 97.8, heart rate 62 per minute, respiratory rate 18 per minute, oxygen saturation 96%. ABDOMEN: Soft. EXTREMITIES: Show no evidence of edema. NEUROLOGIC: Alert and oriented x3. No more significant motor deficits. LABORATORY DATA: We have CBC with white blood count 7.44, hemoglobin 11.0, which is pretty much stable from arrival, hematocrit 35.2, MCV is 100.0, platelet count 109,000. Last blood sugar is 138. On the BMP; sodium 139, potassium 4.8, chloride 100, CO2 28, BUN 24, creatinine 3.97, GFR is only 16, which makes him a chronic renal failure stage 4. BUN creatinine ratio . FINAL IMPRESSION: 1. Hematuria. 2. Coronary artery disease. 3. End-stage renal disease, on dialysis. 4. Dialysis dependent. 5. Uncontrolled diabetes mellitus type 2 with diabetic nephropathy. 6. Hypertension with hypertensive nephropathy. 7. Lobar pneumonia. 8. Right pleural effusion. PLAN OF TREATMENT: Ceftriaxone 2 g IV once a day, Tylenol 325 mg q.4 hours as needed for mild pain or fever, amiodarone 200 mg daily, Coreg 3.125 mg twice a day. Continue furosemide 80 mg twice a day, gabapentin 100 mg at night p.r.n. for neuropathy. He is also taking Lantus 8 units daily and 4 units daily for a total of 12 units daily. Continue monitoring blood sugar before meals and at bedtime, continue diabetic renal diet. Continue levothyroxine 88 mcg daily, sevelamer 800 mg three times a day and Zocor [address] Wallace and Dr. Becker are following the case. So far, the patient did have significant hematuria. He is on continuous bladder irrigation. MD SILVANO Schultz/MODL /[id number]
--- NOTE | 2019-06-12 17:27 | NUR ---
PT IN BED RESTING ,DENIES PAIN,BLADDER IRRIGATION IN PROSCES NO BC NOTED
--- NOTE | 2019-06-12 20:00 | NUR ---
Received change of shift report from AM nurse. Walking rounds completed.
[2019-06-12] MEDS: SIMVASTATIN 20 MG TAB PO SCH (21:00)
[2019-06-13] VITALS: BP 110/73
--- NOTE | 2019-06-13 | NUR ---
Irragation flowing continuesly with no noted clots. Light pink in color. Patient with no c/o at this time.
[2019-06-13 04:00] VITALS: BP 98/64
--- NOTE | 2019-06-13 05:50 | NUR ---
Patient had emesis episode. Suctioned. Patient repositioned to the head of the bed. Patient AAOx3. Did thinkhe was at [place].
--- NOTE | 2019-06-13 05:53 | NUR ---
Tele called and stated patient HR 140's. Went down to check on patient. Patient not breathing. CPR started. Patient in wide complex PEA. Patient time 0615. Family called Jammie and David Ragland in route to hospital. Dr Corona and Rodrigo called. Dr Corona s/w Er Dr. Smith. paperwork completed.
[2019-06-13] MEDS ORDERED: EPINEPHRINE HCL SYRINGE IV ONE (06:14)
[2019-06-13] MEDS ORDERED: CALCIUM CHLORIDE 10% 1.36 MEQ/ML 10ML SYR IV ONE (06:14)
[2019-06-13] MEDS ORDERED: SODIUM BICARBONATE 8.4% 50 ML VIAL IV ONE (06:14)
--- NOTE | 2019-06-13 06:24 | NUR ---
Patient at 15.
--- NOTE | 2019-06-13 06:31 | NUR ---
[facility] responded to [employer]. Provided calming pastoral presence. Followed up with staff. Will mail condolence letter and brochure on grief to [facility]. MANDY SILVER [facility] O: [phone]
--- NOTE | 2019-06-13 06:42 | NUR ---
spoke margarita sheth with [facility]. . primary nurse made aware.
--- NOTE | 2019-06-13 06:58 | NUR ---
Received report from night nurse that patient at 0615. Patient is clean. Will get home name from family member.
--- NOTE | 2019-06-13 07:00 | NUR ---
Dr. Becker returned call. Notified patient has .
--- NOTE | 2019-06-13 08:17 | NUR ---
[facility] called in regards to case, hold off into calling the home at this time.
--- NOTE | 2019-06-13 09:19 | NUR ---
Karely with [facility] notified nurse that there is a hold in body due to wanting to approach for donation. Notified retail warehouse supervisor, nurse to notified [facility] that we don't have a morgue and body cannot stay in hospital that long. Called Karely to notify at this time.
--- NOTE | 2019-06-13 10:01 | Discharge Summary ---
HISTORY: A 54-year-old male, who had a history of end-stage cardiomyopathy; history of coronary artery disease; history of end-stage renal disease, on dialysis; history of ventricular tachycardia; came to the hospital complaining of blood in the urine. He was placed on a continued bladder irrigation by Dr. Wallace, urologist. Cystoscopy was done and a stent was placed in the right ureter by Dr. Wallace. Dr. Cole saw the patient from the cardiovascular point of view. His impression was the patient has end-stage chronic systolic heart failure with secondary to dilated severe end-stage cardiomyopathy, history of coronary artery disease with a prior LAD stent, diabetes, and end-stage renal disease, very poor prognosis due to the combination of medical conditions. The patient received continued bladder irrigation. The hematuria . He is being monitored for his blood sugar. The patient was seen by Dr. Pena for end-stage renal disease. He was on dialysis. The patient as of yesterday has no complaints, doing well, vital signs were stable, oxygen saturation was more than 94%. Suddenly, early this morning the patient had a cardiac arrest and ACLS was performed and despite that, the patient did not survive. FINAL IMPRESSION: 1. End-stage cardiomyopathy. 2. End-stage renal disease, on dialysis. 3. History of coronary artery disease. 4. History of ventricular tachycardia. 5. Anemia of chronic disease. 6. End-stage renal disease. 7. Status post hematuria. As I said, most likely the reason for outcome was most likely a cardiovascular event, most likely because the patient's with severe cardiomyopathy usually have a tendency to have sudden , so that is most likely the reason for this outcome in this unfortunate case. As I said, the patient was seen by Dr. Twin Cole for Cardiology and Dr. Bruce Pena for Nephrology because the patient was on dialysis and also Dr. William Wallace for Urology. MD SILVANO Schultz/ANGEL /[id number]
--- NOTE | 2019-06-13 10:13 | NUR ---
Patient off unit at this time, picked up by home [facility].
== END 2019-06-13 06:15 | disposition expired | DRG 659 ==
LOC: ER 12:14 → ERHOLD 12:39 → MED/SURG3 15:59
PROVIDERS: ADMIT Internal Medicine; ATTEND Internal Medicine
PROC: 5A1D70Z Performance of Urinary Filtration, Intermittent, Less than 6 Hours Per Day (ICD-10-PCS; principal; 2019-06-10 12:00)
PROC: 0T768DZ Dilation of Right Ureter with Intraluminal Device, Via Natural or Artificial Opening Endoscopic (ICD-10-PCS; 2019-06-11)
PROC: BT141ZZ Fluoroscopy of Kidneys, Ureters and Bladder using Low Osmolar Contrast (ICD-10-PCS; 2019-06-11)
PROC: 5A12012 Performance of Cardiac Output, Single, Manual (ICD-10-PCS; 2019-06-13)
DX: R31.0 Gross hematuria (principal); J96.01 Acute respiratory failure with hypoxia; J18.1 Lobar pneumonia, unspecified organism; I50.22 Chronic systolic (congestive) heart failure; J90 Pleural effusion, not elsewhere classified; Z68.1 Body mass index [BMI] 19.9 or less, adult; I13.2 Hypertensive heart and chronic kidney disease with heart failure and with stage 5 chronic kidney disease, or end stage renal disease; I42.0 Dilated cardiomyopathy; E44.0 Moderate protein-calorie malnutrition; R93.41 Abnormal radiologic findings on diagnostic imaging of renal pelvis, ureter, or bladder; N18.6 End stage renal disease; N39.0 Urinary tract infection, site not specified; E11.21 Type 2 diabetes mellitus with diabetic nephropathy; D69.6 Thrombocytopenia, unspecified; R80.9 Proteinuria, unspecified; R82.81 Pyuria; I25.10 Atherosclerotic heart disease of native coronary artery without angina pectoris; D63.8 Anemia in other chronic diseases classified elsewhere; Z99.2 Dependence on renal dialysis; E11.22 Type 2 diabetes mellitus with diabetic chronic kidney disease; Z95.5 Presence of coronary angioplasty implant and graft; Z95.810 Presence of automatic (implantable) cardiac defibrillator; N40.0 Benign prostatic hyperplasia without lower urinary tract symptoms; N28.83 Nephroptosis; Z79.82 Long term (current) use of aspirin; Z79.01 Long term (current) use of anticoagulants; E11.42 Type 2 diabetes mellitus with diabetic polyneuropathy; E11.319 Type 2 diabetes mellitus with unspecified diabetic retinopathy without macular edema; E78.5 Hyperlipidemia, unspecified; Z82.49 Family history of ischemic heart disease and other diseases of the circulatory system; I49.3 Ventricular premature depolarization; D63.1 Anemia in chronic kidney disease; Z79.4 Long term (current) use of insulin; I46.2 Cardiac arrest due to underlying cardiac condition
CPT/HCPCS: 36415; 74176; 74420; 80048; 80053; 81001; 82550; 82553; 82607; 82746; 82948; 84484; 85025; 85610; 85730; 86704; 86706; 87086; 87340; 88112; 88305; 92950; 99284; C1758; C1766; C1769; C2617; J0171; J0696; J1100; J1815; J2001; J2405; J7040; Q9967